=== PATIENT | female | born 1945 | race Caucasian/White ===

== ENCOUNTER → 2017-03-03 | Outpatient (CLI) | payer OTHER ==
[~2017-03-03] MED LIST: CARV12.52 PO; CLC100 PO; CYCL10TA6 PO; ENAL5TAB83 PO; FURO-85 PO; GABA-113 PO; HMLIS PO; INSU100I2 SQ; INSU1INJ33 SQ; LORA-741 PO; MIRA1TAB3 PO; OXYC-57 PO; PRAV20TA PO
[2017-03-03 18:20] LABS: RATIO 108.6 mcg/mg (0-30.0)
[2017-03-03 18:50] LABS: ALT/SGPT 24 U/L (12-78); BLOOD UREA NITROGEN 59 mg/dl (7-18); BUN/CREATININE RATIO 36.9 (10-20); CALCIUM 10.3 mg/dl (8.5-10.1); CARBON DIOXIDE 24 mmol/L (21-32); CHLORIDE 104 mmol/L (98-107); GLUCOSE 188 mg/dl (70-99); POTASSIUM 5.3 mmol/L (3.5-5.1); SODIUM 140 mmol/L (136-145)
[2017-03-03 19:01] LABS: ALB/GLOB RATIO 1.1 (0.9-2); ALKALINE PHOSPHATASE 60 U/L (45-117); AST/SGOT 12 U/L (15-37); CHOLESTEROL 227 mg/dl (0-200); CHOLESTEROL/HDL RATIO 2.2; HDL CHOLESTEROL 103 mg/dl; LDL CHOLESTEROL CALCULATED 98 mg/dl; THYROID STIMULATING HORMONE 0.638 uIu/ml (0.300-4.500); TRIGLYCERIDES 132 mg/dl (0-150); VERY LOW DENSITY LIPOPROT CALC 26 mg/dl
[2017-03-04 07:13] LABS: ESTIMATED AVERAGE GLUCOSE 169 mg/dl; HA1C FLAG Normal (Normal)
== END | disposition home or self-care (01) ==
LOC: C.LAB1850 16:25
PROVIDERS: ATTEND Nurse Practitioner Family
DX: E11.65 Type 2 diabetes mellitus with hyperglycemia (principal)

== ENCOUNTER → 2017-03-18 | Outpatient (CLI) | payer OTHER ==
[2017-03-18 14:54] LABS: BASO % 0.2 %; BASO ABS # 0.02 K/uL (0-0.2); COMPLETE YES; EOS % 0.2 %; HEMATOCRIT 38.9 % (37-47); IG% 0.2 %; LYMPH % 12.3 %; LYMPH ABS # 1.12 K/uL (1.2-3.4); MEAN CELL VOLUME 87.8 fL (80-100); MEAN CORPUSCULAR HEMOGLOBIN 29.6 pg (25-34); MEAN CORPUSCULAR HGB CONC 33.7 g/dl (32-36); MEAN PLATELET VOLUME 10.9 fL (7.4-10.4); MONO % 2.5 %; NEUT % 84.6 %; PLATELET COUNT 274 K/uL (130-400); RED BLOOD COUNT 4.43 M/uL (4.2-5.4); WHITE BLOOD COUNT 9.07 K/uL (4.8-10.8)
[2017-03-18 15:15] LABS: BLOOD UREA NITROGEN 56 mg/dl (7-18); BUN/CREATININE RATIO 37.2 (10-20); CALCIUM 10.2 mg/dl (8.5-10.1); CARBON DIOXIDE 27 mmol/L (21-32); CHLORIDE 107 mmol/L (98-107); GLUCOSE 209 mg/dl (70-99); MAGNESIUM 2.4 mg/dl (1.8-2.4); PHOSPHORUS 3.3 mg/dl (2.5-4.9); POTASSIUM 5.1 mmol/L (3.5-5.1); SODIUM 141 mmol/L (136-145)
[2017-03-18 15:27] LABS: MANUAL MICROSCOPIC REQUIRED? NO; REVIEW REQ? NO; URINE APPEARANCE CLEAR (CLEAR); URINE BILIRUBIN NEG (NEG); URINE COLOR ORANGE; URINE EPITHELIAL CELL AUTO 20-30 /lpf (0-5); URINE NITRITE NEG (NEG); URINE SPECIFIC GRAVITY 1.015 (1.000-1.030); UROBILINOGEN NEG (NEG); ZZUR CULT IF INDIC CLEAN CATCH NO
== END | disposition home or self-care (01) ==
LOC: C.LAB1850 13:27
PROVIDERS: ATTEND Internal Medicine Nephrology
DX: N17.9 Acute kidney failure, unspecified (principal)

== ENCOUNTER → 2017-05-13 | Outpatient (CLI) | payer OTHER ==
[2017-05-13 15:02] LABS: URINE PROTIEN/CREAT RATIO 0.2 (0-0.2); URINE TOTAL PROTEIN 7.6 mg/dl (0-11.9)
[2017-05-13 15:17] LABS: BLOOD UREA NITROGEN 39 mg/dl (7-18); CALCIUM 9.6 mg/dl (8.5-10.1); CARBON DIOXIDE 31 mmol/L (21-32); CHLORIDE 108 mmol/L (98-107); GLUCOSE 160 mg/dl (70-99); MAGNESIUM 1.8 mg/dl (1.8-2.4); PHOSPHORUS 3.1 mg/dl (2.5-4.9); POTASSIUM 3.8 mmol/L (3.5-5.1); SODIUM 145 mmol/L (136-145)
[2017-05-13 15:29] LABS: URINE APPEARANCE CLEAR (CLEAR); URINE BILIRUBIN NEG (NEG); URINE COLOR YELLOW; URINE NITRITE NEG (NEG); URINE PH 5.5 (4.5-7.5); URINE SPECIFIC GRAVITY 1.014 (1.000-1.030); UROBILINOGEN NEG (NEG); ZZUR CULT IF INDIC CLEAN CATCH NO
[2017-05-13 15:30] LABS: MANUAL MICROSCOPIC REQUIRED? NO; REVIEW REQ? NO
== END | disposition home or self-care (01) ==
LOC: C.LAB1850 12:48
PROVIDERS: ATTEND Internal Medicine Nephrology
DX: N17.9 Acute kidney failure, unspecified (principal)

== ENCOUNTER → 2017-05-28 | Outpatient (CLI) | payer OTHER ==
[~2017-05-28] MED LIST changes: +GADAVIST IV PRN
--- NOTE | 2017-05-28 15:04 | DIAGNOSTIC IMAGING REPORT ---
ABDOMINAL MRI WITH AND WITHOUT INTRAVENOUS CONTRAST HISTORY: N28.89 Renal mass TECHNIQUE: Multiplanar multisequence MRI of the abdomen was performed both before and after the intravenous administration of contrast to evaluate the kidneys. COMPARISON STUDY: Outside hospital renal ultrasound 04/30/2017. FINDINGS: There is confirmation of the 2.7 x 2.6 x 2.6 cm T2 hyperintense, T1 hypointense exophytic enhancing mass within the lateral interpolar region of the right kidney. This abuts but does not invade into the undersurface of the right hepatic lobe. No evidence for renal vein invasion. No hydronephrosis. There is a 1.2 cm T2 hyperintense, T1 hypointense lesion within the right hepatic lobe. This demonstrates a punctate focus of enhancement on the arterial phase with delayed filling. Therefore, this likely represents a hemangioma. The spleen, pancreas, gallbladder, and adrenal glands are unremarkable. Posterior fusion and decompression within the lumbar spine. There is an 8 mm T2 hyperintense nonenhancing lesion within the upper pole the left kidney. This is consistent with a cyst. IMPRESSION: 1. A 2.7 x 2.6 x 2.6 cm exophytic enhancing mass within the right kidney. This is consistent with a renal cell carcinoma until proven otherwise. 2. A 1.2 cm T2 hyperintense enhancing lesion within the right hepatic lobe. This has slightly assessed due to the small size but likely represents a hemangioma. Electronically signed by: Dioni Cowart M.D. 05/28/2017 3:03 PM Dictated Date/Time: 05/28/2017 2:51 PM
== END | disposition home or self-care (01) ==
LOC: C.MRI 12:23
PROVIDERS: ATTEND Urology
DX: N28.89 Other specified disorders of kidney and ureter (principal); K76.9 Liver disease, unspecified

== ENCOUNTER 2017-07-09 07:28 | Inpatient (IN) | payer OTHER ==
[2017-06-23 10:48] VITALS: BMI 47.0
--- NOTE | 2017-06-23 11:26 | PAT Medication Instructions ---
Service Date Jun 23, 2017. Current Home Medication List Carvedilol (Coreg), 12.5 MG PO BID Cyclobenzaprine Hcl (Flexeril), 10 MG PO DAILY PRN for BACK SPASM Enalapril (Vasotec), 5 MG PO QAM Furosemide (Lasix), 20 MG PO QAM Gabapentin (Neurontin), 300 MG PO BID Insulin Degludec (Tresiba Flextouch), 24 UNITS SQ HS Insulin Human Lispro (Humalog Kwikpen), 12 UNITS PO LUNCH Insulin Lispro (Human) (Humalog Kwikpen), 7 UNITS SQ QAM Insulin Lispro (Human) (Humalog Kwikpen), 15 UNITS SQ SUPPER Lorazepam (Ativan), 0.5 MG PO HS Mirabegron (Myrbetriq Er), 50 MG PO QAM Pravastatin (Pravachol ), 40 MG PO HS Medication Instructions For Your Scheduled Surgery - Hold the following medications the morning of surgery: Enalapril (Vasotec), 5 MG PO QAM Furosemide (Lasix), 20 MG PO QAM Cyclobenzaprine Hcl (Flexeril), 10 MG PO DAILY PRN for BACK SPASM Insulin Human Lispro (Humalog Kwikpen), 12 UNITS PO LUNCH Insulin Lispro (Human) (Humalog Kwikpen), 7 UNITS SQ QAM - Take the following medications the morning of surgery with a sip of water OTHERWISE NOTHING TO EAT OR DRINK AFTER MIDNIGHT: Gabapentin (Neurontin), 300 MG PO BID Carvedilol (Coreg), 12.5 MG PO BID Mirabegron (Myrbetriq Er), 50 MG PO QAM - Take the following medications as scheduled the night before surgery: Gabapentin (Neurontin), 300 MG PO BID Carvedilol (Coreg), 12.5 MG PO BID Lorazepam (Ativan), 0.5 MG PO HS Pravastatin (Pravachol ), 40 MG PO HS Cyclobenzaprine Hcl (Flexeril), 10 MG PO DAILY PRN for BACK SPASM Insulin Degludec (Tresiba Flextouch), 24 UNITS SQ HS Insulin Lispro (Human) (Humalog Kwikpen), 15 UNITS SQ SUPPER If you have any questions please call us at [phone] or [phone] or [phone]
[2017-06-23 12:27] LABS: BASO % 0.4 %; BASO ABS # 0.03 K/uL (0-0.2); COMPLETE YES; HEMATOCRIT 34.7 % (37-47); IG% 0.3 %; LYMPH % 26.5 %; LYMPH ABS # 1.97 K/uL (1.2-3.4); MEAN CELL VOLUME 90.6 fL (80-100); MEAN CORPUSCULAR HEMOGLOBIN 28.7 pg (25-34); MEAN CORPUSCULAR HGB CONC 31.7 g/dl (32-36); MEAN PLATELET VOLUME 9.8 fL (7.4-10.4); MONO % 7.7 %; NEUT % 62.1 %; PLATELET COUNT 327 K/uL (130-400); RED BLOOD COUNT 3.83 M/uL (4.2-5.4); WHITE BLOOD COUNT 7.42 K/uL (4.8-10.8)
[2017-06-23 12:36] LABS: URINE APPEARANCE CLEAR (CLEAR); URINE BILIRUBIN NEG (NEG); URINE COLOR YELLOW; URINE EPITHELIAL CELL AUTO >30 /lpf (0-5); URINE NITRITE NEG (NEG); URINE PH 6.5 (4.5-7.5); URINE SPECIFIC GRAVITY 1.018 (1.000-1.030); UROBILINOGEN NEG (NEG)
[2017-06-23 12:37] LABS: ALT/SGPT 18 U/L (12-78); AST/SGOT 12 U/L (15-37); BLOOD UREA NITROGEN 38 mg/dl (7-18); BUN/CREATININE RATIO 29.2 (10-20); CALCIUM 9.6 mg/dl (8.5-10.1); CARBON DIOXIDE 29 mmol/L (21-32); CHLORIDE 109 mmol/L (98-107); GLUCOSE 102 mg/dl (70-99); POTASSIUM 4.3 mmol/L (3.5-5.1); SODIUM 142 mmol/L (136-145)
[2017-06-23 12:39] LABS: MANUAL MICROSCOPIC REQUIRED? NO; REVIEW REQ? NO
[2017-06-23 12:40] LABS: ALB/GLOB RATIO 0.7 (0.9-2); ALKALINE PHOSPHATASE 120 U/L (45-117)
[~2017-07-09] VITALS: Ht 165.1 cm; Wt 128.5 kg
[2017-07-09] VITALS (8 sets, daily range): BP systolic 120–168; BP diastolic 67–83; PULSE 73–95; TEMP 36.2–36.5; O2SAT 95–100; BMI 47.0
[~2017-07-09 07:28] MED LIST changes: +CEFAZOLIN 3000 MG/65 ML D5W IV SCH; -CLC100 PO; -GADAVIST IV PRN; +LACTATED RINGER'S 1000ML 1,000 ML IV SCH; -OXYC-57 PO
[2017-07-09] MEDS ORDERED: EpHEDrine SULFATE INJ 50 MG/ML AMP IV PRN (07:30)
[2017-07-09] MEDS ORDERED: ATROPINE SULFATE 0.1 MG/ML 5ML SYR IV PRN (07:30)
[2017-07-09] MEDS ORDERED: ONDANSETRON INJ 2 MG/ML 2 ML VIAL IV PRN ×2 (07:30→14:30)
[2017-07-09] MEDS ORDERED: HYDROmorphone INJ 1 MG/ML SYR IV PRN ×2 (07:30→14:30)
[2017-07-09] MEDS ORDERED: FENTANYL CITRATE INJ 50 MCG/1 ML 2 ML VIAL IV PRN (07:30)
[2017-07-09] MEDS ORDERED: PROPOFOL IV EMULSION 10 MG/ML 20 ML VIAL IV ONE (08:22)
[2017-07-09] MEDS ORDERED: DEXAMETHASONE SOD INJ 4 MG/ML VIAL ONE (08:22)
[2017-07-09] MEDS ORDERED: FENTANYL CITRATE INJ 50 MCG/1 ML 2 ML VIAL ONE ×4 (08:22→15:11)
[2017-07-09] MEDS ORDERED: ROCURONIUM BROMIDE 10 MG/ML 5 ML VIAL IV ONE (08:22)
[2017-07-09] MEDS ORDERED: ONDANSETRON INJ 2 MG/ML 2 ML VIAL ONE (08:22)
[2017-07-09] MEDS ORDERED: LIDOCAINE HCL 2% 2 ML VIAL (20MG/ML) ONE (08:22)
--- NOTE | 2017-07-09 10:25 | History & Physical Bridge Note ---
H&P Re-Evaluation Bridge Note: I have examined the patient, reviewed the History & Physical and in the interval since the performance of the History & Physical I have noted the following changes of clinical significance: No changes noted
[2017-07-09] MEDS ORDERED: ACETAMINOPHEN 1000 MG/100 ML IV IV ONE (10:31)
[2017-07-09] MEDS ORDERED: GELATIN SPONGE SZ 100 ONE (11:10)
[2017-07-09] MEDS ORDERED: MANNITOL 25% 50 ML VIAL ONE ×2 (11:11→14:09)
[2017-07-09] MEDS ORDERED: BUPIVACAINE 0.5 % 5 MG/1 ML MPF 30ML VIAL ONE (11:11)
[2017-07-09] MEDS ORDERED: ALBUMIN HUMAN 5% 12.5 GM/250 ML VIAL IV ONE (11:37)
[2017-07-09] MEDS ORDERED: SUCCINYLCHOLINE 100MG/5ML SYR IV ONE (12:32)
[2017-07-09] MEDS ORDERED: CISATRACURIUM BESYLATE IV SOLN 2 MG/ML 10 ML VIAL ONE (12:32)
[2017-07-09] MEDS ORDERED: EpHEDrine SULFATE INJ 50 MG/ML AMP ONE (12:50)
[2017-07-09] MEDS ORDERED: PHENYLEPHRINE 100MCG/ML 5ML SYR ONE (12:50)
[2017-07-09] MEDS ORDERED: FLOSEAL HEMOSTATIC MATRIX 10ML TOP ONE (13:57)
[2017-07-09] MEDS ORDERED: TISSEEL FIBRIN SEALANT 10ML TOP ONE (13:58)
[2017-07-09] MEDS ORDERED: INSULIN PROTOCOL GOAL RANGE ONE (14:30)
[2017-07-09] MEDS ORDERED: CYCLOBENZAPRINE HCL 10 MG TAB PO PRN (14:30)
[2017-07-09] MEDS ORDERED: ACETAMINOPHEN 325 MG TAB PO PRN (14:30)
[2017-07-09] MEDS ORDERED: GLUCOSE 10 TABS/TUBE PO PRN (14:45)
[2017-07-09] MEDS ORDERED: DEXTROSE 50% 50 ML SYR IV PRN (14:45)
[2017-07-09] MEDS ORDERED: GLUCOSE 40% GEL 15 GM TUBE PO PRN (14:45)
[2017-07-09] MEDS ORDERED: GLUCAGON FOR INJ 1 MG VIAL SQ PRN (14:45)
[2017-07-09] MEDS ORDERED: PHARMACY GLYCEMIC MGMT CONSULT SCH (14:52)
--- NOTE | 2017-07-09 15:08 | Pharmacy Progress Note ---
Glycemic Control Intl Consult Date of Service Jul 09, 2017. Scope Glycemic Pharmacist consulted by Dr Artur Ham on 07/09/17 for glycemic control and to write orders per [facility] inpatient glycemic control protocol Objective Weight (Kilograms): 128.50 Accuchecks BSG (last 24hrs): Test 07/09/17 08:19 07/09/17 14:27 Bedside Glucose 87 mg/dl (70-90) Laboratory Data (last 24hrs) Test 07/09/17 14:27 Recent Pertinent Medications Outpatient Anti-diabetic Regimen: * Tresiba (insulin degludec) 25 units HS * Humalog 7 units with breakfast, 12 units with lunch, 15 units with dinner * A1c = 7.5 % 03/03/17 Risk Factors for Insulin Resistance: * Steroids: Dexamethasone 8mg IV x1 today in OR * Recent Surgery: s/p right partial nephrectomy * Diet:clears Assessment & Plan ASSESSMENT: * 72 year old female type 2 diabetic s/p right partial nephrectomy. BSG prior to surgery 87mg/dl * Patient is currently receiving an average of 59 units of insulin per day at home * 25 units of basal insulin * 34 units of prandial/correctional insulin * I will start patient on same dose of basal insulin and CR and CF slightly tighter d/t IV steroids, but not too tight as patient is only on a clear liquid diet, and check BSG overnight for additional doses of Novolog of steroid induced hyperglycemia. * ADA & AACE recommend a goal blood sugar range 140-180 mg/dl for the majority of critically ill & non-critically ill patients. However, more stringent targets may be selected in individual cases. Will utilize more stringent goal of 110-140mg/dl based on patient age & comorbidities. Additionally, tighter glycemic control is warranted to facilitate wound/infection healing. PLAN FOR INPATIENT GLYCEMIC CONTROL: * Basal insulin with LANTUS 25 units SQ HS * Correctional Insulin with NOVOLOG per scale ACHS or Q6hrs while NPO and at 0000 and 0400 overnight * Goal Range: Low 110 mg/dL - High 140 mg/dL * Correction Factor: 20 mg/dL/unit * Nutritional / Prandial insulin per carb ratio of 1 unit per 7 grams CHO consumed * Please note that the plan above was derived based on current level of insulin resistance and hospital stress. These recommendations are appropriate for inpatient admission only. Plan of care upon discharge will need to be reassessed to avoid potential outpatient hypo/hyperglycemia. Thank you.
--- NOTE | 2017-07-09 15:39 | Anesthesiology Progress Note ---
Anesthesia Post Op Note Date & Time Jul 09, 2017 at 15:39 Vital Signs Pain Intensity: 4 Vital Signs Past 12 Hours Date Time Temp Pulse Resp B/P (MAP) Pulse Ox O2 Delivery O2 Flow Rate FiO2 07/09/17 15:35 36.4 72 16 133/44 97 Nasal Cannula 4 07/09/17 15:25 71 16 139/49 98 Nasal Cannula 4 07/09/17 15:15 67 16 143/51 100 Oxymask 10 07/09/17 15:05 68 16 150/56 100 Oxymask 10 07/09/17 14:55 36.8 70 16 135/48 100 Oxymask 10 07/09/17 08:05 36.4 78 20 168/67 95 Room Air Notes Mental Status: alert / awake / arousable, participated in evaluation Pt Amnestic to Procedure: Yes Nausea / Vomiting: adequately controlled Pain: adequately controlled Airway Patency, RR, SpO2: stable & adequate BP & HR: stable & adequate Hydration State: stable & adequate Anesthetic Complications: no major complications apparent
--- NOTE | 2017-07-09 16:13 | [facility] Post Operative Brief Note ---
Immediate Operative Summary Operative Date Jul 09, 2017. Pre-Operative Diagnosis Right renal mass Post-Operative Diagnosis Same as preop Procedure(s) Performed Robotic-assisted Laparoscopic Right Partial Nephrectomy Surgeon Dr. Caleb Ham Electric Clock Mechanic Surgeon(s) Dr. Bertha Amaral Estimated Blood Loss 70 cc Findings No violation of tumor, collecting system entered and closed using 3-0 vicryl, watertight, excellent hemostasis after completion, 21 minutes warm ischemia time. Specimens A: right renal mass Drains Shukla to gravity, #10 IGNACIA drain to bulb suction Anesthesia GAET + local Complication(s) None Disposition Recovery Room / PACU
--- NOTE | 2017-07-09 16:23 | [facility] Operative Report ---
Operative Report Operative Date Jul 09, 2017. Pre-Operative Diagnosis Right renal mass Post-Operative Diagnosis Same as preop Procedure(s) Performed Robotic-assisted Laparoscopic Right Partial Nephrectomy Surgeon Dr. Caleb Ham Cigar Head Perforator Surgeon(s) Dr. Bertha Amaral Estimated Blood Loss 70 cc Findings No violation of tumor, collecting system entered and closed using 3-0 vicryl, watertight, excellent hemostasis after completion, 21 minutes warm ischemia time. Specimens A: right renal mass Drains Shukla to gravity, #10 IGNACIA drain to bulb suction Anesthesia GAET + local Complication(s) None Disposition Recovery Room / PACU Indications 72-year-old female found to have a 3 cm right central renal mass, exophytic which is suspicious for renal cell carcinoma. Please see H&P for further details. After discussion of risks and benefits of various forms of intervention she has decided upon a robot-assisted laparoscopic right partial nephrectomy to manage her disease. Intravenous antibiotics in the form of Ancef for provided. SCDs used for DVT prophylaxis. Description of Procedure Patient was properly identified and brought into the operative suite after identification of appropriate consent of the chart. General anesthesia with endotracheal intubation was initiated and patient was prepped and draped in standard fashion for this procedure. Full timeout procedure was followed. Patient was placed in a gentle right flank up position with flexion on the table. All pressure points were carefully padded. A 12 mm incision was made in the midclavicular line on the right-hand side and the abdomen was entered under direct visualization using a 12 mm visual obturator and inserted the laparoscope. All port sites were anesthetized with local prior to incision. Abdomen was insufflated to 15 mmHg and no evidence of injury on placement of visual obturator any of the laparoscopic ports were appreciated. 2 12 mm physician assistant psychiatry ports were placed as well as 2 7 mm robotic ports. Minimal intra- abdominal adhesions were present but these were outside of the field of dissection. Patient's renal mass was noted to be clearly visible with a very medial position of her colon not requiring significant mobilization. Liver was also noted to be adequately out of the way to avoid a liver retractor. The white line of Toldt was incised and the retroperitoneum accessed. Copious rectoperineal fat was appreciated. Duodenum was visualized and kocherized. IVC was noted as was a bifurcated gonadal vein. Ureter was identified and the psoas muscle was accessed. This was used to place lateral traction on the kidney and dissection was carried up on the lateral aspect of the IVC until the renal vein was encountered. A short adrenal vein was appreciated. Renal vein was circumscribed and the renal artery was identified caudad to the renal vein and able to be cleaned without access difficulty. Once the hilum was well- defined and the vessels cleaned attention was turned to the area of the tumor. Drop-in ultrasound probe was used to find the deep margins which were noted to be acceptably superficial. However it is likely that this was somewhat the case due to the small size of the kidney as on dissection the tumor was abutting the collecting system which had to be entered to avoid violating the tumor plane. In any case the renal parenchyma was scored circumferentially and the kidney was mobilized outside of Geroda's fascia to allow for easy dissection and apposition of the edges after completion of dissection. Intravenous mannitol was performed and a single short curved clamp was placed on the artery as well as a single short straight clamp on the vein. Cold scissors were used to excise the tumor with minimal bleeding. At the deepest aspect the tumor capsule could be seen but this was kept intact and not violated. As noted the collecting system was entered at the deepest aspect of the dissection. Once the tumor was freed from the kidney the defect was closed in 2 layers with a 3-0 Vicryl suture being used to oversew the collecting system and deep vessels. 2 of these sutures were used to ensure excellent, watertight closure of the collecting system. The first was anchored at the level of the renal capsule using Weck clips, and the second was tied to itself. After this was complete the lock suture with Weck pledgets were used to close the renal defect. FloSeal tissue sealant was worked into the small venous vessels in the parenchyma. After the defect was closed the renal vein then renal artery clamp removed with a total of 21 minutes of warm ischemia time. Good revascularization of the kidney was appreciated with no bleeding from the renal defect. Sutures were removed from the abdomen with a correct suture and instrument count. Tisseel tissue sealant was placed over the defect and renal hilum for additional hemostasis. Gerota's fascia was then closed using another V lock suture. IGNACIA drain was brought in and placed over the retroperitoneal closure via the lower most robotic port. Tumor was placed within an Endo Catch bag which was placed via the lower most 12 mm physician assistant psychiatry port. Robotic instruments removed as were the robotic ports. Tumor extraction site was opened sufficiently to allow for removal of the specimen without disruption. Fascia was closed using a 0 Vicryl suture on a UR 5 needle. A 12 mm ports were closed at the level of the fascia using an 0 Vicryl suture on a UR 6 needle. Nylon was used to secure the IGNACIA drain in place and excess carbon dioxide gas was removed from the abdomen. Skin was closed using Monocryl and Dermabond. Anesthesia was reversed and patient was transferred to the recovery room in stable condition. Follow-up care: Patient will be admitted to the floor for standard postoperative management. I attest to the content of the Intraoperative Record and any orders documented therein. Any exceptions are noted below.
--- NOTE | 2017-07-09 16:44 | Progress Note ---
Progress Note Date of Service Jul 09, 2017. Progress Note PM rounds: Patient somnolent in bed, no OOB yet, notes appropriate postop R flank pain. Postop labs pending NAD Good respiratory excursion Soft, ND, NT inc c/d/i, IGNACIA with sanguinous output A/P 72 yo female POD#0 s/p R robotic partial nephrectomy Clears tonight, OOBTC when more alert Advance diet and activity tomorrow when more alert Care d/w patient and family
[2017-07-09] MEDS: INSULIN ASPART 100 UNITS/ML 3 ML PEN SC SCH ×4 (17:15→23:48)
[2017-07-09] MEDS: LACTATED RINGER'S 1000ML 1,000 ML IV SCH ×2 (17:27→23:38)
[2017-07-09 17:30] LABS: BASO % 0.2 %; BASO ABS # 0.02 K/uL (0-0.2); COMPLETE YES; EOS % 0.2 %; IG% 0.3 %; LYMPH % 7.7 %; LYMPH ABS # 0.81 K/uL (1.2-3.4); MEAN CELL VOLUME 89.9 fL (80-100); MEAN CORPUSCULAR HEMOGLOBIN 29.6 pg (25-34); MEAN CORPUSCULAR HGB CONC 32.9 g/dl (32-36); MEAN PLATELET VOLUME 9.8 fL (7.4-10.4); MONO % 2.8 %; NEUT % 88.8 %; PLATELET COUNT 256 K/uL (130-400); RED BLOOD COUNT 3.45 M/uL (4.2-5.4); WHITE BLOOD COUNT 10.53 K/uL (4.8-10.8)
[2017-07-09 18:05] LABS: CALCIUM 9.8 mg/dl (8.5-10.1); CREATININE 1.2 mg/dl (0.60-1.20)
[2017-07-09] MEDS: FAMOTIDINE IV INJ 20 MG in DEXTROSE 5% 100ML 100 ML IV SCH (18:38)
[2017-07-09] MEDS: CEFAZOLIN IV 1,000 MG in DEXTROSE 5% 50ML 50 ML IV SCH (19:15)
[2017-07-09] MEDS: LORAZEPAM 0.5 MG TAB PO SCH (21:01)
[2017-07-09] MEDS: DOCUSATE SODIUM 100 MG CAP PO SCH (21:02)
[2017-07-09] MEDS: PRAVASTATIN SOD 20 MG TAB PO SCH (21:02)
[2017-07-09] MEDS: CARVEDILOL 12.5 MG TAB PO SCH (21:02)
[2017-07-09] MEDS: GABAPENTIN 300 MG CAP PO SCH (21:02)
[2017-07-09] MEDS: INSULIN GLARGINE SOLOSTAR 100 UNITS/ML 3 ML PEN SC SCH (21:03)
[2017-07-09] MEDS: OXYCODONE/ACETAMINOPHEN 5-325 TAB PO PRN (23:39)
[2017-07-10] VITALS (7 sets, daily range): BP systolic 100–126; BP diastolic 48–71; PULSE 85–102; TEMP 36.2–36.7; O2SAT 92–97; Ht 165.1 cm; Wt 128.5 kg
[2017-07-10] MEDS: CEFAZOLIN IV 1,000 MG in DEXTROSE 5% 50ML 50 ML IV SCH ×2 (01:57→10:32)
[2017-07-10] MEDS: INSULIN ASPART 100 UNITS/ML 3 ML PEN SC SCH ×5 (04:50→21:04)
[2017-07-10] MEDS: FAMOTIDINE IV INJ 20 MG in DEXTROSE 5% 100ML 100 ML IV SCH (05:45)
[2017-07-10 08:26] LABS: BUN/CREATININE RATIO 17.8 (10-20); CALCIUM 9.4 mg/dl (8.5-10.1); CREATININE 1.3 mg/dl (0.60-1.20); POTASSIUM 4.2 mmol/L (3.5-5.1)
[2017-07-10] MEDS ORDERED: CLC100 PO (08:26)
[2017-07-10] MEDS ORDERED: OXYC-57 PO (08:26)
--- NOTE | 2017-07-10 08:28 | Discharge Instructions ---
Discharge Instructions Date of Service Jul 10, 2017. Admission Reason for Admission: Right Renal Mass Discharge Discharge Diagnosis / Problem: Right renal mass Discharge Goals Goal(s): Improve disease control, Prevent Disease Progression Activity Recommendations Activity Limitations: per Instructions/Follow-up section . Instructions / Follow-Up Instructions / Follow-Up 1. Do not lift >15lbs x 6 weeks. 2. No heavy exercise x 6 weeks. You may engage in light activity such as walking and stairs as tolerated. 3. Do not drive x [address] while taking narcotics. 4. Follow-up as scheduled. Please call our office at [phone] if you need to reschedule for any reason. . Current Hospital Diet Hospital Diet(s): Regular Diet, Diabetes Type 2 Diet Discharge Diet Recommended Diet: Regular Diet Procedures Procedures Performed: Robotic-assisted Laparoscopic Right Partial Nephrectomy Pending Studies Studies pending at discharge: no Medical Emergencies . Who to Call and When: Medical Emergencies: If at any time you feel your situation is an emergency, please call 911 immediately. . Non-Emergent Contact Non-Emergency issues call your: Urologist Call Non-Emergent contact if: temperature is above 101.5 . . "Provider Documentation" section prepared by Heather Jaquez. . VTE Core Measure Inpt VTE Proph given/why not?: Unfractionated heparin SQ, SCD's [place] Drug Monitoring Program Search Results: no issues identified
--- NOTE | 2017-07-10 08:29 | Progress Note ---
Subjective Date of Service: Jul 10, 2017. Subjective Pt evaluation today including: conversation w/ patient, physical exam, chart review, lab review (no AM labs yet), review of inpatient medication list Pain: R flank and abdomen pain, appropriate postop PO Intake: Emesis yesterday with clears Voiding: gamez catheter in place (urine clear) 72 yo female POD#1 s/p R robotic partial nephrectomy, feeling better this AM. She notes emesis with clears yesterday, dizziness with attempted ambulation. She notes her appetite is improved today, in good spirits, no other complaints. AM labs pending. Review of Systems Constitutional: No fever, No chills Eyes: No worsening of vision ENT: No hearing loss, No unusual epistaxis Respiratory: No sputum, No wheezing Cardiac: No chest pain Abdomen: + vomiting (last PM) Musculoskeletal: No muscle pain Female : No hematuria Neurologic: No memory loss, No paralysis Psychiatric: No depression symptoms Endo: + excessive thirst, No fatigue Skin: No new/changing skin lesions, No color change Objective Vital Signs Date Time Temp Pulse Resp B/P (MAP) Pulse Ox O2 Delivery O2 Flow Rate FiO2 07/10/17 08:05 Room Air 07/10/17 07:32 36.7 101 18 123/48 (73) 92 Room Air 07/10/17 04:02 36.6 102 17 123/70 (87) 92 Room Air 07/09/17 23:32 Room Air 07/09/17 23:12 36.5 95 17 137/72 (93) 97 Room Air 07/09/17 21:01 94 165/83 (110) 07/09/17 19:10 36.3 88 18 141/80 (100) 100 Nasal Cannula 2.0 07/09/17 18:10 36.3 89 18 139/79 (99) 99 Nasal Cannula 2.0 07/09/17 17:13 36.2 80 18 120/74 (89) 100 Nasal Cannula 2.0 07/09/17 16:40 78 18 135/73 (93) 99 Nasal Cannula 2.0 07/09/17 16:10 99 Nasal Cannula 2.0 07/09/17 16:10 Nasal Cannula 2.0 07/09/17 16:10 36.3 73 18 129/70 (89) 98 Nasal Cannula 2.0 07/09/17 15:50 36.4 157/68 07/09/17 15:45 36.1 71 16 Arterial Line 99 Nasal Cannula 2 07/09/17 15:35 36.4 72 16 133/44 97 Nasal Cannula 4 07/09/17 15:25 71 16 139/49 98 Nasal Cannula 4 07/09/17 15:15 67 16 143/51 100 Oxymask 10 07/09/17 15:05 68 16 150/56 100 Oxymask 10 07/09/17 14:55 36.8 70 16 135/48 100 Oxymask 10 Physical Exam General Appearance: no apparent distress, + obese Eyes: normal inspection ENT: normal ENT inspection, hearing grossly normal Neck: supple, no adenopathy Respiratory/Chest: no respiratory distress, no accessory muscle use Cardiovascular: no JVD Abdomen: non tender, soft, + pertinent finding (inc c/d/i) Neurologic/Psychiatric: alert, oriented x 3 Skin: normal color Laboratory Results Last 24 Hours Test 07/09/17 08:19 07/09/17 14:56 07/09/17 17:22 07/09/17 18:31 Bedside Glucose 87 mg/dl 116 mg/dl 133 mg/dl White Blood Count 10.53 K/uL Red Blood Count 3.45 M/uL Hemoglobin 10.2 g/dL Hematocrit 31.0 % Mean Corpuscular Volume 89.9 fL Mean Corpuscular Hemoglobin 29.6 pg Mean Corpuscular Hemoglobin Concent 32.9 g/dl Platelet Count 256 K/uL Mean Platelet Volume 9.8 fL Neutrophils (%) (Auto) 88.8 % Lymphocytes (%) (Auto) 7.7 % Monocytes (%) (Auto) 2.8 % Eosinophils (%) (Auto) 0.2 % Basophils (%) (Auto) 0.2 % Neutrophils # (Auto) 9.36 K/uL Lymphocytes # (Auto) 0.81 K/uL Monocytes # (Auto) 0.29 K/uL Eosinophils # (Auto) 0.02 K/uL Basophils # (Auto) 0.02 K/uL RDW Standard Deviation 43.8 fL RDW Coefficient of Variation 13.3 % Immature Granulocyte % (Auto) 0.3 % Immature Granulocyte # (Auto) 0.03 K/uL Sodium Level 140 mmol/L Potassium Level 4.0 mmol/L Chloride Level 108 mmol/L Carbon Dioxide Level 26 mmol/L Anion Gap 6.0 mmol/L Blood Urea Nitrogen 24 mg/dl Creatinine 1.20 mg/dl Est Creatinine Clear Calc Drug Dose 58.1 ml/min Estimated GFR () 52.7 Estimated GFR (Non- 45.4 BUN/Creatinine Ratio 20.0 Random Glucose 131 mg/dl Calcium Level 9.8 mg/dl Test 07/09/17 20:42 07/09/17 23:43 07/10/17 04:00 07/10/17 07:58 Bedside Glucose 149 mg/dl 146 mg/dl 157 mg/dl Assessment and Plan A/P 72 yo female POD#1 s/p R robotic partial nephrectomy. Will readvance diet this AM - soft mechanical, ambulate in hallways, PT evaluate. Check AM labs, repeat tomorrow. Intraop findings reviewed. GLORIA Gamez today. Anticipate GLORIA IGNACIA and GLORIA home tomorrow. Discharge planning: home
[2017-07-10] MEDS: DOCUSATE SODIUM 100 MG CAP PO SCH ×2 (08:33→20:57)
[2017-07-10] MEDS: LACTATED RINGER'S 1000ML 1,000 ML IV SCH ×3 (08:33→23:46)
[2017-07-10] MEDS: CARVEDILOL 12.5 MG TAB PO SCH ×2 (08:34→20:58)
[2017-07-10] MEDS: FUROSEMIDE 20 MG TAB PO SCH (08:34)
[2017-07-10] MEDS: ENALAPRIL MALEATE 5 MG TAB PO SCH (08:35)
[2017-07-10] MEDS: MIRABEGRON ER 25 MG TAB PO SCH (08:35)
[2017-07-10] MEDS: GABAPENTIN 300 MG CAP PO SCH ×2 (08:35→20:58)
[2017-07-10 08:42] LABS: HEMATOCRIT 30.8 % (37-47); MEAN CELL VOLUME 87.3 fL (80-100); MEAN CORPUSCULAR HEMOGLOBIN 29.7 pg (25-34); MEAN CORPUSCULAR HGB CONC 34.1 g/dl (32-36); MEAN PLATELET VOLUME 10.8 fL (7.4-10.4); PLATELET COUNT 314 K/uL (130-400); RED BLOOD COUNT 3.53 M/uL (4.2-5.4); WHITE BLOOD COUNT 13.43 K/uL (4.8-10.8)
[2017-07-10 08:43] LABS: BASO ABS # 0.12 K/uL (0-0.2); BASOPHIL % 0.9 %; COMPLETE YES; LYMPH ABS # 0.47 K/uL (1.2-3.4); LYMPHOCYTE % 3.5 %; NEUTROPHILS % 86.8 %
[2017-07-10] MEDS: HYDROCODONE/ACETAMOPHEN 5/325MG TAB PO PRN ×2 (08:44→17:09)
--- NOTE | 2017-07-10 09:21 | Clinical Documentation Query ---
CLINICAL DOCUMENTATION QUERY Dr. COVINGTON, In your clinical opinion is this patient being managed for: ( X ) Chronic kidney disease, stage 3 ( ) Not Agree ( ) Other explanation of clinical findings (Please Explain) ( ) Unable to determine (Please Define) ( ) Need to Discuss The medical record reflects the following clinical findings, treatment, and risk factors. Clinical Indicators: 72 yo female presenting with a R renal mass suspicious for renal cell carcinoma. Review of historical GFR showed range of 32.3-45.4 over the past 6 months. Nursing admission assessment indicates pt reported hx of kidney disease. Treatment: monitor PRP's, treat comorbid conditions, I/O Risk Factors: age, DM II, HTN Please clarify and document your clinical opinion in the progress notes and discharge summary. Terms such as "probable", "suspected", "likely", "questionable", "possible", or "still to be ruled out" are acceptable. IF IN AGREEMENT, YOU MUST DOCUMENT ABOVE DIAGNOSTIC STATEMENT IN DAILY PROGRESS NOTES AND DISCHARGE SUMMARY. This document is not part of the patient's record. Thank You, Estefany Santamaria, RN [phone]
--- NOTE | 2017-07-10 13:44 | Anesthesiology Progress Note ---
Anesthesia Post Op Note Date & Time Jul 10, 2017 at 13:44 Vital Signs Pain Intensity: 5.0 Vital Signs Past 12 Hours Date Time Temp Pulse Resp B/P (MAP) Pulse Ox O2 Delivery O2 Flow Rate FiO2 07/10/17 11:05 36.2 85 18 122/69 (86) 93 Room Air 07/10/17 08:05 Room Air 07/10/17 07:32 36.7 101 18 123/48 (73) 92 Room Air 07/10/17 04:02 36.6 102 17 123/70 (87) 92 Room Air Notes Mental Status: alert / awake / arousable, participated in evaluation Pt Amnestic to Procedure: Yes Nausea / Vomiting: adequately controlled Pain: adequately controlled Airway Patency, RR, SpO2: stable & adequate BP & HR: stable & adequate Hydration State: stable & adequate Anesthetic Complications: no major complications apparent
[2017-07-10] MEDS: LORAZEPAM 0.5 MG TAB PO SCH (20:55)
[2017-07-10] MEDS: PRAVASTATIN SOD 20 MG TAB PO SCH (20:59)
[2017-07-10] MEDS: FAMOTIDINE 20 MG TAB PO SCH (21:00)
[2017-07-10] MEDS: INSULIN GLARGINE SOLOSTAR 100 UNITS/ML 3 ML PEN SC SCH (21:05)
[2017-07-11] MEDS: HYDROCODONE/ACETAMOPHEN 5/325MG TAB PO PRN ×3 (00:10→21:24)
[2017-07-11 07:15] VITALS: BP 121/69; PULSE 85; TEMP 36.5; O2SAT 94
[2017-07-11 07:40] LABS: BASO % 0.2 %; BASO ABS # 0.02 K/uL (0-0.2); COMPLETE YES; IG% 0.2 %; LYMPH % 18.9 %; MEAN CELL VOLUME 90.1 fL (80-100); MEAN CORPUSCULAR HEMOGLOBIN 28.5 pg (25-34); MEAN CORPUSCULAR HGB CONC 31.6 g/dl (32-36); MEAN PLATELET VOLUME 9.9 fL (7.4-10.4); MONO % 10.8 %; NEUT % 68.9 %; PLATELET COUNT 300 K/uL (130-400); RED BLOOD COUNT 3.44 M/uL (4.2-5.4); WHITE BLOOD COUNT 11.12 K/uL (4.8-10.8)
[2017-07-11 08:14] LABS: BUN/CREATININE RATIO 12.6 (10-20); CALCIUM 9.4 mg/dl (8.5-10.1); CREATININE 1.9 mg/dl (0.60-1.20); POTASSIUM 4.1 mmol/L (3.5-5.1)
[2017-07-11] MEDS: OXYCODONE/ACETAMINOPHEN 5-325 TAB PO PRN (08:19)
[2017-07-11] MEDS: FAMOTIDINE 20 MG TAB PO SCH ×2 (08:21→21:18)
[2017-07-11] MEDS: MIRABEGRON ER 25 MG TAB PO SCH (08:21)
[2017-07-11] MEDS: DOCUSATE SODIUM 100 MG CAP PO SCH ×2 (08:21→21:17)
[2017-07-11] MEDS: GABAPENTIN 300 MG CAP PO SCH ×2 (08:21→21:17)
[2017-07-11] MEDS: CARVEDILOL 12.5 MG TAB PO SCH ×2 (08:22→21:16)
[2017-07-11] MEDS: ENALAPRIL MALEATE 5 MG TAB PO SCH (08:22)
[2017-07-11] MEDS: LACTATED RINGER'S 1000ML 1,000 ML IV SCH (08:27)
[2017-07-11] MEDS: FUROSEMIDE 20 MG TAB PO SCH (09:15)
[2017-07-11] MEDS: INSULIN ASPART 100 UNITS/ML 3 ML PEN SC SCH ×4 (09:16→20:50)
--- NOTE | 2017-07-11 11:55 | Progress Note ---
Subjective Date of Service: Jul 11, 2017. Subjective Pt evaluation today including: conversation w/ patient, conversation w/ family , physical exam, chart review, lab review Voiding: no voiding problems, no incontinence Pt complaining of numbness and pain in l hip . She has had back surgery and per pt and daughter she has had this before . She denies nausea but also flatus. Ate breakfast. Pt lives over an hour away. She ambulated in [place] with pt yesterday but not at all today . Creatinine up to 1.9 today Hct stable and wbc down Objective Vital Signs Date Time Temp Pulse Resp B/P (MAP) Pulse Ox O2 Delivery O2 Flow Rate FiO2 07/11/17 08:00 Room Air 07/11/17 07:15 36.5 85 16 121/69 (86) 94 Room Air 07/10/17 23:42 Room Air 07/10/17 23:30 36.6 95 16 100/59 (73) 94 Room Air 07/10/17 20:52 88 114/58 (76) 07/10/17 16:00 97 Room Air 07/10/17 15:09 36.5 86 20 126/71 (89) 97 Room Air Physical Exam General Appearance: + mild distress Respiratory/Chest: lungs clear Abdomen: soft, + pertinent finding (bowel sounds present but sparse) Extremities: no pedal edema, + pertinent finding (no calf tenderness) Neurologic/Psychiatric: alert Laboratory Results Last 24 Hours Test 07/10/17 11:59 07/10/17 14:36 07/10/17 16:58 07/10/17 20:12 Bedside Glucose 222 mg/dl 169 mg/dl 181 mg/dl Hepatitis C Antibody Screen NEG Test 07/11/17 07:17 07/11/17 08:04 White Blood Count 11.12 K/uL Red Blood Count 3.44 M/uL Hemoglobin 9.8 g/dL Hematocrit 31.0 % Mean Corpuscular Volume 90.1 fL Mean Corpuscular Hemoglobin 28.5 pg Mean Corpuscular Hemoglobin Concent 31.6 g/dl Platelet Count 300 K/uL Mean Platelet Volume 9.9 fL Neutrophils (%) (Auto) 68.9 % Lymphocytes (%) (Auto) 18.9 % Monocytes (%) (Auto) 10.8 % Eosinophils (%) (Auto) 1.0 % Basophils (%) (Auto) 0.2 % Neutrophils # (Auto) 7.67 K/uL Lymphocytes # (Auto) 2.10 K/uL Monocytes # (Auto) 1.20 K/uL Eosinophils # (Auto) 0.11 K/uL Basophils # (Auto) 0.02 K/uL RDW Standard Deviation 45.0 fL RDW Coefficient of Variation 13.7 % Immature Granulocyte % (Auto) 0.2 % Immature Granulocyte # (Auto) 0.02 K/uL Sodium Level 140 mmol/L Potassium Level 4.1 mmol/L Chloride Level 106 mmol/L Carbon Dioxide Level 27 mmol/L Anion Gap 7.0 mmol/L Blood Urea Nitrogen 24 mg/dl Creatinine 1.90 mg/dl Est Creatinine Clear Calc Drug Dose 36.7 ml/min Estimated GFR () 30.2 Estimated GFR (Non- 26.1 BUN/Creatinine Ratio 12.6 Random Glucose 141 mg/dl Calcium Level 9.4 mg/dl Bedside Glucose 148 mg/dl Assessment and Plan Will decrease lr at 125 to 1/2 ns at 60 Get pt oob to ambulate in [place] consult hospitalist to assess diabetes management and fluid balance recheck creatinine in am Discharge planning: home
[2017-07-11] MEDS ORDERED: NURSING VERBAL MED ORDER ONE (12:00)
[2017-07-11] MEDS ORDERED: SODIUM CHLORIDE 0.45% 1000ML 1,000 ML IV SCH (12:15)
--- NOTE | 2017-07-11 12:19 | Pharmacy Progress Note ---
Glycemic Control Progress Note Date of Service Jul 11, 2017. Scope Glycemic Pharmacist consulted for glycemic control to write orders per [facility] ED inpatient glycemic control protocol. Objective Accuchecks BSG (last 24hrs): Test 07/10/17 16:58 07/10/17 20:12 07/11/17 07:17 07/11/17 08:04 Bedside Glucose 169 mg/dl (70-90) 181 mg/dl (70-90) 148 mg/dl (70-90) Random Glucose 141 mg/dl (70-99) Recent Pertinent Medications Outpatient Anti-diabetic Regimen: * Tresiba (insulin degludec) 25 units HS * Humalog 7 units with breakfast, 12 units with lunch, 15 units with dinner * A1c = 7.5 % 03/03/17 Risk Factors for Insulin Resistance: * Steroids: Dexamethasone 8mg IV x1 07/09 in OR * Recent Surgery: s/p right partial nephrectomy * Diet: Type 2 DM Assessment & Plan ASSESSMENT: 07/11/17 * Blood sugars at goal, no changes in current insulin regimen. * Pt seen by urology today for left flank pain. 07/09/17 * 72 year old female type 2 diabetic s/p right partial nephrectomy. BSG prior to surgery 87mg/dl * Patient is currently receiving an average of 59 units of insulin per day at home * 25 units of basal insulin * 34 units of prandial/correctional insulin * I will start patient on same dose of basal insulin and CR and CF slightly tighter d/t IV steroids, but not too tight as patient is only on a clear liquid diet, and check BSG overnight for additional doses of Novolog of steroid induced hyperglycemia. * ADA & AACE recommend a goal blood sugar range 140-180 mg/dl for the majority of critically ill & non-critically ill patients. However, more stringent targets may be selected in individual cases. Will utilize more stringent goal of 110-140mg/dl based on patient age & comorbidities. Additionally, tighter glycemic control is warranted to facilitate wound/infection healing. PLAN FOR INPATIENT GLYCEMIC CONTROL: * Basal insulin with LANTUS 25 units SQ HS * Correctional Insulin with NOVOLOG per scale ACHS or Q6hrs while NPO * Goal Range: Low 110 mg/dL - High 140 mg/dL * Correction Factor: 18 mg/dL/unit * Nutritional / Prandial insulin per carb ratio of 1 unit per 6 grams CHO consumed Discharge recommendations: * Continue home regimen and Follow-up with DM provider * Please note that the plan above was derived based on current level of insulin resistance and hospital stress. These recommendations are appropriate for inpatient admission only. Plan of care upon discharge will need to be reassessed to avoid potential outpatient hypo/hyperglycemia. Thank you.
[2017-07-11] MEDS ORDERED: PHARMACY GLYCEMIC MGMT CONSULT PRN (13:30)
[2017-07-11 15:15] VITALS: O2SAT 94
--- NOTE | 2017-07-11 15:16 | Medical Consult ---
Consultation Date of Consultation: Jul 11, 2017. 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 Pt reports mild edema at this time and notes infiltration of peripheral IV. Accuchecks have been stable in the postoperative course and pharmacy has been consulted for glycemic management. Pt reports no fever, chills, sob, chest pain, N/V/D. Social History Smoking Status: Never Smoker Drug Use: none Allergies Coded Allergies: Adhesives (Verified Allergy, Unknown, RASH, BLISTERS. PAPER TAKE IS OK, ) Mupirocin (Verified Allergy, Unknown, OINTMENT CAUSED RASH, HIVES AND ITCHING, 07/09/17) Uncoded Allergies: YORDY CREAM (Allergy, Unknown, n/v, 06/23/17) Current Inpatient Medications Current Inpatient Medications Medications (Trade) Dose Ordered Sig/Maia Route Start Time Stop Time Status Last Admin Dose Admin Acetaminophen (Tylenol Tab) 650 mg Q6H PRN PO 07/09/17 14:30 08/08/17 14:29 Acetaminophen/ Hydrocodone Bitart ([place] 5/325 Tab) 1 tab Q4H PRN PO 07/09/17 14:30 07/23/17 14:29 07/11/17 00:10 1 TAB Hydromorphone HCl (Dilaudid Inj) 0.5 mg Q3H PRN IV 07/09/17 14:30 07/23/17 14:29 Oxycodone/ Acetaminophen (Percocet 5-325mg Tab) 2 tab Q4H PRN PO 07/09/17 14:30 07/23/17 14:29 07/11/17 08:19 2 TAB Hydromorphone HCl (Dilaudid Inj) 1 mg Q3H PRN IV 07/09/17 14:30 07/23/17 14:29 07/09/17 17:28 1 MG Ondansetron HCl (Zofran Inj) 4 mg Q6H PRN IV 07/09/17 14:30 08/08/17 14:29 07/10/17 04:48 4 MG Docusate Sodium (coLACE CAP) 100 mg BID PO 07/09/17 21:00 08/08/17 20:59 07/11/17 08:21 100 MG Carvedilol (Coreg Tab) 12.5 mg BID PO 07/09/17 21:00 08/08/17 20:59 07/11/17 08:22 12.5 MG Cyclobenzaprine HCl (Flexeril Tab) 10 mg DAILY PRN PO 07/09/17 14:30 08/08/17 14:29 07/11/17 10:15 10 MG Enalapril Maleate (Vasotec Tab) 5 mg QAM PO 07/10/17 09:00 08/09/17 08:59 07/11/17 08:22 5 MG Furosemide (Lasix Tab) 20 mg QAM PO 07/10/17 09:00 08/09/17 08:59 07/11/17 09:15 20 MG Gabapentin (Neurontin Cap) 300 mg BID PO 07/09/17 21:00 08/08/17 20:59 07/11/17 08:21 300 MG Lorazepam (Ativan Tab) 0.5 mg HS PO 07/09/17 21:00 08/08/17 20:59 07/10/17 20:55 0.5 MG Mirabegron (Myrbetriq Er) 50 mg QAM PO 07/10/17 09:00 08/09/17 08:59 07/11/17 08:21 50 MG Pravastatin Sodium (Pravachol Tab) 40 mg HS PO 07/09/17 21:00 08/08/17 20:59 07/10/17 20:59 40 MG Glucose (Glucose 40% Gel) 15-30 GRAMS 15 GRAMS... UD PRN PO 07/09/17 14:45 08/08/17 14:44 Glucose (Glucose Chew Tab) 4-8 Tablets 4 Tabl... UD PRN PO 07/09/17 14:45 08/08/17 14:44 Dextrose (Dextrose 50% 50ML Syringe) 25-50ML OF 50% DW IV FOR... UD PRN IV 07/09/17 14:45 08/08/17 14:44 Glucagon (Glucagon Inj) 1 mg UD PRN SQ 07/09/17 14:45 08/08/17 14:44 Miscellaneous Information (Consult Glycemic Management Pharmacy) 1 ea UD N/A 07/09/17 14:52 08/08/17 14:51 Insulin Glargine (Lantus Solostar Pen) 25 units HS PA 07/09/17 21:00 08/08/17 20:59 07/10/17 21:05 25 UNITS Insulin Aspart (novoLOG ASPART) SLIDING SCALE ACHS SC 07/09/17 16:00 08/08/17 15:59 07/11/17 13:06 11 UNITS Famotidine (Pepcid Tab) 20 mg BID PO 07/10/17 21:00 08/09/17 20:59 07/11/17 08:21 20 MG Review of Systems Constitutional: No fever, No chills, No sweats, No weakness Respiratory: No cough, No sputum, No wheezing, No shortness of breath, No dyspnea on exertion Cardiovascular: No chest pain, No orthopnea, No PND, No edema Abdomen: No pain, No nausea, No vomiting, No diarrhea Musculoskeletal: No joint pain, No muscle pain, No swelling, No calf pain Genitourinary - Female: No dysuria, No urinary frequency, No urinary urgency, No urinary incontinence Neurologic: No memory loss, No paralysis, No weakness, No numbness/tingling Psychiatric: No depression symptoms, No anhedonism, No anxiety, No insomnia Endocrine: No fatigue, No excessive thirst Integumentary: No rash, No itch Physical Exam Date Time Temp Pulse Resp B/P (MAP) Pulse Ox O2 Delivery O2 Flow Rate FiO2 07/11/17 08:00 Room Air 07/11/17 07:15 36.5 85 16 121/69 (86) 94 Room Air 07/10/17 23:42 Room Air 07/10/17 23:30 36.6 95 16 100/59 (73) 94 Room Air 07/10/17 20:52 88 114/58 (76) 07/10/17 16:00 97 Room Air 07/10/17 15:09 36.5 86 20 126/71 (89) 97 Room Air General Appearance: WD/WN, no apparent distress Head: normocephalic, atraumatic Eyes: normal inspection, PERRL, EOMI, sclerae normal Neck: supple, no adenopathy, thyroid normal, no JVD Respiratory/Chest: chest non-tender, lungs clear, normal breath sounds, no respiratory distress Cardiovascular: regular rate, rhythm, no edema, no gallop, no JVD Abdomen/GI: normal bowel sounds, non tender, soft, no organomegaly Back: normal inspection, no CVA tenderness, no muscle spasm Neurologic/Psych: no motor/sensory deficits, alert, normal mood/affect, oriented x 3 Skin: normal color, warm/dry, no rash Laboratory Results Last 24 Hours Test 07/10/17 16:58 07/10/17 20:12 07/11/17 07:17 07/11/17 08:04 Bedside Glucose 169 mg/dl 181 mg/dl 148 mg/dl White Blood Count 11.12 K/uL Red Blood Count 3.44 M/uL Hemoglobin 9.8 g/dL Hematocrit 31.0 % Mean Corpuscular Volume 90.1 fL Mean Corpuscular Hemoglobin 28.5 pg Mean Corpuscular Hemoglobin Concent 31.6 g/dl Platelet Count 300 K/uL Mean Platelet Volume 9.9 fL Neutrophils (%) (Auto) 68.9 % Lymphocytes (%) (Auto) 18.9 % Monocytes (%) (Auto) 10.8 % Eosinophils (%) (Auto) 1.0 % Basophils (%) (Auto) 0.2 % Neutrophils # (Auto) 7.67 K/uL Lymphocytes # (Auto) 2.10 K/uL Monocytes # (Auto) 1.20 K/uL Eosinophils # (Auto) 0.11 K/uL Basophils # (Auto) 0.02 K/uL RDW Standard Deviation 45.0 fL RDW Coefficient of Variation 13.7 % Immature Granulocyte % (Auto) 0.2 % Immature Granulocyte # (Auto) 0.02 K/uL Sodium Level 140 mmol/L Potassium Level 4.1 mmol/L Chloride Level 106 mmol/L Carbon Dioxide Level 27 mmol/L Anion Gap 7.0 mmol/L Blood Urea Nitrogen 24 mg/dl Creatinine 1.90 mg/dl Est Creatinine Clear Calc Drug Dose 36.7 ml/min Estimated GFR () 30.2 Estimated GFR (Non- 26.1 BUN/Creatinine Ratio 12.6 Random Glucose 141 mg/dl Calcium Level 9.4 mg/dl Assessment & Plan Pt is a 72 yo female who was admitted for partial nephrectomy for suspicious 3 cm mass and consulted to our services for diabetes control and hypervolemia management Renal mass s/p partial nephrectomy POD #2, urology primary team, pathology pending Please discontinue all IVF at this time. Cont lasix as ordered No acute blood loss anemia noted, PT/OT, dispo per primary team IDDM glycemic control consult in place, can continue on home regimen on DC, controlled at this time, no further changes indicated
[2017-07-11 15:21] VITALS: BP 119/70; PULSE 86; TEMP 36.4; O2SAT 95
[2017-07-11] MEDS: INSULIN GLARGINE SOLOSTAR 100 UNITS/ML 3 ML PEN SC SCH (20:51)
[2017-07-11] MEDS: LORAZEPAM 0.5 MG TAB PO SCH (21:17)
[2017-07-11] MEDS: PRAVASTATIN SOD 20 MG TAB PO SCH (21:19)
[2017-07-11 22:57] VITALS: BP 97/61; PULSE 96; TEMP 36.7; O2SAT 93
[2017-07-11 23:01] VITALS: BP 146/84; PULSE 61; TEMP 36.6; O2SAT 99
[2017-07-12 01:21] VITALS: BP 158/79; PULSE 101
[2017-07-12] MEDS: HYDROmorphone INJ 1 MG/ML SYR IV PRN ×2 (01:45→04:00)
--- NOTE | 2017-07-12 06:47 | DIAGNOSTIC IMAGING REPORT ---
CHEST ONE VIEW PORTABLE CLINICAL HISTORY: 72 years-old Female presenting with chest pain. TECHNIQUE: Portable upright AP view of the chest was obtained. COMPARISON: None. FINDINGS: Image quality is degraded by body habitus and portable technique. Cardiac silhouette mildly enlarged. Mildly prominent pulmonary vasculature. Lungs and pleural spaces clear. Osseous structures normal. Upper abdomen normal. IMPRESSION: 1. Mild cardiomegaly with mildly prominent pulmonary vasculature, which could suggest volume overload. No lex pulmonary edema. Electronically signed by: New Henley M.D. 07/12/2017 6:45 AM Dictated Date/Time: 07/12/2017 6:44 AM
[2017-07-12 07:00] VITALS: BP 116/74; PULSE 86; TEMP 36.4; O2SAT 94
[2017-07-12 07:26] LABS: BUN/CREATININE RATIO 15.9 (10-20); CALCIUM 9.1 mg/dl (8.5-10.1); CREATININE 1.6 mg/dl (0.60-1.20); POTASSIUM 4.7 mmol/L (3.5-5.1)
[2017-07-12] MEDS: MIRABEGRON ER 25 MG TAB PO SCH (09:00)
[2017-07-12] MEDS: GABAPENTIN 300 MG CAP PO SCH (09:01)
[2017-07-12] MEDS: FUROSEMIDE 20 MG TAB PO SCH (09:01)
[2017-07-12] MEDS: ENALAPRIL MALEATE 5 MG TAB PO SCH (09:01)
[2017-07-12] MEDS: CARVEDILOL 12.5 MG TAB PO SCH (09:01)
[2017-07-12] MEDS: DOCUSATE SODIUM 100 MG CAP PO SCH (09:01)
[2017-07-12] MEDS: FAMOTIDINE 20 MG TAB PO SCH (09:01)
[2017-07-12] MEDS: INSULIN ASPART 100 UNITS/ML 3 ML PEN SC SCH ×2 (09:06→13:02)
[2017-07-12] MEDS: HYDROCODONE/ACETAMOPHEN 5/325MG TAB PO PRN (09:07)
[2017-07-12 11:22] VITALS: BP 116/74; PULSE 86; TEMP 36.4; O2SAT 94
--- NOTE | 2017-07-12 11:28 | Progress Note ---
Subjective Date of Service: Jul 12, 2017. Subjective Pt evaluation today including: conversation w/ patient, physical exam, chart review, lab review pt with gas pain overnite but resolved w passing of voluminous flatus pt feels better and has ambulated in the [place] Objective Vital Signs Date Time Temp Pulse Resp B/P (MAP) Pulse Ox O2 Delivery O2 Flow Rate FiO2 07/12/17 07:20 Room Air 07/12/17 07:00 36.4 86 16 116/74 (88) 94 Room Air 07/12/17 01:21 101 158/79 (105) 07/11/17 23:30 Room Air 07/11/17 22:57 36.7 96 16 97/61 (73) 93 Room Air 07/11/17 15:21 36.4 86 18 119/70 (86) 95 Room Air 07/11/17 15:15 94 Room Air Physical Exam Abdomen: non tender, soft Extremities: + calf tenderness (no calf tenderness) Comments: drain removed wounds intact w/o erythema Laboratory Results Last 24 Hours Test 07/11/17 11:46 07/11/17 16:57 07/11/17 20:36 07/12/17 01:43 Bedside Glucose 124 mg/dl 195 mg/dl 190 mg/dl Troponin I < 0.015 ng/ml Test 07/12/17 06:20 07/12/17 08:10 Sodium Level 141 mmol/L Potassium Level 4.7 mmol/L Chloride Level 107 mmol/L Carbon Dioxide Level 30 mmol/L Anion Gap 4.0 mmol/L Blood Urea Nitrogen 25 mg/dl Creatinine 1.60 mg/dl Est Creatinine Clear Calc Drug Dose 43.6 ml/min Estimated GFR () 37.2 Estimated GFR (Non- 32.1 BUN/Creatinine Ratio 15.9 Random Glucose 118 mg/dl Calcium Level 9.1 mg/dl Bedside Glucose 111 mg/dl Assessment and Plan Creatinine 1.6 pt ready to go home Discharge planning: home
--- NOTE | 2017-07-23 16:12 | Discharge Summary ---
Discharge Summary Date of Service Jul 23, 2017. Discharge Summary Date of admission: 07/09/2017 Date of discharge: 07/12/2017. Admitting attending: Dr. Artur Ham Admitting diagnosis: Right renal mass Discharge diagnosis: Right renal cell carcinoma, clear cell type Complications: None Brief history: Mrs. Alonso is a 72-year-old female found to have a right renal mass on abdominal imaging. This is felt to be suspicious for renal cell carcinoma. After discussion of management possibilities as an outpatient she is decided upon a robotic partial nephrectomy to manage her disease. Please see H&P for further details. She is being admitted for this purpose. Hospital course: Patient was admitted after an uncomplicated robotic partial nephrectomy as planned. Please see operative report for further details. Patient's diet and activity was advanced but she was noted to have some slow GI function and back pain likely due to positioning and not unusual for her from a historical perspective. Creatinine stabilized at approximately 1.6 and activity was slowly advanced. By postoperative day #3 patient was cannulated in the hallways, passing flatus, tolerating a regular diet with stable lab work. She was comfortable on oral pain medication. She was felt to be able for discharge home at this time. Please see progress notes for further details. Discharge instructions: Please see discharge instruction sheet for further details. Prescription for pain medication and stool softener was provided. Postoperative appointments are confirmed. Patient is instructed to contact our service should she note any fevers, chills, nausea, vomiting or other significant difficulties in the postoperative period
== END 2017-07-12 13:15 | disposition home or self-care (01) | DRG 687 ==
LOC: C.ACU 07:28 → C.MSN 10:30 → ENRESERV 15:32
PROVIDERS: ADMIT Urology; ATTEND Urology
PROC: 0TB04ZX Excision of Right Kidney, Percutaneous Endoscopic Approach, Diagnostic (ICD-10-PCS; principal; 2017-07-09 09:30)
PROC: 8E0W4CZ Robotic Assisted Procedure of Trunk Region, Percutaneous Endoscopic Approach (ICD-10-PCS; principal; 2017-07-09 09:30)
DX: C64.1 Malignant neoplasm of right kidney, except renal pelvis (principal); L12.0 Bullous pemphigoid; Z68.42 Body mass index [BMI] 45.0-49.9, adult; N39.46 Mixed incontinence; E11.42 Type 2 diabetes mellitus with diabetic polyneuropathy; I10 Essential (primary) hypertension; E78.5 Hyperlipidemia, unspecified; F41.9 Anxiety disorder, unspecified; E66.01 Morbid (severe) obesity due to excess calories; Z85.828 Personal history of other malignant neoplasm of skin; Z78.0 Asymptomatic menopausal state; Z90.710 Acquired absence of both cervix and uterus; Z79.2 Long term (current) use of antibiotics; Z79.4 Long term (current) use of insulin; Z79.52 Long term (current) use of systemic steroids; Z79.899 Other long term (current) drug therapy; Z80.1 Family history of malignant neoplasm of trachea, bronchus and lung; Z80.8 Family history of malignant neoplasm of other organs or systems; Z83.3 Family history of diabetes mellitus; Z82.49 Family history of ischemic heart disease and other diseases of the circulatory system

== ENCOUNTER 2017-07-17 13:04 | Emergency (ER) | payer OTHER ==
[~2017-07-17] VITALS: Ht 160 cm; Wt 135.0 kg
[~2017-07-17 13:04] MED LIST changes: -CEFAZOLIN 3000 MG/65 ML D5W IV SCH; +CLC100 PO; -LACTATED RINGER'S 1000ML 1,000 ML IV SCH; +OXYC-57 PO
[2017-07-17 13:06] VITALS: TEMP 36.8; Ht 160 cm; Wt 135.0 kg
[2017-07-17] MEDS ORDERED: ONDANSETRON INJ 2 MG/ML 2 ML VIAL IV STA (13:30)
[2017-07-17] MEDS ORDERED: SODIUM CHLORIDE 0.9% 500ML 500 ML IV SCH (13:30)
--- NOTE | 2017-07-17 13:54 | EMERGENCY ROOM VISIT NOTE ---
History First contact with patient: 13:11 Chief Complaint: FLANK PAIN Stated Complaint: SEVERE PAIN RT SIDE/BACK History of Present Illness This patient is a pleasant 72-year-old female that presents to the emergency department with bilateral flank pain for the last few days. The patient underwent a right partial nephrectomy 6 days ago today. The patient was discharged 5 days ago. She initially did fairly well except for constipation. She did finally have multiple bowel movements last night. She denies any fever or chills. She describes the pain in her flank as a grabbing sensation. She has been taking oxycodone with no relief. She is still making urine. She denies any hematuria. No fever or chills. She denies any chest pain or difficulty breathing. She denies any nausea. She also notes some swelling in both of her legs since the procedure. Review of Systems 10 system review performed and negative unless noted in HPI or below Past Medical/Surgical History Medical Problems: (1) Renal mass, right Diabetes, hypertension Family History Diabetes, cancer Social History Smoking Status: Never Smoker Drug Use: none Housing Status: lives alone Current/Historical Medications Scheduled Carvedilol (Coreg), 12.5 MG PO BID Docusate Sodium (Docusate Sodium), 100 MG PO BID Enalapril (Vasotec), 5 MG PO QAM Furosemide (Lasix), 20 MG PO QAM Gabapentin (Neurontin), 300 MG PO BID Insulin Degludec (Tresiba Flextouch), 24 UNITS SQ HS Insulin Human Lispro (Humalog Kwikpen), 12 UNITS PO LUNCH Insulin Lispro (Human) (Humalog Kwikpen), 7 UNITS SQ QAM Insulin Lispro (Human) (Humalog Kwikpen), 15 UNITS SQ SUPPER Lorazepam (Ativan), 0.5 MG PO HS Mirabegron (Myrbetriq Er), 50 MG PO QAM Pravastatin (Pravachol ), 40 MG PO HS Scheduled PRN Cyclobenzaprine Hcl (Flexeril), 10 MG PO DAILY PRN for BACK SPASM Oxycodone/Acetaminophen 5MG/325MG (Percocet 5MG/325MG), 1-2 TAB PO Q4H PRN for severe pain (pain scale 7-10) Oxycodone/Acetaminophen 5MG/325MG (Percocet 5MG/325MG), 1-2 TABS PO Q4H PRN for Pain Physical Exam Vital Signs Date Time Temp Pulse Resp B/P (MAP) Pulse Ox O2 Delivery O2 Flow Rate FiO2 07/17/17 14:41 76 18 155/62 96 Room Air 07/17/17 13:06 36.8 87 18 167/65 97 Room Air Physical Exam VITALS: Vitals are noted on the nurse's note and reviewed by myself. Vital signs stable. GENERAL: 72-year-old female, in moderate discomfort,, SKIN: Approximately 3 cm incision the right lower quadrant that is healing well. There is also a smaller incision that is draining clear fluid. No surrounding erythema noted.. HEAD: Normocephalic atraumatic. MOUTH: Mucous membranes somewhat dry. NECK: . No JVD. HEART: Regular rate and rhythm systolic murmur at the right upper sternal border. No gallops or rubs. LUNGS: Clear to auscultation bilaterally without wheezes, rales or rhonchi. No accessory muscle use. ABDOMEN: Positive bowel sounds x 4.Soft, nontender, without organomegaly. No guarding or rebound tenderness. CVA tenderness noted bilaterally. MUSCULOSKELETAL: +1 nonpitting edema in the lower extremity bilaterally. No erythema, tenderness or warmth appreciated. Strength 5/5 throughout. NEURO: Patient was alert and oriented to person place and time. Normal sensation to touch. No focal neurological deficits. Medical Decision & Procedures ER Provider Diagnostic Interpretation: Patient Name: MARISSA MCELROY Unit Number: [id number] Dictated: 07/17/[id number] Transcribed: 07/17/17 1500 ARG Printed Date/Time: [~ rep prt dt]/[~ rep prt tm] [~ rep ct labl] - [~ rep ct ivnm] [facility] [place] [address] Dictated: 07/17/17 1500 Transcribed: 07/17/17 1500 ARG Printed Date/Time: [~ rep prt dt]/[~ rep prt tm] [~ rep ct labl] - [~ rep ct ivnm] CT SCAN OF THE ABDOMEN AND PELVIS WITHOUT CONTRAST CLINICAL HISTORY: Flank pain, most pronounced in the left lower quadrant COMPARISON STUDY: MRI the abdomen dated 05/28/2017 TECHNIQUE: CT scan of the abdomen and pelvis was performed from the lung bases to the proximal femurs. Images are reviewed in the axial, sagittal, and coronal planes. IV contrast was not administered for this examination. A dose lowering technique was utilized adhering to the principles of ALARA. CT DOSE: 1938.52 mGy.cm FINDINGS: Lower chest: There are small pleural effusions with bilateral lower lobe atelectasis/consolidation. Liver: The unenhanced liver is normal in size, contour, and attenuation. There is no intrahepatic biliary ductal dilatation. The 12 mm T2 bright lesion described on the recent MRI study is not visible on this noncontrast CT scan. Gallbladder: Unremarkable. Spleen: Normal in size and attenuation. Pancreas: Unremarkable. Adrenal glands: Unremarkable. Kidneys: There were presumed postsurgical changes involving the right kidney. There is infiltration of the right perinephric fat. There is no hydronephrosis. No renal, ureteral, or bladder calculi are visualized. Bowel: There are no transition zones to indicate bowel obstruction. There is colonic diverticulosis. There are no acute peridiverticular inflammatory changes. Within the anterior midline there is evidence for a colonic anastomosis. There are no findings to indicate acute appendicitis. Peritoneum: There is no intraperitoneal free air or abdominal ascites. Vasculature: The abdominal aorta is normal in course and caliber. Adenopathy: None. Pelvic viscera: There is air within the bladder, likely iatrogenic. The patient is status post a prior hysterectomy. Skeletal structures: There is air within the soft tissues of the right lateral abdominal wall, likely secondary to recent surgery. There is moderate anterior soft tissue edema. There are postsurgical changes involve the spine IMPRESSION: 1. Presumed postsurgical changes involving the right kidney 2. No renal, ureteral, or lateral calculi identified 3. Air within the bladder, likely iatrogenic 4. Bilateral pleural effusions and bilateral lower lobe atelectasis/consolidation 5. No evidence of bowel obstruction. No evidence of free air 6. Diverticulosis. No evidence of acute diverticulitis 7. No evidence of acute appendicitis Electronically signed by: Maged Marin M.D. 07/17/2017 3:09 PM Dictated Date/Time: 07/17/2017 3:00 PM The status of this report is Signed. Draft = Not yet reviewed or approved by Radiologist. Signed = Reviewed and approved by Radiologist. <AttendingPhy></AttendingPhy> <FamilyPhy>Andrews,Glen M. D.O.</FamilyPhy> < PrimaryPhy>Glen Sparrow Joel D.O.</PrimaryPhy> <UnitNumber>[id number]</UnitNumber> <VisitNumber>[id number]</VisitNumber> <PatientName>MARISSA MCELROY</PatientName > <DateOfBirth>1945</DateOfBirth> <Location>C.EDB</Location> <ServiceDate> 07/17/17</ServiceDate> <MNE>ESINDI</MNE> <OrderingPhy>Montse Farris PA-C</ OrderingPhy> <OrderingPhyMNE>f rep ord dr wolff</OrderingPhyMNE> <DictatingPhyMNE> f rep dict dr wolff</DictatingPhyMNE> <CCListMNE>f rep ct mariella</CCListMNE> < AdmittingPhyMNE>f pt admit dr wolff</AdmittingPhyMNE> <AttendingPhyMNE>f pt attend dr wolff</AttendingPhyMNE> <ConsultingPhyMNE>f pt consult dr wolff</ConsultingPhyMNE> <FamilyPhyMNE>f pt fam dr wolff</FamilyPhyMNE> <OtherPhyMNE>f pt other dr wolff</OtherPhyMNE> < PrimaryPhyMNE>f pt prim care dr wolff</PrimaryPhyMNE> <ReferringPhyMNE>f pt referring dr wolff</ReferringPhyMNE> CHEST ONE VIEW PORTABLE CLINICAL HISTORY: Lower extremity swelling. COMPARISON STUDY: Chest radiograph June 26, 2017. FINDINGS: Lung volumes are normal. There is no pneumothorax. A small left pleural effusion is noted. There is a trace right pleural effusion. Mild cardiomegaly is noted. There is no evidence of pulmonary edema. There is no consolidation to suggest pneumonia. Mild left basilar opacity favors atelectasis. IMPRESSION: 1. Small left and trace right pleural effusions. 2. Mild left basilar opacity suggestive of atelectasis. 3. Mild cardiomegaly without evidence of pulmonary edema. Electronically signed by: Dao Ramirez M.D. 07/17/2017 2:12 PM Dictated Date/Time: 07/17/2017 2:11 PM The status of this report is Signed. Draft = Not yet reviewed or approved by Radiologist. Signed = Reviewed and approved by Radiologist. <AttendingPhy></AttendingPhy> <FamilyPhy>Glen Sparrow D.O.</FamilyPhy> < PrimaryPhy>Glen Sparrow D.O.</PrimaryPhy> <UnitNumber>[id number]</UnitNumber> <VisitNumber>[id number]</VisitNumber> <PatientName>MARISSA MCELROY Davonte</PatientName > <DateOfBirth>1945</DateOfBirth> <Location>C.EDB</Location> <ServiceDate> 07/17/17</ServiceDate> <MNE>ESINDI</MNE> <OrderingPhy>Montse Farris PA-C</ OrderingPhy> <OrderingPhyMNE>f rep ord dr wolff</OrderingPhyMNE> <DictatingPhyMNE> f rep dict dr wolff</DictatingPhyMNE> <CCListMNE>f rep ct mne</CCListMNE> < AdmittingPhyMNE>f pt admit dr wolff</AdmittingPhyMNE> <AttendingPhyMNE>f pt attend dr wolff</AttendingPhyMNE> <ConsultingPhyMNE>f pt consult dr wolff</ConsultingPhyMNE> <FamilyPhyMNE>f pt fam dr wolff</FamilyPhyMNE> <OtherPhyMNE>f pt other dr wolff</OtherPhyMNE> < PrimaryPhyMNE>f pt prim care dr wolff</PrimaryPhyMNE> <ReferringPhyMNE>f pt referring dr wolff</ReferringPhyMNE> Laboratory Results 07/17/17 14:20 Red Blood Count 3.21, Mean Corpuscular Volume 87.9, Mean Corpuscular Hemoglobin 29.6, Mean Corpuscular Hemoglobin Concent 33.7, Mean Platelet Volume 9.6, Neutrophils (%) (Auto) 52.4, Lymphocytes (%) (Auto) 32.9, Monocytes (%) (Auto) 9.4, Eosinophils (%) (Auto) 4.6, Basophils (%) (Auto) 0.5, Neutrophils # (Auto) 4.55, Lymphocytes # (Auto) 2.86, Monocytes # (Auto) 0.82, Eosinophils # (Auto) 0.40, Basophils # (Auto) 0.04 07/17/17 14:20 Test 07/17/17 14:20 07/17/17 14:50 White Blood Count 8.69 K/uL (4.8-10.8) Red Blood Count 3.21 M/uL (4.2-5.4) Hemoglobin 9.5 g/dL (12.0-16.0) Hematocrit 28.2 % (37-47) Mean Corpuscular Volume 87.9 fL (80-100) Mean Corpuscular Hemoglobin 29.6 pg (25-34) Mean Corpuscular Hemoglobin Concent 33.7 g/dl (32-36) Platelet Count 335 K/uL (130-400) Mean Platelet Volume 9.6 fL (7.4-10.4) Neutrophils (%) (Auto) 52.4 % Lymphocytes (%) (Auto) 32.9 % Monocytes (%) (Auto) 9.4 % Eosinophils (%) (Auto) 4.6 % Basophils (%) (Auto) 0.5 % Neutrophils # (Auto) 4.55 K/uL (1.4-6.5) Lymphocytes # (Auto) 2.86 K/uL (1.2-3.4) Monocytes # (Auto) 0.82 K/uL (0.11-0.59) Eosinophils # (Auto) 0.40 K/uL (0-0.5) Basophils # (Auto) 0.04 K/uL (0-0.2) RDW Standard Deviation 43.8 fL (36.4-46.3) RDW Coefficient of Variation 13.5 % (11.5-14.5) Immature Granulocyte % (Auto) 0.2 % Immature Granulocyte # (Auto) 0.02 K/uL (0.00-0.02) Anion Gap 6.0 mmol/L (3-11) Est Creatinine Clear Calc Drug Dose 63.3 ml/min Estimated GFR () 58.5 Estimated GFR (Non- 50.5 BUN/Creatinine Ratio 15.6 (10-20) Calcium Level 9.4 mg/dl (8.5-10.1) Total Bilirubin 0.3 mg/dl (0.2-1) Aspartate Amino Transf (AST/SGOT) 13 U/L (15-37) Alanine Aminotransferase (ALT/SGPT) 15 U/L (12-78) Alkaline Phosphatase 107 U/L (45-117) Total Protein 6.4 gm/dl (6.4-8.2) Albumin 2.8 gm/dl (3.4-5.0) Globulin 3.6 gm/dl (2.5-4.0) Albumin/Globulin Ratio 0.8 (0.9-2) Urine Color YELLOW Urine Appearance CLEAR (CLEAR) Urine pH 7.0 (4.5-7.5) Urine Specific [place] 1.011 (1.000-1.030) Urine Protein NEG (NEG) Urine Glucose (UA) NEG (NEG) Urine Ketones NEG (NEG) Urine Occult Blood 1+ (NEG) Urine Nitrite NEG (NEG) Urine Bilirubin NEG (NEG) Urine Urobilinogen NEG (NEG) Urine Leukocyte Esterase SMALL (NEG) Urine WBC (Auto) 1-5 /hpf (0-5) Urine RBC (Auto) 0-4 /hpf (0-4) Urine Hyaline Casts (Auto) 0 /lpf (0-5) Urine Epithelial Cells (Auto) 10-20 /lpf (0-5) Urine Bacteria (Auto) NEG (NEG) Medications Administered Medications (Trade) Dose Ordered Sig/Maia Route Start Time Stop Time Status Last Admin Dose Admin Sodium Chloride 500 ml @ 0 mls/hr Q0M IV 07/17/17 13:30 08/16/17 13:29 07/17/17 14:39 0 MLS/HR Morphine Sulfate (MoRPHine SULFATE INJ) 4 mg Q1H PRN IV 07/17/17 13:30 07/31/17 13:29 07/17/17 15:49 4 MG Ondansetron HCl (Zofran Inj) 4 mg NOW STAT IV 07/17/17 13:30 07/17/17 13:35 DC 07/17/17 14:38 4 MG ED Course Patient was seen and examined Vital signs including blood pressure were reviewed medications list was verified with patient Labs were obtained, and a saline lock was established The patient was given morphine 4 mg IV and Zofran 4 mg IV. She was hydrated with 500 mL normal saline Imaging was performed and reviewed The patient was reassessed. She was given 1 additional dose of morphine. We discussed the results of her workup. I reviewed discharge instructions the patient. They voiced understanding and had no further questions. Medical Decision Differential diagnosis: Postoperative pain, constipation, hematoma, abscess This patient is a 72-year-old female that presents emergency department with complaints of bilateral flank pain after having a partial right nephrectomy 8 days ago. There is no leukocytosis. The patient's renal function is intact. She is afebrile. A CT of the abdomen and pelvis was performed. No signs of hematoma or abscess. No acute findings were noted besides postoperative changes. The patient had good pain relief in the emergency department. It appears that she could be using an old prescription of hydrocodone for pain. It is on known how old this prescription is. The patient was given a prescription for Percocet. She has a follow-up appointment already scheduled with her urologist. She was instructed on how to take the Percocet appropriately. She was also cautioned on taking this with her benzodiazepine. I believe the patient is stable to be discharged home. She and her sister agree to return to the emergency department in the next several days if she has any new or worsening symptoms. This chart was completed in part utilizing [employer] Speech Voice Recognition software. Attempts were made to minimize the grammatical errors, random word insertions, pronoun errors and incomplete sentences. Any formal questions or concerns about the content, text or information contained within the body of this dictation should be directly addressed to the provider for clarification. Medication Reconcilliation Current Medication List: was personally reviewed by me Blood Pressure Screening Patient's blood pressure: Elevated blood pressure Blood pressure disposition: Elevated BP felt to be situational Impression Primary Impression: Flank pain Departure Information Dispostion Home / Self-Care Condition GOOD Prescriptions Oxycodone/Acetaminophen 5MG/325MG (PERCOCET 5MG/325MG) Tab 1-2 TABS PO Q4H Y for Pain, #20 TAB For Initial Treatment Prov: Montse Farris PA-C 07/17/17 Referrals No Doctor, Assigned (PCP) Patient Instructions My [facility] Additional Instructions You were evaluated in the emergency department with flank pain. This is likely stemming from your recent surgery. Please discard any old pain medications at home. Percocet : Take 1-2 pills every four hours for pain. Avoid alcohol, operating machinery or dangerous equipment, working on ladders or roofs, DRIVING, or situations where being under the influence may be dangerous. It is recommended to use an [id number] stool softener such as Colace, 100mg twice daily while taking this medication to avoid constipation. Please do not take this medication with your Ativan (lorazepam) as both of these medications are sedating. Please follow-up with your urologist as scheduled next week Please return to the emergency department with any new or worsening symptoms
--- NOTE | 2017-07-17 14:14 | DIAGNOSTIC IMAGING REPORT ---
CHEST ONE VIEW PORTABLE CLINICAL HISTORY: Lower extremity swelling. COMPARISON STUDY: Chest radiograph June 26, 2017. FINDINGS: Lung volumes are normal. There is no pneumothorax. A small left pleural effusion is noted. There is a trace right pleural effusion. Mild cardiomegaly is noted. There is no evidence of pulmonary edema. There is no consolidation to suggest pneumonia. Mild left basilar opacity favors atelectasis. IMPRESSION: 1. Small left and trace right pleural effusions. 2. Mild left basilar opacity suggestive of atelectasis. 3. Mild cardiomegaly without evidence of pulmonary edema. Electronically signed by: Dao Ramirez M.D. 07/17/2017 2:12 PM Dictated Date/Time: 07/17/2017 2:11 PM
[2017-07-17 14:32] LABS: BASO % 0.5 %; BASO ABS # 0.04 K/uL (0-0.2); COMPLETE YES; EOS % 4.6 %; HEMATOCRIT 28.2 % (37-47); IG% 0.2 %; LYMPH % 32.9 %; LYMPH ABS # 2.86 K/uL (1.2-3.4); MEAN CELL VOLUME 87.9 fL (80-100); MEAN CORPUSCULAR HEMOGLOBIN 29.6 pg (25-34); MEAN CORPUSCULAR HGB CONC 33.7 g/dl (32-36); MEAN PLATELET VOLUME 9.6 fL (7.4-10.4); MONO % 9.4 %; NEUT % 52.4 %; PLATELET COUNT 335 K/uL (130-400); RED BLOOD COUNT 3.21 M/uL (4.2-5.4); WHITE BLOOD COUNT 8.69 K/uL (4.8-10.8)
[2017-07-17] MEDS: MoRPHine SULFATE 4 MG/ML 1 ML CARP\\VIAL IV PRN ×2 (14:39→15:49)
[2017-07-17 14:50] LABS: BUN/CREATININE RATIO 15.6 (10-20); CALCIUM 9.4 mg/dl (8.5-10.1); CREATININE 1.1 mg/dl (0.60-1.20); POTASSIUM 3.9 mmol/L (3.5-5.1)
[2017-07-17 14:52] LABS: ALB/GLOB RATIO 0.8 (0.9-2)
[2017-07-17 15:01] LABS: URINE APPEARANCE CLEAR (CLEAR); URINE BILIRUBIN NEG (NEG); URINE COLOR YELLOW; URINE NITRITE NEG (NEG); URINE SPECIFIC GRAVITY 1.011 (1.000-1.030); UROBILINOGEN NEG (NEG)
[2017-07-17 15:04] LABS: MANUAL MICROSCOPIC REQUIRED? NO; REVIEW REQ? NO
--- NOTE | 2017-07-17 15:10 | DIAGNOSTIC IMAGING REPORT ---
CT SCAN OF THE ABDOMEN AND PELVIS WITHOUT CONTRAST CLINICAL HISTORY: Flank pain, most pronounced in the left lower quadrant COMPARISON STUDY: MRI the abdomen dated 05/28/2017 TECHNIQUE: CT scan of the abdomen and pelvis was performed from the lung bases to the proximal femurs. Images are reviewed in the axial, sagittal, and coronal planes. IV contrast was not administered for this examination. A dose lowering technique was utilized adhering to the principles of ALARA. CT DOSE: 1938.52 mGy.cm FINDINGS: Lower chest: There are small pleural effusions with bilateral lower lobe atelectasis/consolidation. Liver: The unenhanced liver is normal in size, contour, and attenuation. There is no intrahepatic biliary ductal dilatation. The 12 mm T2 bright lesion described on the recent MRI study is not visible on this noncontrast CT scan. Gallbladder: Unremarkable. Spleen: Normal in size and attenuation. Pancreas: Unremarkable. Adrenal glands: Unremarkable. Kidneys: There were presumed postsurgical changes involving the right kidney. There is infiltration of the right perinephric fat. There is no hydronephrosis. No renal, ureteral, or bladder calculi are visualized. Bowel: There are no transition zones to indicate bowel obstruction. There is colonic diverticulosis. There are no acute peridiverticular inflammatory changes. Within the anterior midline there is evidence for a colonic anastomosis. There are no findings to indicate acute appendicitis. Peritoneum: There is no intraperitoneal free air or abdominal ascites. Vasculature: The abdominal aorta is normal in course and caliber. Adenopathy: None. Pelvic viscera: There is air within the bladder, likely iatrogenic. The patient is status post a prior hysterectomy. Skeletal structures: There is air within the soft tissues of the right lateral abdominal wall, likely secondary to recent surgery. There is moderate anterior soft tissue edema. There are postsurgical changes involve the spine IMPRESSION: 1. Presumed postsurgical changes involving the right kidney 2. No renal, ureteral, or lateral calculi identified 3. Air within the bladder, likely iatrogenic 4. Bilateral pleural effusions and bilateral lower lobe atelectasis/consolidation 5. No evidence of bowel obstruction. No evidence of free air 6. Diverticulosis. No evidence of acute diverticulitis 7. No evidence of acute appendicitis Electronically signed by: Maged Marin M.D. 07/17/2017 3:09 PM Dictated Date/Time: 07/17/2017 3:00 PM
--- NOTE | 2017-07-17 15:27 | EMERGENCY ROOM VISIT NOTE ---
ED Visit Note First contact with patient: 13:17 This Patient was discussed with the physician Medicare Nurse, Motnse Farris PA-C. The pertinent historical and physical exam findings were confirmed. I agree with the studies ordered and with the interpretations of these studies. I agree with the disposition and care plan.
[2017-07-17] MEDS ORDERED: OXYC-57 PO (15:48)
[2017-07-17 16:40] VITALS: BP 155/69; PULSE 76; O2SAT 95
== END 2017-07-17 16:42 | disposition home or self-care (01) ==
LOC: C.EDB 13:05
DX: R10.9 Unspecified abdominal pain (principal); E11.9 Type 2 diabetes mellitus without complications; I10 Essential (primary) hypertension; Z90.5 Acquired absence of kidney; Z83.3 Family history of diabetes mellitus; Z79.4 Long term (current) use of insulin

== ENCOUNTER → 2017-08-11 | Outpatient (CLI) | payer OTHER ==
[2017-08-11 12:38] LABS: ALT/SGPT 14 U/L (12-78); AST/SGOT 11 U/L (15-37); BLOOD UREA NITROGEN 20 mg/dl (7-18); BUN/CREATININE RATIO 16.4 (10-20); CALCIUM 9.6 mg/dl (8.5-10.1); CARBON DIOXIDE 25 mmol/L (21-32); CHLORIDE 110 mmol/L (98-107); CREATININE 1.24 mg/dl (0.60-1.20); GLUCOSE,FASTING 139 mg/dl (70-99); MAGNESIUM 1.7 mg/dl (1.8-2.4); POTASSIUM 4.3 mmol/L (3.5-5.1); SODIUM 142 mmol/L (136-145)
[2017-08-11 12:41] LABS: ALB/GLOB RATIO 0.8 (0.9-2); ALKALINE PHOSPHATASE 130 U/L (45-117); PHOSPHORUS 3.2 mg/dl (2.5-4.9)
[2017-08-11 12:55] LABS: ESTIMATED AVERAGE GLUCOSE 143 mg/dl; HA1C FLAG Normal (Normal)
== END | disposition home or self-care (01) ==
LOC: C.LAB1850 10:27
PROVIDERS: ATTEND Internal Medicine Nephrology
DX: E11.65 Type 2 diabetes mellitus with hyperglycemia (principal); I10 Essential (primary) hypertension

== ENCOUNTER → 2017-11-11 | Outpatient (CLI) | payer OTHER ==
[2017-11-11 10:27] LABS: HEMOGLOBIN A1C 7.8 % (4.5-5.6)
[2017-11-11 10:52] LABS: ALBUMIN 3.1 gm/dl (3.4-5.0); BLOOD UREA NITROGEN 31 mg/dl (7-18); CALCIUM 9.6 mg/dl (8.5-10.1); CARBON DIOXIDE 25 mmol/L (21-32); CREATININE 1.33 mg/dl (0.60-1.20); GLUCOSE 158 mg/dl (70-99); POTASSIUM 4.1 mmol/L (3.5-5.1); SODIUM 140 mmol/L (136-145)
[2017-11-11 10:53] LABS: PHOSPHORUS 2.6 mg/dl (2.5-4.9)
== END | disposition home or self-care (01) ==
LOC: C.LAB1850 09:04
PROVIDERS: ATTEND Internal Medicine Nephrology
DX: E11.65 Type 2 diabetes mellitus with hyperglycemia (principal); I10 Essential (primary) hypertension

== ENCOUNTER → 2018-05-20 | Outpatient (CLI) | payer OTHER ==
[2018-05-20 10:38] LABS: HEMOGLOBIN A1C 6.9 % (4.5-5.6)
== END | disposition home or self-care (01) ==
LOC: C.LAB1850 08:50
PROVIDERS: ATTEND Nurse Practitioner Family
DX: E11.65 Type 2 diabetes mellitus with hyperglycemia (principal)

== ENCOUNTER 2022-11-05 21:35 | Observation (INO) ==
[2022-11-05 22:25] LABS: Appearance Urine Turbid (Clear); Bacteria Urine Automated 4+ (Negative); Bilirubin Urine Negative (Negative); Blood Urine 2+ (Negative); Cast Urine Automated 0 /lpf (0-5); Color Urine Yellow; Epithelial Cell Urine Auto >30 /lpf (0-5); Glucose Urine UA 2+ (Negative); Ketones Urine Negative (Negative); Leukocyte Esterase Urine 2+ (Negative); Nitrite Urine Positive (Negative); Protein Urine 2+ (Negative); RBC Urine Automated 0-4 /hpf (0-4); Specific Gravity Urine 1.014 (1.000-1.030); Urobilinogen Urine Negative (Negative); WBC Urine Automated >30 /hpf (0-5)
[2022-11-05 22:32] LABS: Basophils # (auto) 0.06 K/uL (0-0.2); Basophils % (auto) 0.7 %; Eosinophils # (auto) 0.35 K/uL (0-0.50); Eosinophils % (auto) 4.2 %; Hematocrit (blood only) 28.2 % (34.1-44.9); Hemoglobin 9.7 g/dl (12.0-16.0); Immature Granulocytes # (auto) 0.12 K/uL (0.00-0.02); Immature Granulocytes % (auto) 1.4 %; Lymphocytes # (auto) 1.53 K/uL (1.2-3.4); Lymphocytes % (auto) 18.2 %; Mean Corpuscular Hemoglobin 33.1 pg (25.0-34.0); Mean Corpuscular Hgb Conc 34.4 g/dL (32.0-36.0); Mean Corpuscular Volume 96.2 fL (80.0-100.0); Mean Platelet Volume 11.5 fL (9.4-12.3); Monocytes # (auto) 0.64 K/uL (0.24-0.82); Monocytes % (auto) 7.6 %; Neutrophils # (auto) 5.71 K/uL (1.4-6.5); Neutrophils % (auto) 67.9 %; Platelet Count 284 K/uL (130-400); RDW Coefficient of Variation 14.6 % (11.5-14.5); RDW Standard Deviation 50.6 fL (36.4-46.3); Red Blood Count 2.93 M/uL (3.93-5.22); White Blood Count 8.41 K/ul (4.8-10.8)
[2022-11-05] MEDS ORDERED: SODIUM CHLORIDE 0.9% 1000ML 500 ML IV ONE (22:50)
[2022-11-05] MEDS ORDERED: cefTRIAXone SODIUM 2,000 MG/70 ML BAG IV STA (22:50)
[2022-11-05] MEDS ORDERED: SODIUM CHLORIDE 0.9% 1000ML 1,000 ML IV SCH (23:00)
[2022-11-05 23:01] LABS: Albumin Globulin Ratio 0.9 (0.9-2); Albumin Level 3.5 gm/dl (3.4-5.0); BUN Creatinine Ratio 27.1 (10-20); Bilirubin,Total 0.3 mg/dl (0.2-1.0); Calcium 9.5 mg/dl (8.5-10.1); Creatinine Clr Calc Pharmacy 21.2 ml/min; Est GFR (African American) 15.1 ml/min; Globulin 3.9 gm/dl (2.5-4.0); Potassium 5.1 mmol/L (3.5-5.1); Total Protein 7.4 gm/dl (6.0-8.3)
[2022-11-05] MEDS ORDERED: NovoLIN-R INSULIN PER UNIT CHARGE IV STA (23:06)
--- NOTE | 2022-11-06 00:20 | Emergency Department Note ---
Impression & Plan JAENIE (acute kidney injury), Hyperglycemia, Acute UTI (urinary tract infection) ED Provider Note INFORMANT: Patient ED PROVIDER(S): Hi Santiago MD CHIEF COMPLAINT: Abnormal labs PLAN: Disposition: Admitted Condition: Good Outpatient prescription management: none Referral: None MEDICAL DECISION MAKING: Patient presented because of abnormal labs. She had an IV established. Her abnormalities were verified and she was found to have acute kidney injury on her chemistry panel. She was mildly hyperglycemic as well. The patient unfortunate also has a UTI. Patient was hydrated. She was given IV insulin secondary to the hyperglycemia. The patient was given IV Rocephin secondary to the UTI. Patient's potassium is acceptable at this point in time. Further management will be necessary in the hospital due to the acute kidney injury and urinary tract infection. Patient and family were in agreement. [facility] Patient was evaluated in the ER and admitted for further management. After review of the information above and other included data, I feel the patient requires further management in the hospital. Triage Nursing notes reviewed and agree them. Vital Signs: reviewed and remarkable for no significant abnormalities Prior /Outside records reviewed: Prior nephrology notes reviewed. Information there was documented regarding the outpatient labs that were not immediately available from the outside facility. Differential diagnosis: Infection, dehydration, metabolic abnormality, hypo/hyperglycemia, electrolyte disturbance, anemia, hypoxia, cardiac sources, intracerebral event, toxicologic,as well as other pathologies. Diagnostics, as interpreted by me: ECG: none Cardiac Monitoring: Cardiac monitoring ordered by me: The patient was placed on continuous cardiac monitoring and observed. It revealed a normal sinus rhythm at 67 beats per minute without ectopy or evidence of dysrhythmia. Medical decision rules: none Imaging studies: Deferred HPI: The patient is a 77year old female who presents to the Emergency Room with complaints of abnormal outpatient labs. This was found and evaluated by the patient's binding printer Dr. Acevedo. Patient was found to have JEANIE and was directed to the emergency department. The patient also notes the following associated symptoms, urinary frequency. The patient has taken no medication for relieving factors. Current pain is rated as 0/10. Pt denies LOC, headache, fevers, chills, diaphoresis, visual changes, neck pain, chest pain, breathing difficulties, nausea, vomiting, abdominal pain, back pain, melena, hematochezia, numbness, weakness, lymphadenopathy, rash, or other complaints. PAST MEDICAL HISTORY: See Below, renal insufficiency, diabetes PAST SURGICAL HISTORY: See Below, SOCIAL HISTORY:Non-smoker, see below HOME MEDICATIONS: See Below ALLERGIES: See Below VITALS: See Below PHYSICAL EXAMINATION: GENERAL: Awake, alert, [id number], in no distress HENT: Normocephalic, atraumatic. Oropharynx unremarkable. EYES: Normal conjunctiva. Sclera non-icteric. NECK: Inspection normal. Non-tender. Supple. No nuchal rigidity. FROM. No masses. RESPIRATORY: Clear to auscultation. No wheezes. No rales. Normal respiratory effort. CARDIAC: Normal rate. Normal rhythm. No murmurs. No rubs. Extremities warm and well perfused. Pulses equal. No JVD. GI: Soft, non-distended. No tenderness to palpation. No rebound or guarding. No masses. RECTAL: Deferred. MUSCULOSKELETAL: Atraumatic. Chest examination reveals no tenderness. The back is symmetrical on inspection without obvious abnormality. There is no CVA tenderness to palpation. No joint edema. LOWER EXTREMITIES: Calves are equal size bilaterally and non-tender. Trace edema. No discoloration. NEURO: Normal sensorium. No sensory or motor deficits noted. SKIN: No rash or jaundice noted. Past Med/Surg History Medical History Bullous pemphigoid Clear cell carcinoma of kidney Diabetes mellitus type 2, uncontrolled Diabetic nephropathy Hyperlipidemia Hypertension Obesity Peripheral neuropathy Renal cell carcinoma of right kidney Surgical History H/O partial nephrectomy H/O Spinal surgery H/O: hysterectomy Family History Father Cancer Other Diabetes Social History Smoking Status: Never smoker Hx Alcohol Use: No Preferred Language: Maltese marital status details: Current Living Situation: Alone current occupational status: retired Feels Safe at Home: Yes Allergies Allergies Allergy/AdvReac Type Severity Reaction Status Date / Time adhesive Allergy Unknown RASH, Verified 11/06/22 00:15 BLISTERS. PAPER TAKE IS OK mupirocin Allergy Unknown OINTMENT Verified 11/06/22 00:15 CAUSED RASH, HIVES AND ITCHING YORDY CREAM Allergy Unknown n/v Uncoded 11/06/22 00:15 Home Meds Home Medications Medication Instructions Recorded Confirmed docusate sodium 100 mg tablet 100 mg PO BID PRN Anxiety 06/24/19 11/06/22 gabapentin 300 mg capsule 300 mg PO TID 06/24/19 11/05/22 lorazepam 0.5 mg tablet 0.5 mg PO BID 06/24/19 11/06/22 pravastatin 40 mg tablet 40 mg PO HS 06/24/19 11/05/22 blood-glucose meter #1 ea 07/26/20 11/06/22 lancets 33 gauge (BD Ultra Fine #100 ea 07/26/20 11/06/22 Lancets) pen needle, diabetic 31 gauge x #1,200 ea 10/05/20 11/06/22 5/16" (Easy Comfort Pen Line [place]) folic acid 1 mg tablet 2 mg PO DAILY 03/05/21 11/06/22 enalapril maleate 20 mg tablet 20 mg PO BID 07/17/21 11/05/22 allopurinol 100 mg tablet 100 mg PO QAM 02/18/22 11/06/22 carvedilol 25 mg tablet 50 mg PO BID 11/05/22 11/05/22 acetaminophen 500 mg tablet 500 mg PO QID PRN Pain 11/06/22 11/06/22 (Tylenol Extra Strength) acetaminophen 650 mg 650 mg PO Q8H PRN Pain 11/06/22 11/06/22 tablet,extended release furosemide 40 mg tablet 80 mg PO QAM 11/06/22 11/06/22 pantoprazole 40 mg tablet,delayed 40 mg PO QAM 11/06/22 11/06/22 release Previous Rx's Medication Instructions Recorded insulin lispro 200 unit/mL (3 mL) 50 unit (0.25 mL) subcut DAILY #24 02/08/21 subcutaneous pen (Humalog KwikPen mL U-200 Insulin) liraglutide 0.6 mg/0.1 mL (18 mg/3 See Rx Instructions subcut 06/24/22 mL) subcutaneous pen injector .COMPLEX #6 mL (Victoza 2-Lazaro) Results & Data (ED) Vital Signs Vital Signs - 24 hr 11/05/22 21:39 11/05/22 22:12 11/05/22 22:30 Temperature 36.3 C L Temperature Source Temporal Artery Scan Pulse Rate 68 71 66 Pulse Rate from SpO2 Sensor 71 66 Respiratory Rate 17 17 17 Respiratory Effort / Characteristics Non-Labored Spontaneous Respiratory Depth Normal Blood Pressure 185/69 H Blood Pressure Mean 107 Blood Pressure Position Sitting Pulse Oximetry 97 99 100 Oxygen Delivery Method Room Air Sepsis Recent Fever Within 48 Hours No Sepsis New/Unexplained Change in Mental Status No Sepsis Action Taken by Nursing No Action Required 11/05/22 23:00 11/05/22 23:01 11/05/22 23:01 Temperature Temperature Source Pulse Rate 65 67 Pulse Rate from SpO2 Sensor 65 67 Respiratory Rate 16 16 Respiratory Effort / Characteristics Respiratory Depth Blood Pressure 160/55 H Blood Pressure Mean 90 Blood Pressure Position Pulse Oximetry 99 98 Oxygen Delivery Method Sepsis Recent Fever Within 48 Hours Sepsis New/Unexplained Change in Mental Status Sepsis Action Taken by Nursing Laboratory Data 11/05/22 22:14 11/05/22 22:14 Lab Results 11/05/22 11/05/22 11/05/22 Range/Units 22:14 22:14 23:50 WBC 8.41 (4.8-10.8) K/ul RBC 2.93 L (3.93-5.22) M/uL Hgb 9.7 L (12.0-16.0) g/dl Hct 28.2 L (34.1-44.9) % MCV 96.2 (80.0-100.0) fL MCH 33.1 (25.0-34.0) pg MCHC 34.4 (32.0-36.0) g/dL RDW Std Deviation 50.6 H (36.4-46.3) fL RDW Coeff of Marian 14.6 H (11.5-14.5) % Plt Count 284 (130-400) K/uL MPV 11.5 (9.4-12.3) fL Immature Gran % (Auto) 1.4 % Neut % (Auto) 67.9 % Lymph % (Auto) 18.2 % [place] % (Auto) 7.6 % Eos % (Auto) 4.2 % Baso % (Auto) 0.7 % Neut # (Auto) 5.71 (1.4-6.5) K/uL Lymph # (Auto) 1.53 (1.2-3.4) K/uL [place] # (Auto) 0.64 (0.24-0.82) K/uL Eos # (Auto) 0.35 (0-0.50) K/uL Baso # (Auto) 0.06 (0-0.2) K/uL Immature Gran # (Auto) 0.12 H (0.00-0.02) K/uL Sodium 138 (136-145) mmol/L Potassium 5.1 (3.5-5.1) mmol/L Chloride 107 (98-107) mmol/L Carbon Dioxide 21 (21-32) mmol/L Anion Gap 10 (3-11) BUN 89 H (6-23) mg/dl Creatinine 3.28 H (0.6-1.2) mg/dl Est Cr Clr Drug Dosing 21.2 ml/min Est GFR ( Amer) 15.1 ml/min Est GFR (Non-Af Amer) 13.0 ml/min BUN/Creatinine Ratio 27.1 H (10-20) Glucose 369 H* (70-99(Fasting)) mg/dl POC Glucose (70-99) mg/dl Calcium 9.5 (8.5-10.1) mg/dl Total Bilirubin 0.3 (0.2-1.0) mg/dl AST 10 L (13-39) U/L ALT 9 (7-52) U/L Alkaline Phosphatase 118 H (34-104) U/L Total Protein 7.4 (6.0-8.3) gm/dl Albumin 3.5 (3.4-5.0) gm/dl Globulin 3.9 (2.5-4.0) gm/dl Albumin/Globulin Ratio 0.9 (0.9-2) Urine Color Urine Appearance (Clear) Urine pH (4.5-7.5) Ur Specific [place] (1.000-1.030) Urine Protein (Negative) Urine Glucose (UA) (Negative) Urine Ketones (Negative) Urine Blood (Negative) Urine Nitrite (Negative) Urine Bilirubin (Negative) Urine Urobilinogen (Negative) Ur Leukocyte Esterase (Negative) Urine WBC (Auto) (0-5) /hpf Urine RBC (Auto) (0-4) /hpf U Hyaline Cast (Auto) (0-5) /lpf U Epithel Cells (Auto) (0-5) /lpf Urine Bacteria (Auto) (Negative) SARS-CoV-2, RNA, NAAT NEGATIVE (NEGATIVE) 11/05/22 11/05/22 11/06/22 Range/Units 23:56 Unknown 01:19 WBC (4.8-10.8) K/ul RBC (3.93-5.22) M/uL Hgb (12.0-16.0) g/dl Hct (34.1-44.9) % MCV (80.0-100.0) fL MCH (25.0-34.0) pg MCHC (32.0-36.0) g/dL RDW Std Deviation (36.4-46.3) fL RDW Coeff of Marian (11.5-14.5) % Plt Count (130-400) K/uL MPV (9.4-12.3) fL Immature Gran % (Auto) % Neut % (Auto) % Lymph % (Auto) % [place] % (Auto) % Eos % (Auto) % Baso % (Auto) % Neut # (Auto) (1.4-6.5) K/uL Lymph # (Auto) (1.2-3.4) K/uL [place] # (Auto) (0.24-0.82) K/uL Eos # (Auto) (0-0.50) K/uL Baso # (Auto) (0-0.2) K/uL Immature Gran # (Auto) (0.00-0.02) K/uL Sodium (136-145) mmol/L Potassium (3.5-5.1) mmol/L Chloride (98-107) mmol/L Carbon Dioxide (21-32) mmol/L Anion Gap (3-11) BUN (6-23) mg/dl Creatinine (0.6-1.2) mg/dl Est Cr Clr Drug Dosing ml/min Est GFR ( Amer) ml/min Est GFR (Non-Af Amer) ml/min BUN/Creatinine Ratio (10-20) Glucose (70-99(Fasting)) mg/dl POC Glucose 331 H* 245 H (70-99) mg/dl Calcium (8.5-10.1) mg/dl Total Bilirubin (0.2-1.0) mg/dl AST (13-39) U/L ALT (7-52) U/L Alkaline Phosphatase (34-104) U/L Total Protein (6.0-8.3) gm/dl Albumin (3.4-5.0) gm/dl Globulin (2.5-4.0) gm/dl Albumin/Globulin Ratio (0.9-2) Urine Color Yellow Urine Appearance Turbid A (Clear) Urine pH 5.0 (4.5-7.5) Ur Specific [place] 1.014 (1.000-1.030) Urine Protein 2+ H (Negative) Urine Glucose (UA) 2+ H (Negative) Urine Ketones Negative (Negative) Urine Blood 2+ H (Negative) Urine Nitrite Positive A (Negative) Urine Bilirubin Negative (Negative) Urine Urobilinogen Negative (Negative) Ur Leukocyte Esterase 2+ H (Negative) Urine WBC (Auto) >30 H (0-5) /hpf Urine RBC (Auto) 0-4 (0-4) /hpf U Hyaline Cast (Auto) 0 (0-5) /lpf U Epithel Cells (Auto) >30 H (0-5) /lpf Urine Bacteria (Auto) 4+ H (Negative) SARS-CoV-2, RNA, NAAT (NEGATIVE) Administered Medications Sodium Chloride (Nss 1000ml) 1,000 mls @ 125 mls/hr IV .Q8H KEYANA Stop: 12/05/22 22:59 Last Admin: 11/05/22 23:17 Dose: 125 mls/hr Documented By: ALAN Discontinued Medications Sodium Chloride (Nss 1000ml) 500 mls @ 999 mls/hr IV .Q31M ONE Stop: 11/05/22 23:20 Last Infusion: 11/06/22 00:15 Dose: 0 mls/hr Documented By: Admin: 11/05/22 23:17 Dose: 999 mls/hr Documented By: ALAN Ceftriaxone Sodium (Rocephin) 2,000 mg in 70 mls @ 140 mls/hr IV NOW STA Stop: 11/05/22 23:19 Last Infusion: 11/06/22 00:15 Dose: 0 mls/hr Documented By: Admin: 11/05/22 23:16 Dose: 140 mls/hr Documented By: ALAN Insulin Human Regular (Novolin-R Insulin Per Unit Charge) 5 units IV NOW STA Stop: 11/05/22 23:07 Last Admin: 11/06/22 00:15 Dose: 5 units Documented By: ALAN Co-signed By: LINDSAY Discharge Plan Visit Data Chief Complaint: Testing Request Stated Complaint: LAB TEST REQUEST ED Provider: Hi Santiago Discharge Problem: JEANIE (acute kidney injury), Hyperglycemia, Acute UTI (urinary tract infection) Forms Stand Alone Forms: My [facility] [place] [employer] Prescriptions Prescriptions: No Action Humalog KwikPen Insulin 200 unit/mL (3 mL) insulin pen 50 unit subcut DAILY Qty: 24 3RF Rx Instructions: 6 units in the morning, 12u afternoon, 12u supper, plus sliding scale, tdd 50 units docusate sodium 100 mg tablet 100 mg PO BID PRN (Reason: Anxiety) gabapentin 300 mg capsule 300 mg PO TID lorazepam 0.5 mg tablet 0.5 mg PO BID Rx Instructions: ordered prn but pt takes every day bid pravastatin 40 mg tablet 40 mg PO HS (DME) lancets [BD Ultra Fine Lancets] 33 gauge misc See Rx Instructions .ROUTE .MEDSUPPLY Qty: 100 Rx Instructions: 3 X daily (DME) blood-glucose meter Kit See Rx Instructions .ROUTE .MEDSUPPLY Qty: 1 Rx Instructions: As directed (DME) pen needle, diabetic [Easy Comfort Pen Line [place]] 31 gauge x 5/16" needle See Rx Instructions .ROUTE .MEDSUPPLY Qty: 1200 Rx Instructions: Inject insulin four times daily folic acid 1 mg tablet 2 mg PO DAILY enalapril maleate 20 mg tablet 20 mg PO BID Rx Instructions: dr. acevedo suggests possibly holding med Victoza 2-Lazaro 0.6 mg/0.1 mL (18 mg/3 mL) pen injector See Rx Instructions subcut .COMPLEX Qty: 6 2RF Rx Instructions: inject 0.6mg subcutaneously once daily x 7 days; then 1.2mg daily, not to exceed 1.8mg/day subcut allopurinol 100 mg tablet 100 mg PO QAM carvedilol 25 mg tablet 50 mg PO BID pantoprazole 40 mg tablet,delayed release (DR/EC) 40 mg PO QAM acetaminophen [Tylenol Extra Strength] 500 mg Tablet 500 mg PO QID PRN (Reason: Pain) acetaminophen [Tylenol Arthritis] 650 mg Tablet Extended Release 650 mg PO Q8H PRN (Reason: Pain) furosemide 40 mg tablet 80 mg PO QAM Referrals Referrals: Glen Sparrow D.O. [Primary Care Provider] -
[2022-11-06] MEDS ORDERED: NovoLIN-R INSULIN PER UNIT CHARGE IV STA (00:51)
--- NOTE | 2022-11-06 00:54 | History & Physical Report ---
Date of Service November 06, 2022 Assessment & Plan (1) JEANIE (acute kidney injury): Plan: 77yo female presents with JEANIE on CKD. Cr presently 3.28 with baseline Cr of appx 2. K =5.1, HCO3=21. External catheter in place -Admit to medical with telemetry -Monitor strict I/Os -Check renal ultrasound -Check Urine Na and Urea -Check CK total -Avoid nephrotoxic agents. Will hold Lasix and Enalapril for now -Nephrology consultation appreciated -Gentle IVF with LR at 125mL/hr x 1 liter (2) Hyperglycemia: Plan: With history of DM, fairly well controlled with last DcmR3G=5.1 on 06/12/22. BSG elevated upon arrival to 369. She was given 5u of IV insulin with improvement to 245. Will give 7u SQ Insulin -Lantus 25u BID and ISS -Goal 110 - 140 -May require Pharmacy consultation -Continue Gabapentin for neuropathy - will reduce dose to 100mg po TID for renal function (3) Acute UTI (urinary tract infection): Plan: UA suggestive of infection. Culture pending -Ceftriaxone 2gm IV daily -Follow cultures (4) Hyperlipidemia: Plan: Chronic. Stable -Continue Pravastatin (5) Hypertension: Plan: Elevated blood pressure presently -Holding Lasix and Enalapril -Continue Carvedilol -Consider Amlodipine or PO Hydralazine if additional BP medications needed during hospitalization F/E/N - LR at 125mL/hr x 1 liter, monitor renal function and electroltyes, CC diet as tolerated Ppx - Heparin, continue home Protonix Code -Full Dispo - Admit to medical with telemetry History of Present Illness Chief Complaint: JEANIE on CKD Primary Care Provider: Glen Sparrow Charlene Alonso is a 77yo female with history of bullous pemphigoid, DM, HTN, HLP and prior clear cell RCC s/p partial nephrectomy presenting with worsening renal function. Patient had routine outpatient labs performed in the [facility] system which revealed worsening renal function, hyperkalemia and acute on chronic hyperkalemia (Cr 3.74, K=5.9 and HCO3=18, To=490, Nnm=714). She was notified by Nephrology and instructed to come to the ER. Overall patient feels well. She denies fever, chills, chest pain, cough, SOB. She reports she is eating and drinking well at home and taking her medications. She does have a difficult time fully emptying her bladder and feels that she has had increased thirst and frequency of urination over the last several days. In the ER she is hypertensive, otherwise HD stable. ER Course: Ceftriaxone, Insulin 5u IV, 5u SQ, NSS Allergies Allergy/AdvReac Type Severity Reaction Status Date / Time adhesive Allergy Unknown RASH, Verified 11/06/22 00:15 BLISTERS. PAPER TAKE IS OK mupirocin Allergy Unknown OINTMENT Verified 11/06/22 00:15 CAUSED RASH, HIVES AND ITCHING YORDY CREAM Allergy Unknown n/v Uncoded 11/06/22 00:15 Home Medications Medication Instructions Recorded Confirmed Type docusate sodium 100 mg tablet 100 mg PO BID PRN Anxiety 06/24/19 11/06/22 History gabapentin 300 mg capsule 300 mg PO TID 06/24/19 11/05/22 History lorazepam 0.5 mg tablet 0.5 mg PO BID 06/24/19 11/06/22 History pravastatin 40 mg tablet 40 mg PO HS 06/24/19 11/05/22 History blood-glucose meter #1 ea 07/26/20 11/06/22 History lancets 33 gauge (BD Ultra Fine #100 ea 07/26/20 11/06/22 History Lancets) pen needle, diabetic 31 gauge x #1,200 ea 10/05/20 11/06/22 History 5/16" (Easy Comfort Pen [place]) insulin lispro 200 unit/mL (3 mL) 50 unit (0.25 mL) subcut DAILY #24 02/08/21 11/06/22 Rx subcutaneous pen (Humalog KwikPen mL U-200 Insulin) folic acid 1 mg tablet 2 mg PO DAILY 03/05/21 11/06/22 History enalapril maleate 20 mg tablet 20 mg PO BID 07/17/21 11/05/22 History allopurinol 100 mg tablet 100 mg PO QAM 02/18/22 11/06/22 History liraglutide 0.6 mg/0.1 mL (18 mg/3 See Rx Instructions subcut 06/24/22 11/05/22 Rx mL) subcutaneous pen injector .COMPLEX #6 mL (Victoza 2-Lazaro) carvedilol 25 mg tablet 50 mg PO BID 11/05/22 11/05/22 History acetaminophen 500 mg tablet 500 mg PO QID PRN Pain 11/06/22 11/06/22 History (Tylenol Extra Strength) acetaminophen 650 mg 650 mg PO Q8H PRN Pain 11/06/22 11/06/22 History tablet,extended release furosemide 40 mg tablet 80 mg PO QAM 11/06/22 11/06/22 History pantoprazole 40 mg tablet,delayed 40 mg PO QAM 11/06/22 11/06/22 History release Past Med/Surg History Medical History Bullous pemphigoid Clear cell carcinoma of kidney Diabetes mellitus type 2, uncontrolled Diabetic nephropathy Hyperlipidemia Hypertension Obesity Peripheral neuropathy Renal cell carcinoma of right kidney Surgical History H/O partial nephrectomy H/O Spinal surgery H/O: hysterectomy Family History Father Cancer Other Diabetes Social History Smoking Status: Never smoker Hx Alcohol Use: No Preferred Language: Botswan[place] marital status details: Current Living Situation: Alone current occupational status: retired Feels Safe at Home: Yes Review of Systems Review of Systems: All systems reviewed & are unremarkable except as noted in HPI & below Physical Exam Physical Exam: General: patient resting comfortably, NAD, non-toxic in appearance, AA&O x 4 Skin: warm, dry, intact, no rashes or lesions HEENT: NC/AT, PERRL, EOMI, anicteric sclera, conjunctiva without injection, external ear normal to inspection and nontender, nares patent, moist mucus membranes, dentition intact, no oropharyngeal lesions, neck supple, trachea midline, no LAD, no thyromegaly, no JVD Heart: +S1/S2, regular, no m/r/g Lungs: equal air entry bilaterally, no rales/rhonchi/wheezes Abd: +BS, soft, NT/ND, no masses/organomegaly/ascites Ext: warm, 2+ pulses in UE/LE bilaterally, no clubbing/cyanosis or edema Neuro: nonfocal, patient AA&O x 4, speech intact, no facial droop, moving all extremities on command with equal strength 5/5 Results & Data Results & Data ([facility]) Vital Signs (Past 12 Hours) Vital Signs Temp Pulse Resp BP Pulse Ox O2 Del Method 11/05/22 23:01 160/55 H 11/05/22 23:01 67 16 98 11/05/22 23:00 65 16 99 11/05/22 22:30 66 17 100 11/05/22 22:12 71 17 99 11/05/22 21:39 36.3 C L 68 17 185/69 H 97 Room Air Laboratory Results Laboratory Results WBC 8.41 K/ul (4.8-10.8) 11/05/22 22:14 RBC 2.93 M/uL (3.93-5.22) L 11/05/22 22:14 Hgb 9.7 g/dl (12.0-16.0) L 11/05/22 22:14 Hct 28.2 % (34.1-44.9) L 11/05/22 22:14 MCV 96.2 fL (80.0-100.0) 11/05/22 22:14 MCH 33.1 pg (25.0-34.0) 11/05/22 22:14 MCHC 34.4 g/dL (32.0-36.0) 11/05/22 22:14 RDW Std Deviation 50.6 fL (36.4-46.3) H 11/05/22 22:14 RDW Coeff of Marian 14.6 % (11.5-14.5) H 11/05/22 22:14 Plt Count 284 K/uL (130-400) 11/05/22 22:14 MPV 11.5 fL (9.4-12.3) 11/05/22 22:14 Immature Gran % (Auto) 1.4 % 11/05/22 22:14 Neut % (Auto) 67.9 % 11/05/22 22:14 Lymph % (Auto) 18.2 % 11/05/22 22:14 [place] % (Auto) 7.6 % 11/05/22 22:14 Eos % (Auto) 4.2 % 11/05/22 22:14 Baso % (Auto) 0.7 % 11/05/22 22:14 Neut # (Auto) 5.71 K/uL (1.4-6.5) 11/05/22 22:14 Lymph # (Auto) 1.53 K/uL (1.2-3.4) 11/05/22 22:14 [place] # (Auto) 0.64 K/uL (0.24-0.82) 11/05/22 22:14 Eos # (Auto) 0.35 K/uL (0-0.50) 11/05/22 22:14 Baso # (Auto) 0.06 K/uL (0-0.2) 11/05/22 22:14 Immature Gran # (Auto) 0.12 K/uL (0.00-0.02) H 11/05/22 22:14 Sodium 138 mmol/L (136-145) 11/05/22 22:14 Potassium 5.1 mmol/L (3.5-5.1) 11/05/22 22:14 Chloride 107 mmol/L (98-107) 11/05/22 22:14 Carbon Dioxide 21 mmol/L (21-32) 11/05/22 22:14 Anion Gap 10 (3-11) 11/05/22 22:14 BUN 89 mg/dl (6-23) H 11/05/22 22:14 Creatinine 3.28 mg/dl (0.6-1.2) H 11/05/22 22:14 Est Cr Clr Drug Dosing 21.2 ml/min 11/05/22 22:14 Est GFR ( Amer) 15.1 ml/min 11/05/22 22:14 Est GFR (Non-Af Amer) 13.0 ml/min 11/05/22 22:14 BUN/Creatinine Ratio 27.1 (10-20) H 11/05/22 22:14 Glucose 369 mg/dl (70-99(Fasting)) H* 11/05/22 22:14 POC Glucose 245 mg/dl (70-99) H 11/06/22 01:19 Calcium 9.5 mg/dl (8.5-10.1) 11/05/22 22:14 Phosphorus 4.9 mg/dl (2.5-4.9) 11/05/22 22:14 Magnesium 1.6 mg/dl (1.7-2.4) L 11/05/22 22:14 Total Bilirubin 0.3 mg/dl (0.2-1.0) 11/05/22 22:14 AST 10 U/L (13-39) L 11/05/22 22:14 ALT 9 U/L (7-52) 11/05/22 22:14 Alkaline Phosphatase 118 U/L (34-104) H 11/05/22 22:14 Total Creatine Kinase 50 U/L (26-192) 11/05/22 22:14 Total Protein 7.4 gm/dl (6.0-8.3) 11/05/22 22:14 Albumin 3.5 gm/dl (3.4-5.0) 11/05/22 22:14 Globulin 3.9 gm/dl (2.5-4.0) 11/05/22 22:14 Albumin/Globulin Ratio 0.9 (0.9-2) 11/05/22 22:14 Urine Color Yellow 11/05/22 Unknown Urine Appearance Turbid (Clear) A 11/05/22 Unknown Urine pH 5.0 (4.5-7.5) 11/05/22 Unknown Ur Specific [place] 1.014 (1.000-1.030) 11/05/22 Unknown Urine Protein 2+ (Negative) H 11/05/22 Unknown Urine Glucose (UA) 2+ (Negative) H 11/05/22 Unknown Urine Ketones Negative (Negative) 11/05/22 Unknown Urine Blood 2+ (Negative) H 11/05/22 Unknown Urine Nitrite Positive (Negative) A 11/05/22 Unknown Urine Bilirubin Negative (Negative) 11/05/22 Unknown Urine Urobilinogen Negative (Negative) 11/05/22 Unknown Ur Leukocyte Esterase 2+ (Negative) H 11/05/22 Unknown Urine WBC (Auto) >30 /hpf (0-5) H 11/05/22 Unknown Urine RBC (Auto) 0-4 /hpf (0-4) 11/05/22 Unknown U Hyaline Cast (Auto) 0 /lpf (0-5) 11/05/22 Unknown U Epithel Cells (Auto) >30 /lpf (0-5) H 11/05/22 Unknown Urine Bacteria (Auto) 4+ (Negative) H 11/05/22 Unknown SARS-CoV-2, RNA, NAAT NEGATIVE (NEGATIVE) 11/05/22 23:50 Code Status & VTE Plan VTE Prophylaxis Plan VTE Prophylaxis will be ordered: Yes PG Care Time/CCT Total # of Minutes Spent Total Time Spent with Patient: Total time spent is greater than 50% in coordination of care (as documented) at patient's floor/unit and/or counseling patient: Coding Level of Care Code 30663 INT INP/OBS CARE 2/55MIN Diagnoses JEANIE (acute kidney injury) N17.9 Hyperglycemia R73.9 Acute UTI (urinary tract infection) N39.0 Hyperlipidemia E78.5 Hypertension I10
[2022-11-06] MEDS ORDERED: NovoLIN-R INSULIN PER UNIT CHARGE SC STA (01:27)
[2022-11-06] MEDS ORDERED: DEXTROSE 50% 50 ML SYRINGE IV PRN (02:13)
[2022-11-06] MEDS ORDERED: CARBOHYDRATES FOR HYPOGLYCEMIA PO PRN (02:13)
[2022-11-06] MEDS ORDERED: LACTATED RINGER'S 1,000 ML IV SCH (02:13)
[2022-11-06] MEDS ORDERED: GLUCAGON FOR INJ 1 MG VIAL SQ PRN (02:13)
[2022-11-06] MEDS ORDERED: DOCUSATE SODIUM 100 MG CAP PO PRN (02:13)
[2022-11-06] MEDS ORDERED: GLUCOSE 10 TAB/TUBE PO PRN (02:13)
[2022-11-06] MEDS ORDERED: GLUCOSE 40% GEL 15 GM TUBE PO PRN (02:13)
[2022-11-06 02:50] LABS: Magnesium 1.6 mg/dl (1.7-2.4); Phosphorus 4.9 mg/dl (2.5-4.9)
[2022-11-06] MEDS: INSULIN ASPART PER UNIT SC SCH ×5 (03:49→21:02)
[2022-11-06] MEDS ORDERED: NYSTATIN POWDER 15GM BTL EXT PRN (04:04)
[2022-11-06] MEDS: HEPARIN SOD 5,000 UNIT/0.5 ML VIAL SQ SCH ×3 (06:34→21:06)
--- NOTE | 2022-11-06 07:23 | Ultrasound Report ---
RENAL ULTRASOUND HISTORY: Acute on chronic kidney disease. COMPARISON: Abdomen and pelvis CT 07/17/2017. FINDINGS: Right kidney: 9.2 cm. No hydronephrosis. Moderate cortical thinning with increased cortical echogenic ity. Left kidney: 11.7 cm. No hydronephrosis. Moderate cortical thinning with increased cortical echogenic ity. Left kidney is partially obscured by overlying bowel gas. Bladder: Not identified. IMPRESSION: 1. No hydronephrosis. 2. Moderate bilateral cortical renal thinning with increased cortical echogenicity suggestive of medi james renal disease. ACT 112: Negative or not required by law. Electronically signed by: Dioni Cowart M.D. 11/06/2022 7:22 AM
[2022-11-06] MEDS: ACETAMINOPHEN 500 MG TAB PO PRN ×2 (07:58→16:09)
[2022-11-06] MEDS: allopurinoL 100 MG TAB PO SCH (08:04)
[2022-11-06] MEDS: GABAPENTIN 100 MG CAP PO SCH ×3 (08:05→21:05)
[2022-11-06] MEDS: FOLIC ACID 1 MG TAB PO SCH (08:05)
[2022-11-06] MEDS: carvediloL 25 MG TAB PO SCH ×2 (08:05→21:05)
[2022-11-06] MEDS: PANTOprazole 40 MG TAB PO SCH (08:06)
[2022-11-06] MEDS: LORazepam 0.5 MG TAB PO SCH ×2 (08:14→21:02)
--- NOTE | 2022-11-06 08:20 | Hospitalist Progress Note ---
Date of Service November 06, 2022 Assessment & Plan (1) JEANIE (acute kidney injury): Plan: 77yo female presents with JEANIE on CKD, possible UTI. Cr presently 3.28 with baseline Cr of appx 2. K =5.1, HCO3=21. Of note, patient with history of clear cell carcinoma s/p partial nephrectomy in June [address] Acevedo, maintained on enalapril typically (held given JEANIE) and had been having her lasix increased to 80mg daily for R sided heart failure with LE edema Per oncall note, had labs reviewed from [facility] for routine labs w/ worsening kidney function/JEANIE, hyperkalemia, acute on chronic anemia and told to come to ER Per Dr Acevedo, Ms Alonso had increased fluid retention in September and diuretics increased/reported signifciant improvement/almost resolution of LE edema but then was only voiding small amounts (although frequently) External catheter in place -Admit to medical with telemetry -Monitor strict I/Os -Check renal ultrasound -- no obstruction -Check Urine Na and Urea -Check CK total -- 50 -Nephrology consultation appreciated -Gentle IVF with LR at 125mL/hr x 1 liter 11/06 JEANIE -- likely combination from increased diuretics use for LE edema as well as UTI Cr trending down on repeat -- continue IVF, holding lasix/enalapril for now. Avoid nephrotoxic agents Continue Ceftriaxone for possible UTI -- reported increased frequency, small amounts though. Monitor urine cx Also, check iron panel/B12 to ensure no issues with anemia contributing Of note, prior Vit D 16, PTH elevated to 300s, will repeat Vit D. Appears she should be on D2 supplementation -- will need to inquire -- she states she has not been on this Nephrology on consult -- appreciate assistance Continue to monitor labs/electrolyte replacement as needed (2) Acute UTI (urinary tract infection): Plan: UA suggestive of infection. Culture pending -Ceftriaxone 2gm IV daily -Follow cultures (3) Hyperglycemia: Plan: With history of DM, fairly well controlled with last [id number]=3.1 on 06/12/22. BSG elevated upon arrival to 369. She was given 5u of IV insulin with improvement to 245. Will give 7u SQ Insulin -Lantus 25u BID and ISS -Goal 110 - 140 -Continue Gabapentin for neuropathy - will reduce dose to 100mg po TID for renal function -Consulted pharm for assistance (4) Hyperlipidemia: Plan: Chronic. 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 But given iPTH in 300s, may be primary hyperparathyroidism as well? Messaged nephrology of concerns for prior lows/not on supp as well Of note, suspect elevated ALP from bone/Vit D def, however did report some R flank pain Renal US w/o evidence for hydronpehrosis Check RUQ for further eval Plan continued inpatient stay Ppx - Heparin, continue home Protonix Code -Full Dispo - Admit to medical with telemetry Admission and Anticipated Discharge Date Admission Date: November 06, 2022 Supervising Physician Co-Signing Physician Notes PA Supervision Note: I did not personally see or examine the patient today, but I verified all arechiga points of ROBIN Drew's assessment and plan with the following exceptions/additions: None Subjective BRIDGE NOTE: ADMIT AFTER MIDNIGHT Patient seen this morning, resting in bed. Feeling alright, had some cramping earlier, improving with mag IV. States hadn't been drinking/eating much but still urinating, possible UTI discussed. She states she had routine labs as outpatient at [place] as it's right near her house and then was contacting Dr Acevedo's office and advised to come to hospital for evaluation. No fever/chills, chest pain. Does have some shortness of breath with exertion. Had her lasix increased for LE edema which she says has improved, however she does still have some LE edema with chronic venous stasis changes as well. Does have some abdominal discomforts at times to her right side. Of note, Vit D level prior low, not on supplementation. Would like daughter Yessenia updated later. Physical Exam Physical Exam: General: patient resting comfortably, NAD, non-toxic in appearance, AA&O x 4 Skin: warm, dry, intact, no rashes or lesions HEENT: NC/AT, PERRL, EOMI, anicteric sclera, conjunctiva without injection, external ear normal to inspection and nontender, nares patent, mucus membranes slightly dry, dentition intact, no oropharyngeal lesions, neck supple, trachea midline, no LAD, no thyromegaly, no JVD Heart: +S1/S2, regular, no m/r/g, 1+ LE edema, chronic venous stasis Lungs: equal air entry bilaterally, no rales/rhonchi/wheezes Abd: +BS, soft, NT/ND, no masses/organomegaly/ascites Ext: warm, 2+ pulses in UE/LE bilaterally, no clubbing/cyanosis or edema Neuro: nonfocal, patient AA&O x 4, speech intact, no facial droop, moving all extremities on command with equal strength 5/5 Results & Data Results & Data ([facility]) Vital Signs (Past 12 Hours) Vital Signs Temp Pulse Pulse Resp BP BP BP 11/06/22 07:56 36.5 C 67 19 133/74 11/06/22 04:03 36.5 C 73 18 124/60 11/06/22 02:44 36.5 C 73 16 161/79 H 11/06/22 01:49 68 18 178/74 H 11/06/22 01:30 65 18 11/06/22 01:01 67 20 11/06/22 01:01 173/62 H 11/06/22 01:00 66 21 11/06/22 00:30 70 17 11/06/22 00:00 71 23 11/06/22 00:00 156/106 H 11/05/22 23:30 69 28 H 11/05/22 23:01 160/55 H 11/05/22 23:01 67 16 11/05/22 23:00 65 16 11/05/22 22:30 66 17 11/05/22 22:12 71 17 11/05/22 21:39 36.3 C L 68 17 185/69 H Pulse Ox O2 Del Method 11/06/22 07:56 98 Room Air 11/06/22 04:03 95 Room Air 11/06/22 02:44 97 Room Air 01/12/23 01:49 98 Room Air 11/06/22 01:30 98 11/06/22 01:01 97 11/06/22 01:01 11/06/22 01:00 98 11/06/22 00:30 98 11/06/22 00:00 98 11/06/22 00:00 11/05/22 23:30 98 11/05/22 23:01 11/05/22 23:01 98 11/05/22 23:00 99 11/05/22 22:30 100 11/05/22 22:12 99 11/05/22 21:39 97 Room Air Laboratory Results 11/06/22 11/06/22 11/06/22 Range/Units Unknown Unknown 11:55 WBC (4.8-10.8) K/ul RBC (3.93-5.22) M/uL Hgb (12.0-16.0) g/dl Hct (34.1-44.9) % MCV (80.0-100.0) fL MCH (25.0-34.0) pg MCHC (32.0-36.0) g/dL RDW Std Deviation (36.4-46.3) fL RDW Coeff of Marian (11.5-14.5) % Plt Count (130-400) K/uL MPV (9.4-12.3) fL Immature Gran % (Auto) % Neut % (Auto) % Lymph % (Auto) % [place] % (Auto) % Eos % (Auto) % Baso % (Auto) % Neut # (Auto) (1.4-6.5) K/uL Lymph # (Auto) (1.2-3.4) K/uL [place] # (Auto) (0.24-0.82) K/uL Eos # (Auto) (0-0.50) K/uL Baso # (Auto) (0-0.2) K/uL Immature Gran # (Auto) (0.00-0.02) K/uL Sodium (136-145) mmol/L Potassium (3.5-5.1) mmol/L Chloride (98-107) mmol/L Carbon Dioxide (21-32) mmol/L Anion Gap (3-11) BUN (6-23) mg/dl Creatinine (0.6-1.2) mg/dl Est Cr Clr Drug Dosing ml/min Est GFR ( Amer) ml/min Est GFR (Non-Af Amer) ml/min BUN/Creatinine Ratio (10-20) Glucose (70-99(Fasting)) mg/dl POC Glucose 180 H (70-99) mg/dl Calcium (8.5-10.1) mg/dl Phosphorus (2.5-4.9) mg/dl Magnesium (1.7-2.4) mg/dl Iron (35-150) mcg/dl TIBC (250-450) mcg/dl Unsaturated IBC (155-355) mcg/dl Transferrin % Sat (15-50) % Ferritin (8-388) ng/ml Total Bilirubin (0.2-1.0) mg/dl AST (13-39) U/L ALT (7-52) U/L Alkaline Phosphatase (34-104) U/L Total Creatine Kinase (26-192) U/L Total Protein (6.0-8.3) gm/dl Albumin (3.4-5.0) gm/dl Globulin (2.5-4.0) gm/dl Albumin/Globulin Ratio (0.9-2) Vitamin B12 (180-914) pg/ml 25-OH Vitamin D Total (30-100) ng/ml Folate (>5.38) ng/ml Urine Color Urine Appearance (Clear) Urine pH (4.5-7.5) Ur Specific [place] (1.000-1.030) Urine Protein (Negative) Urine Glucose (UA) (Negative) Urine Ketones (Negative) Urine Blood (Negative) Urine Nitrite (Negative) Urine Bilirubin (Negative) Urine Urobilinogen (Negative) Ur Leukocyte Esterase (Negative) Urine WBC (Auto) (0-5) /hpf Urine RBC (Auto) (0-4) /hpf U Hyaline Cast (Auto) (0-5) /lpf U Epithel Cells (Auto) (0-5) /lpf Urine Bacteria (Auto) (Negative) Ur Random Sodium 73 mmol/L Ur Random Urea Nitrogn Pending Hepatitis C Ab (EIA) Hep C Ab Signal/Cutoff SARS-CoV-2, RNA, NAAT (NEGATIVE) 11/06/22 11/06/22 11/06/22 Range/Units 08:42 08:42 08:42 WBC 8.09 (4.8-10.8) K/ul RBC 2.59 L (3.93-5.22) M/uL Hgb 8.5 L (12.0-16.0) g/dl Hct 25.3 L (34.1-44.9) % MCV 97.7 (80.0-100.0) fL MCH 32.8 (25.0-34.0) pg MCHC 33.6 (32.0-36.0) g/dL RDW Std Deviation 53.2 H (36.4-46.3) fL RDW Coeff of Marian 14.7 H (11.5-14.5) % Plt Count 263 (130-400) K/uL MPV 11.5 (9.4-12.3) fL Immature Gran % (Auto) % Neut % (Auto) % Lymph % (Auto) % [place] % (Auto) % Eos % (Auto) % Baso % (Auto) % Neut # (Auto) (1.4-6.5) K/uL Lymph # (Auto) (1.2-3.4) K/uL [place] # (Auto) (0.24-0.82) K/uL Eos # (Auto) (0-0.50) K/uL Baso # (Auto) (0-0.2) K/uL Immature Gran # (Auto) (0.00-0.02) K/uL Sodium 141 (136-145) mmol/L Potassium 4.8 (3.5-5.1) mmol/L Chloride 112 H (98-107) mmol/L Carbon Dioxide 22 (21-32) mmol/L Anion Gap 7 (3-11) BUN 80 H (6-23) mg/dl Creatinine 2.89 H D (0.6-1.2) mg/dl Est Cr Clr Drug Dosing 23.7 ml/min Est GFR ( Amer) 17.6 ml/min Est GFR (Non-Af Amer) 15.2 ml/min BUN/Creatinine Ratio 27.7 H (10-20) Glucose 210 H (70-99(Fasting)) mg/dl POC Glucose (70-99) mg/dl Calcium 9.3 (8.5-10.1) mg/dl Phosphorus (2.5-4.9) mg/dl Magnesium 1.6 L (1.7-2.4) mg/dl Iron 66 (35-150) mcg/dl TIBC 205 L (250-450) mcg/dl Unsaturated IBC 139 L (155-355) mcg/dl Transferrin % Sat 32 (15-50) % Ferritin 146.7 (8-388) ng/ml Total Bilirubin 0.3 (0.2-1.0) mg/dl AST 9 L (13-39) U/L ALT 7 (7-52) U/L Alkaline Phosphatase 97 (34-104) U/L Total Creatine Kinase (26-192) U/L Total Protein 6.4 (6.0-8.3) gm/dl Albumin 3.1 L (3.4-5.0) gm/dl Globulin 3.3 (2.5-4.0) gm/dl Albumin/Globulin Ratio 0.9 (0.9-2) Vitamin B12 216 (180-914) pg/ml 25-OH Vitamin D Total < 7.0 L (30-100) ng/ml Folate > 22.30 (>5.38) ng/ml Urine Color Urine Appearance (Clear) Urine pH (4.5-7.5) Ur Specific [place] (1.000-1.030) Urine Protein (Negative) Urine Glucose (UA) (Negative) Urine Ketones (Negative) Urine Blood (Negative) Urine Nitrite (Negative) Urine Bilirubin (Negative) Urine Urobilinogen (Negative) Ur Leukocyte Esterase (Negative) Urine WBC (Auto) (0-5) /hpf Urine RBC (Auto) (0-4) /hpf U Hyaline Cast (Auto) (0-5) /lpf U Epithel Cells (Auto) (0-5) /lpf Urine Bacteria (Auto) (Negative) Ur Random Sodium mmol/L Ur Random Urea Nitrogn Hepatitis C Ab (EIA) Hep C Ab Signal/Cutoff SARS-CoV-2, RNA, NAAT (NEGATIVE) 11/06/22 11/06/22 11/06/22 Range/Units 07:53 03:40 01:19 WBC (4.8-10.8) K/ul RBC (3.93-5.22) M/uL Hgb (12.0-16.0) g/dl Hct (34.1-44.9) % MCV (80.0-100.0) fL MCH (25.0-34.0) pg MCHC (32.0-36.0) g/dL RDW Std Deviation (36.4-46.3) fL RDW Coeff of Marian (11.5-14.5) % Plt Count (130-400) K/uL MPV (9.4-12.3) fL Immature Gran % (Auto) % Neut % (Auto) % Lymph % (Auto) % [place] % (Auto) % Eos % (Auto) % Baso % (Auto) % Neut # (Auto) (1.4-6.5) K/uL Lymph # (Auto) (1.2-3.4) K/uL [place] # (Auto) (0.24-0.82) K/uL Eos # (Auto) (0-0.50) K/uL Baso # (Auto) (0-0.2) K/uL Immature Gran # (Auto) (0.00-0.02) K/uL Sodium (136-145) mmol/L Potassium (3.5-5.1) mmol/L Chloride (98-107) mmol/L Carbon Dioxide (21-32) mmol/L Anion Gap (3-11) BUN (6-23) mg/dl Creatinine (0.6-1.2) mg/dl Est Cr Clr Drug Dosing ml/min Est GFR ( Amer) ml/min Est GFR (Non-Af Amer) ml/min BUN/Creatinine Ratio (10-20) Glucose (70-99(Fasting)) mg/dl POC Glucose 189 H 247 H 245 H (70-99) mg/dl Calcium (8.5-10.1) mg/dl Phosphorus (2.5-4.9) mg/dl Magnesium (1.7-2.4) mg/dl Iron (35-150) mcg/dl TIBC (250-450) mcg/dl Unsaturated IBC (155-355) mcg/dl Transferrin % Sat (15-50) % Ferritin (8-388) ng/ml Total Bilirubin (0.2-1.0) mg/dl AST (13-39) U/L ALT (7-52) U/L Alkaline Phosphatase (34-104) U/L Total Creatine Kinase (26-192) U/L Total Protein (6.0-8.3) gm/dl Albumin (3.4-5.0) gm/dl Globulin (2.5-4.0) gm/dl Albumin/Globulin Ratio (0.9-2) Vitamin B12 (180-914) pg/ml 25-OH Vitamin D Total (30-100) ng/ml Folate (>5.38) ng/ml Urine Color Urine Appearance (Clear) Urine pH (4.5-7.5) Ur Specific [place] (1.000-1.030) Urine Protein (Negative) Urine Glucose (UA) (Negative) Urine Ketones (Negative) Urine Blood (Negative) Urine Nitrite (Negative) Urine Bilirubin (Negative) Urine Urobilinogen (Negative) Ur Leukocyte Esterase (Negative) Urine WBC (Auto) (0-5) /hpf Urine RBC (Auto) (0-4) /hpf U Hyaline Cast (Auto) (0-5) /lpf U Epithel Cells (Auto) (0-5) /lpf Urine Bacteria (Auto) (Negative) Ur Random Sodium mmol/L Ur Random Urea Nitrogn Hepatitis C Ab (EIA) Hep C Ab Signal/Cutoff SARS-CoV-2, RNA, NAAT (NEGATIVE) 11/05/22 11/05/22 11/05/22 Range/Units Unknown 23:56 23:50 WBC (4.8-10.8) K/ul RBC (3.93-5.22) M/uL Hgb (12.0-16.0) g/dl Hct (34.1-44.9) % MCV (80.0-100.0) fL MCH (25.0-34.0) pg MCHC (32.0-36.0) g/dL RDW Std Deviation (36.4-46.3) fL RDW Coeff of Marian (11.5-14.5) % Plt Count (130-400) K/uL MPV (9.4-12.3) fL Immature Gran % (Auto) % Neut % (Auto) % Lymph % (Auto) % [place] % (Auto) % Eos % (Auto) % Baso % (Auto) % Neut # (Auto) (1.4-6.5) K/uL Lymph # (Auto) (1.2-3.4) K/uL [place] # (Auto) (0.24-0.82) K/uL Eos # (Auto) (0-0.50) K/uL Baso # (Auto) (0-0.2) K/uL Immature Gran # (Auto) (0.00-0.02) K/uL Sodium (136-145) mmol/L Potassium (3.5-5.1) mmol/L Chloride (98-107) mmol/L Carbon Dioxide (21-32) mmol/L Anion Gap (3-11) BUN (6-23) mg/dl Creatinine (0.6-1.2) mg/dl Est Cr Clr Drug Dosing ml/min Est GFR ( Amer) ml/min Est GFR (Non-Af Amer) ml/min BUN/Creatinine Ratio (10-20) Glucose (70-99(Fasting)) mg/dl POC Glucose 331 H* (70-99) mg/dl Calcium (8.5-10.1) mg/dl Phosphorus (2.5-4.9) mg/dl Magnesium (1.7-2.4) mg/dl Iron (35-150) mcg/dl TIBC (250-450) mcg/dl Unsaturated IBC (155-355) mcg/dl Transferrin % Sat (15-50) % Ferritin (8-388) ng/ml Total Bilirubin (0.2-1.0) mg/dl AST (13-39) U/L ALT (7-52) U/L Alkaline Phosphatase (34-104) U/L Total Creatine Kinase (26-192) U/L Total Protein (6.0-8.3) gm/dl Albumin (3.4-5.0) gm/dl Globulin (2.5-4.0) gm/dl Albumin/Globulin Ratio (0.9-2) Vitamin B12 (180-914) pg/ml 25-OH Vitamin D Total (30-100) ng/ml Folate (>5.38) ng/ml Urine Color Yellow Urine Appearance Turbid A (Clear) Urine pH 5.0 (4.5-7.5) Ur Specific [place] 1.014 (1.000-1.030) Urine Protein 2+ H (Negative) Urine Glucose (UA) 2+ H (Negative) Urine Ketones Negative (Negative) Urine Blood 2+ H (Negative) Urine Nitrite Positive A (Negative) Urine Bilirubin Negative (Negative) Urine Urobilinogen Negative (Negative) Ur Leukocyte Esterase 2+ H (Negative) Urine WBC (Auto) >30 H (0-5) /hpf Urine RBC (Auto) 0-4 (0-4) /hpf U Hyaline Cast (Auto) 0 (0-5) /lpf U Epithel Cells (Auto) >30 H (0-5) /lpf Urine Bacteria (Auto) 4+ H (Negative) Ur Random Sodium mmol/L Ur Random Urea Nitrogn Hepatitis C Ab (EIA) Hep C Ab Signal/Cutoff SARS-CoV-2, RNA, NAAT NEGATIVE (NEGATIVE) 11/05/22 11/05/22 11/05/22 Range/Units 22:14 22:14 22:14 WBC (4.8-10.8) K/ul RBC (3.93-5.22) M/uL Hgb (12.0-16.0) g/dl Hct (34.1-44.9) % MCV (80.0-100.0) fL MCH (25.0-34.0) pg MCHC (32.0-36.0) g/dL RDW Std Deviation (36.4-46.3) fL RDW Coeff of Marian (11.5-14.5) % Plt Count (130-400) K/uL MPV (9.4-12.3) fL Immature Gran % (Auto) % Neut % (Auto) % Lymph % (Auto) % [place] % (Auto) % Eos % (Auto) % Baso % (Auto) % Neut # (Auto) (1.4-6.5) K/uL Lymph # (Auto) (1.2-3.4) K/uL [place] # (Auto) (0.24-0.82) K/uL Eos # (Auto) (0-0.50) K/uL Baso # (Auto) (0-0.2) K/uL Immature Gran # (Auto) (0.00-0.02) K/uL Sodium 138 (136-145) mmol/L Potassium 5.1 (3.5-5.1) mmol/L Chloride 107 (98-107) mmol/L Carbon Dioxide 21 (21-32) mmol/L Anion Gap 10 (3-11) BUN 89 H (6-23) mg/dl Creatinine 3.28 H (0.6-1.2) mg/dl Est Cr Clr Drug Dosing 21.2 ml/min Est GFR ( Amer) 15.1 ml/min Est GFR (Non-Af Amer) 13.0 ml/min BUN/Creatinine Ratio 27.1 H (10-20) Glucose 369 H* (70-99(Fasting)) mg/dl POC Glucose (70-99) mg/dl Calcium 9.5 (8.5-10.1) mg/dl Phosphorus 4.9 (2.5-4.9) mg/dl Magnesium 1.6 L (1.7-2.4) mg/dl Iron (35-150) mcg/dl TIBC (250-450) mcg/dl Unsaturated IBC (155-355) mcg/dl Transferrin % Sat (15-50) % Ferritin (8-388) ng/ml Total Bilirubin 0.3 (0.2-1.0) mg/dl AST 10 L (13-39) U/L ALT 9 (7-52) U/L Alkaline Phosphatase 118 H (34-104) U/L Total Creatine Kinase 50 (26-192) U/L Total Protein 7.4 (6.0-8.3) gm/dl Albumin 3.5 (3.4-5.0) gm/dl Globulin 3.9 (2.5-4.0) gm/dl Albumin/Globulin Ratio 0.9 (0.9-2) Vitamin B12 (180-914) pg/ml 25-OH Vitamin D Total (30-100) ng/ml Folate (>5.38) ng/ml Urine Color Urine Appearance (Clear) Urine pH (4.5-7.5) Ur Specific [place] (1.000-1.030) Urine Protein (Negative) Urine Glucose (UA) (Negative) Urine Ketones (Negative) Urine Blood (Negative) Urine Nitrite (Negative) Urine Bilirubin (Negative) Urine Urobilinogen (Negative) Ur Leukocyte Esterase (Negative) Urine WBC (Auto) (0-5) /hpf Urine RBC (Auto) (0-4) /hpf U Hyaline Cast (Auto) (0-5) /lpf U Epithel Cells (Auto) (0-5) /lpf Urine Bacteria (Auto) (Negative) Ur Random Sodium mmol/L Ur Random Urea Nitrogn Hepatitis C Ab (EIA) Pending Hep C Ab Signal/Cutoff Pending SARS-CoV-2, RNA, NAAT (NEGATIVE) 11/05/22 Range/Units 22:14 WBC 8.41 (4.8-10.8) K/ul RBC 2.93 L (3.93-5.22) M/uL Hgb 9.7 L (12.0-16.0) g/dl Hct 28.2 L (34.1-44.9) % MCV 96.2 (80.0-100.0) fL MCH 33.1 (25.0-34.0) pg MCHC 34.4 (32.0-36.0) g/dL RDW Std Deviation 50.6 H (36.4-46.3) fL RDW Coeff of Marian 14.6 H (11.5-14.5) % Plt Count 284 (130-400) K/uL MPV 11.5 (9.4-12.3) fL Immature Gran % (Auto) 1.4 % Neut % (Auto) 67.9 % Lymph % (Auto) 18.2 % [place] % (Auto) 7.6 % Eos % (Auto) 4.2 % Baso % (Auto) 0.7 % Neut # (Auto) 5.71 (1.4-6.5) K/uL Lymph # (Auto) 1.53 (1.2-3.4) K/uL [place] # (Auto) 0.64 (0.24-0.82) K/uL Eos # (Auto) 0.35 (0-0.50) K/uL Baso # (Auto) 0.06 (0-0.2) K/uL Immature Gran # (Auto) 0.12 H (0.00-0.02) K/uL Sodium (136-145) mmol/L Potassium (3.5-5.1) mmol/L Chloride (98-107) mmol/L Carbon Dioxide (21-32) mmol/L Anion Gap (3-11) BUN (6-23) mg/dl Creatinine (0.6-1.2) mg/dl Est Cr Clr Drug Dosing ml/min Est GFR ( Amer) ml/min Est GFR (Non-Af Amer) ml/min BUN/Creatinine Ratio (10-20) Glucose (70-99(Fasting)) mg/dl POC Glucose (70-99) mg/dl Calcium (8.5-10.1) mg/dl Phosphorus (2.5-4.9) mg/dl Magnesium (1.7-2.4) mg/dl Iron (35-150) mcg/dl TIBC (250-450) mcg/dl Unsaturated IBC (155-355) mcg/dl Transferrin % Sat (15-50) % Ferritin (8-388) ng/ml Total Bilirubin (0.2-1.0) mg/dl AST (13-39) U/L ALT (7-52) U/L Alkaline Phosphatase (34-104) U/L Total Creatine Kinase (26-192) U/L Total Protein (6.0-8.3) gm/dl Albumin (3.4-5.0) gm/dl Globulin (2.5-4.0) gm/dl Albumin/Globulin Ratio (0.9-2) Vitamin B12 (180-914) pg/ml 25-OH Vitamin D Total (30-100) ng/ml Folate (>5.38) ng/ml Urine Color Urine Appearance (Clear) Urine pH (4.5-7.5) Ur Specific [place] (1.000-1.030) Urine Protein (Negative) Urine Glucose (UA) (Negative) Urine Ketones (Negative) Urine Blood (Negative) Urine Nitrite (Negative) Urine Bilirubin (Negative) Urine Urobilinogen (Negative) Ur Leukocyte Esterase (Negative) Urine WBC (Auto) (0-5) /hpf Urine RBC (Auto) (0-4) /hpf U Hyaline Cast (Auto) (0-5) /lpf U Epithel Cells (Auto) (0-5) /lpf Urine Bacteria (Auto) (Negative) Ur Random Sodium mmol/L Ur Random Urea Nitrogn Hepatitis C Ab (EIA) Hep C Ab Signal/Cutoff SARS-CoV-2, RNA, NAAT (NEGATIVE) Diagnostic Findings Renal Ultrasound 11/06/22 02:13 RENAL ULTRASOUND HISTORY: Acute on chronic kidney disease. COMPARISON: Abdomen and pelvis CT 07/17/2017. FINDINGS: Right kidney: 9.2 cm. No hydronephrosis. Moderate cortical thinning with increased cortical echogenicity. Left kidney: 11.7 cm. No hydronephrosis. Moderate cortical thinning with increased cortical echogenicity. Left kidney is partially obscured by overlying bowel gas. Bladder: Not identified. IMPRESSION: 1. No hydronephrosis. 2. Moderate bilateral cortical renal thinning with increased cortical ech ogenicity suggestive of medical renal disease. ACT 112: Negative or not required by law. Electronically signed by: Dioni Cowart M.D. 11/06/2022 7:22 AM PG Care Time/CCT Total # of Minutes Spent Total Time Spent with Patient: Total time spent is greater than 50% in coordination of care (as documented) at patient's floor/unit and/or counseling patient: Coding Level of Care Code None Diagnoses JEANIE (acute kidney injury) N17.9 Acute UTI (urinary tract infection) N39.0 Hyperglycemia R73.9 Hyperlipidemia E78.5 Hypertension I10 Hypomagnesemia E83.42 Hyperparathyroidism E21.3
[2022-11-06] MEDS: MAGNESIUM SULFATE / D5W 1 GM/100 ML BAG IV SCH ×2 (08:42→11:30)
[2022-11-06] MEDS ORDERED: LANTUS PER UNIT CHARGE SQ SCH (09:00)
--- NOTE | 2022-11-06 09:04 | Nephrology Consultation ---
Date of Consultation November 06, 2022 Assessment & Plan (1) JEANIE (acute kidney injury): * Cr improved from 3.28 to 2.89 following 1 L LR * Patient remains clinically volume contracted this am * Will provide gentle hydration w/ 0.9NS * Monitor PRP, UO (2) Chronic kidney disease, stage 4 (severe): * CKD stage G4/A3 (advanced impairment) w/ baseline Cr 2.0. She has a h/o clear cell CA of the kidney and has undergone a partial R nephrectomy 2016 (3) Acute UTI (urinary tract infection): * Patient w/ urinary symptoms and UA suggestive of cystitis - on empiric Rocephin therapy (4) Hypertension: * Holding Enalapril and Furosemide due to dehydration/JEANIE * BP remains acceptable - will monitor History of Present Illness Reason for Consultation: JEANIE/CKD Attending Physician: Amanda Turner MD History of Present Illness Ms. Alonso is a 77 year old white female who is seen at the request of the hospitalist service for evaluation of JEANIE/CKD. Medical records in the EMR were reviewed today and are summarized as follows: Ms. Alonso has CKD stage G4/A3 (advanced impairment) w/ baseline Cr 2.0. She has a h/o clear cell CA of the kidney and has undergone a partial R nephrectomy 2017. Her medical history is also significant for obesity, spinal stenosis, AODM, HTN and bullous pemphigoid. Ms. Alonso reports that she has chronic LE edema. Recently this worsened to the point that she had tense edema. Her PCP increased her Furosemide to 40 mg two tablets daily for 5 days. She experienced significant diuresis and then had laboratory studies performed. Labs from [facility] revealed Cr 3.74, K 5.9. Ms. Alonso was then referred to [facility] for admission. At the time of admission, she c/o dysuria. Urinalysis was suggestive of cystitis. Rocephin IV was administered and patient was admitted for IV hydration Allergies Allergy/AdvReac Type Severity Reaction Status Date / Time adhesive Allergy Unknown RASH, Verified 11/06/22 00:15 BLISTERS. PAPER TAKE IS OK mupirocin Allergy Unknown OINTMENT Verified 11/06/22 00:15 CAUSED RASH, HIVES AND ITCHING YORDY CREAM Allergy Unknown n/v Uncoded 11/06/22 00:15 Home Medications Medication Instructions Recorded Confirmed Type docusate sodium 100 mg tablet 100 mg PO BID PRN Anxiety 06/24/19 11/06/22 History gabapentin 300 mg capsule 300 mg PO TID 06/24/19 11/05/22 History lorazepam 0.5 mg tablet 0.5 mg PO BID 06/24/19 11/06/22 History pravastatin 40 mg tablet 40 mg PO HS 06/24/19 11/05/22 History blood-glucose meter #1 ea 07/26/20 11/06/22 History lancets 33 gauge (BD Ultra Fine #100 ea 07/26/20 11/06/22 History Lancets) pen needle, diabetic 31 gauge x #1,200 ea 10/05/20 11/06/22 History 5/16" (Easy Comfort Pen [place]) insulin lispro 200 unit/mL (3 mL) 50 unit (0.25 mL) subcut DAILY #24 02/08/21 11/06/22 Rx subcutaneous pen (Humalog KwikPen mL U-200 Insulin) folic acid 1 mg tablet 2 mg PO DAILY 03/05/21 11/06/22 History enalapril maleate 20 mg tablet 20 mg PO BID 07/17/21 11/05/22 History allopurinol 100 mg tablet 100 mg PO QAM 02/18/22 11/06/22 History liraglutide 0.6 mg/0.1 mL (18 mg/3 See Rx Instructions subcut 06/24/22 11/05/22 Rx mL) subcutaneous pen injector .COMPLEX #6 mL (Victoza 2-Lazaro) carvedilol 25 mg tablet 50 mg PO BID 11/05/22 11/05/22 History acetaminophen 500 mg tablet 500 mg PO QID PRN Pain 11/06/22 11/06/22 History (Tylenol Extra Strength) acetaminophen 650 mg 650 mg PO Q8H PRN Pain 11/06/22 11/06/22 History tablet,extended release furosemide 40 mg tablet 80 mg PO QAM 11/06/22 11/06/22 History pantoprazole 40 mg tablet,delayed 40 mg PO QAM 11/06/22 11/06/22 History release Patient History Medical History Bullous pemphigoid Clear cell carcinoma of kidney Diabetes mellitus type 2, uncontrolled Diabetic nephropathy Hyperlipidemia Hypertension Obesity Peripheral neuropathy Renal cell carcinoma of right kidney Surgical History H/O partial nephrectomy H/O Spinal surgery H/O: hysterectomy Family History Father Cancer Other Diabetes Social History Smoking Status: Never smoker Second Hand Exposure: No; Do You Dip or Chew Tobacco: No; Hx Alcohol Use: No Hx Substance Use: No Preferred Language: Hebrew Communication Ability: Effective Seismograph Computer Required: No Beliefs That Will Affect Care: None marital status details: Current Living Situation: Alone Current Living Situation Comment: house current occupational status: retired Other Information That Helps Us Care for You: No Feels Safe at Home: Yes Safety Concerns: Feels Safe At This Time Assistive Devices: Cane Assistive Devices Comment: 4 point cane Review of Systems Constitutional: no fever Eyes: no problem reported Ear, Nose, Mouth, Throat: no problem reported Respiratory: no cough and no dyspnea Cardiovascular: no chest pain Gastrointestinal: no abdominal pain, no vomiting and no diarrhea/loose stools Genitourinary: + dysuria Physical Exam Constitutional: not in distress Eyes: PERRL, conjunctivae normal, anicteric sclerae ENMT: Mouth: + dry oral mucous membranes Neck: trachea midline, no thyromegaly Respiratory: normal respiratory effort, lungs clear to auscultation Cardiovascular: RRR, no murmur, no edema Gastrointestinal (Abdomen): normal bowel sounds, soft, nontender, no hepatosplenomegaly Skin: + turgor decreased Neurologic: awake Speech / Cognition: normal speech and normal cognition Results & Data ([facility]) Vital Signs (Past 12 Hours) Vital Signs Temp Pulse Pulse Resp BP BP BP 11/06/22 07:56 36.5 C 67 19 133/74 11/06/22 04:03 36.5 C 73 18 124/60 11/06/22 02:44 36.5 C 73 16 161/79 H 11/06/22 01:49 68 18 178/74 H 11/06/22 01:30 65 18 11/06/22 01:01 67 20 11/06/22 01:01 173/62 H 11/06/22 01:00 66 21 11/06/22 00:30 70 17 11/06/22 00:00 71 23 11/06/22 00:00 156/106 H 11/05/22 23:30 69 28 H 11/05/22 23:01 160/55 H 11/05/22 23:01 67 16 11/05/22 23:00 65 16 11/05/22 22:30 66 17 11/05/22 22:12 71 17 11/05/22 21:39 36.3 C L 68 17 185/69 H Pulse Ox O2 Del Method 11/06/22 07:56 98 Room Air 11/06/22 04:03 95 Room Air 11/06/22 02:44 97 Room Air 11/06/22 01:49 98 Room Air 11/06/22 01:30 98 11/06/22 01:01 97 11/06/22 01:01 11/06/22 01:00 98 11/06/22 00:30 98 11/06/22 00:00 98 11/06/22 00:00 11/05/22 23:30 98 11/05/22 23:01 11/05/22 23:01 98 11/05/22 23:00 99 11/05/22 22:30 100 11/05/22 22:12 99 11/05/22 21:39 97 Room Air Laboratory Results Laboratory Tests 04/10/20 11/05/22 11/05/22 00:00 22:14 22:14 WBC 8.41 Hgb 9.7 L Hct 28.2 L Plt Count 284 Sodium 138 Potassium 5.1 Chloride 107 Carbon Dioxide 21 BUN 89 H Creatinine 3.28 H Glucose 369 H* Calcium 9.5 Phosphorus Magnesium Albumin 3.5 Urine Color Urine Appearance Urine pH Ur Specific [place] Urine Protein Urine Glucose (UA) Urine Blood Urine Nitrite Ur Leukocyte Esterase Urine WBC (Auto) Urine RBC (Auto) Ur Random Microalbumin 966.9 H 11/05/22 11/05/22 22:14 Unknown WBC Hgb Hct Plt Count Sodium Potassium Chloride Carbon Dioxide BUN Creatinine Glucose Calcium Phosphorus 4.9 Magnesium 1.6 L Albumin Urine Color Yellow Urine Appearance Turbid A Urine pH 5.0 Ur Specific [place] 1.014 Urine Protein 2+ H Urine Glucose (UA) 2+ H Urine Blood 2+ H Urine Nitrite Positive A Ur Leukocyte Esterase 2+ H Urine WBC (Auto) >30 H Urine RBC (Auto) 0-4 Ur Random Microalbumin Diagnostic Findings 11/05/22 Renal US: Right kidney: 9.2 cm. No hydronephrosis. Moderate cortical thinning with increased cortical echogenicity. Left kidney: 11.7 cm. No hydronephrosis. Moderate cortical thinning with increased cortical echogenicity. Left kidney is partially obscured by overlying bowel gas. Bladder: Not identified. PG Care Time/CCT Total # of Minutes Spent Total Time Spent with Patient: Total time spent is greater than 50% in coordination of care (as documented) at patient's floor/unit and/or counseling patient: Coding Level of Care Code INP/OBS CONSULT LVL 5, 80 MIN Diagnoses JEANIE (acute kidney injury) N17.9 Chronic kidney disease, stage 4 (severe) N18.4 Acute UTI (urinary tract infection) N39.0 Hypertension I10
[2022-11-06] MEDS ORDERED: PHARMACY GLYCEMIC MGMT CONSULT PRN (09:09)
[2022-11-06 09:41] LABS: Hematocrit (blood only) 25.3 % (34.1-44.9); Hemoglobin 8.5 g/dl (12.0-16.0); Mean Corpuscular Hemoglobin 32.8 pg (25.0-34.0); Mean Corpuscular Hgb Conc 33.6 g/dL (32.0-36.0); Mean Corpuscular Volume 97.7 fL (80.0-100.0); Mean Platelet Volume 11.5 fL (9.4-12.3); Platelet Count 263 K/uL (130-400); RDW Coefficient of Variation 14.7 % (11.5-14.5); RDW Standard Deviation 53.2 fL (36.4-46.3); Red Blood Count 2.59 M/uL (3.93-5.22); White Blood Count 8.09 K/ul (4.8-10.8)
[2022-11-06 10:04] LABS: Albumin Globulin Ratio 0.9 (0.9-2); Albumin Level 3.1 gm/dl (3.4-5.0); BUN Creatinine Ratio 27.7 (10-20); Bilirubin,Total 0.3 mg/dl (0.2-1.0); Calcium 9.3 mg/dl (8.5-10.1); Creatinine Clr Calc Pharmacy 23.7 ml/min; Est GFR (African American) 17.6 ml/min; Est GFR (Non-African American) 15.2 ml/min; Globulin 3.3 gm/dl (2.5-4.0); Magnesium 1.6 mg/dl (1.7-2.4); Potassium 4.8 mmol/L (3.5-5.1); Total Protein 6.4 gm/dl (6.0-8.3)
[2022-11-06 10:19] LABS: Ferritin 146.7 ng/ml (8-388)
[2022-11-06 10:28] LABS: Vitamin B12 216 pg/ml (180-914)
[2022-11-06 10:30] LABS: Vitamin D, 25 Hydrox < 7.0 ng/ml (30-100)
[2022-11-06] MEDS ORDERED: CYANOCOBALAMIN 1000 MCG/ML VIAL IM ONE (12:40)
[2022-11-06] MEDS ORDERED: ERGOCALCIFEROL 50,000 UNITS 1250 MCG CAP PO SCH (13:00)
[2022-11-06] MEDS ORDERED: SODIUM CHLORIDE 0.9% 1000ML 1,000 ML IV SCH (13:30)
--- NOTE | 2022-11-06 14:15 | Pharmacy Report ---
Pharmacy Glycemic Short Note 2 - Date of Service November 06, 2022 - Glycemic Short BSG Results (Last 24 hours): 11/05/22 11/05/22 11/06/22 22:14 23:56 01:19 Glucose 369 H* POC Glucose 331 H* 245 H 11/06/22 11/06/22 11/06/22 03:40 07:53 08:42 Glucose 210 H POC Glucose 247 H 189 H 11/06/22 11:55 Glucose POC Glucose 180 H OUTPATIENT ANTIDIABETIC REGIMEN: * Lantus 20 units daily * Humalog 6-7 units prior to meals * the above regimen was found in a diabetes note prior to the start of Victoza ASSESSMENT: * Ms Alonso is a 77 y/o F with a PMH of T2DM who presents with JEANIE. Kidney function is improving currently. * BSG on admission was 331 mg/dL for which patient received 5 units of IV insulin and 6 units of SQ insulin. * Fasting today was 189 mg/dL. Pharmacy consulted after morning insulin given. * For Lantus, Lantus 25 units was order BID. Per outpatient records and notes from 2017 admission, will d/c this and initiate Lantus 20-25 units SQ qAM. * Novolog adjusted to weight-based stress of 1-2 as per previous admission. PLAN FOR INPATIENT GLYCEMIC CONTROL: * Hold outpatient oral diabetes medications * Basal insulin * Lantus 25 units SQ x 1 then 20-25 units SQ qAM * Bolus insulin * NovoLog per scale ACHS or Q6hrs while NPO * Goal Range: Low 110 mg/dL - High 140 mg/dL * Correction Factor: 25 mg/dL/unit * Nutritional / Prandial insulin per carb ratio of 1 unit per 7 grams CHO consumed
--- NOTE | 2022-11-06 15:07 | Ultrasound Report ---
ABDOMINAL ULTRASOUND, RIGHT UPPER QUADRANT HISTORY: R sided abdominal pain,JEANIE, weakness. COMPARISON: Abdomen and pelvis CT 07/17/2017. Outside hospital abdominal ultrasound 06/04/2019. FINDINGS: Pancreas: The pancreatic tail is obscured by overlying bowel gas. The remaining portions of the pancr eas are within normal limits. Liver: Unremarkable. Gallbladder: There are few small echogenic foci within the gallbladder suggestive of small stones. No gallbladder wall thickening. CBD: 5 mm. Right kidney: No hydronephrosis. The right kidney is echogenic and not well visualized IMPRESSION: 1. A few small echogenic foci within the gallbladder likely representing small stones. No gallbladder wall thickening. 2. Normal caliber common bile duct. 3. Echogenic/atrophic right kidney again noted. No hydronephrosis. ACT 112: Negative or not required by law. Electronically signed by: Dioni Cowart M.D. 11/06/2022 3:06 PM
[2022-11-06] MEDS: PRAVASTATIN SOD 40 MG TAB PO SCH (21:04)
[2022-11-06] MEDS: cefTRIAXone SODIUM 2,000 MG in DEXTROSE 5% 50 ML IV SCH (21:12)
[2022-11-07] MEDS: HEPARIN SOD 5,000 UNIT/0.5 ML VIAL SQ SCH ×3 (06:24→20:53)
[2022-11-07 06:55] LABS: Hematocrit (blood only) 24.1 % (34.1-44.9); Mean Corpuscular Hemoglobin 32.9 pg (25.0-34.0); Mean Corpuscular Hgb Conc 33.2 g/dL (32.0-36.0); Mean Corpuscular Volume 99.2 fL (80.0-100.0); Mean Platelet Volume 11.3 fL (9.4-12.3); Platelet Count 240 K/uL (130-400); RDW Coefficient of Variation 14.8 % (11.5-14.5); RDW Standard Deviation 54.4 fL (36.4-46.3); Red Blood Count 2.43 M/uL (3.93-5.22); White Blood Count 6.81 K/ul (4.8-10.8)
[2022-11-07 07:26] LABS: Albumin Level 2.9 gm/dl (3.4-5.0); BUN Creatinine Ratio 25.1 (10-20); Bilirubin,Total 0.3 mg/dl (0.2-1.0); Creatinine Clr Calc Pharmacy 23.8 ml/min; Est GFR (African American) 17.7 ml/min; Est GFR (Non-African American) 15.3 ml/min; Magnesium 1.9 mg/dl (1.7-2.4); Potassium 5.2 mmol/L (3.5-5.1); Total Protein 5.8 gm/dl (6.0-8.3)
--- NOTE | 2022-11-07 08:03 | Hospitalist Progress Note ---
Date of Service November 07, 2022 Assessment & Plan (1) JEANIE (acute kidney injury): Plan: 77yo female presents with JEANIE on CKD, possible UTI. Cr presently 3.28 with baseline Cr of appx 2. K =5.1, HCO3=21. Of note, patient with history of clear cell carcinoma s/p partial nephrectomy in June [address] Acevedo, maintained on enalapril typically (held given JEANIE) and had been having her Lasix increased to 80mg daily for R sided heart failure with LE edema Per oncall note, had labs reviewed from [facility] for routine labs w/ worsening kidney function/JEANIE, hyperkalemia, acute on chronic anemia and told to come to ER Per Dr Acevedo, Ms Alonso had increased fluid retention in September and diuretics increased/reported significant improvement/almost resolution of LE edema but then was only voiding small amounts (although frequently) JEANIE likely combination of increased diuretic use and UTI IVF on admit x 1L, continued additional IVF yesterday No increased LE edema, continue compression stockings/elevation. On room air Cr 3.28--> 2.87 (essentially unchanged currently) and discussion with Dr Robledo this morning and additional IVF NS @80cc/hr for today and overnight recommended K was 5.2 on am labs, dose of Lokelma 10mg provided of note, getting bananas on tray, changed to Low K diet Renal US w/o obstruction Urine cx w/ klebsiella --> transition to oral to complete course Vitamin D checked --> <7, ergocalciferol 50,000 weekly ordered (PTH now elevated to 616). Will need rx at d/c and f/u Continue to hold diuretics, avoid nephrotoxic agents/renally dose meds as able Monitor labs on repeat in am -- patient hopeful to go home tomorrow and will need f/u nephrology after discharge. (2) Acute UTI (urinary tract infection): Plan: UA suggestive of infection. Ceftriaxone IV on admit Urine cx Klebsiella, will transition to oral to complete course (renal dose) (3) Hyperglycemia: Plan: With history of DM, fairly well controlled with last AlbZ5F=6.1 on 06/12/22. BSG elevated upon arrival to 369. She was given 5u of IV insulin with improvement to 245, additional 7U SQ insulin A1c 7.8 Pharmacy consulted BSGs acceptable, last 151-179 F/u outpt w/ PCP Gabapentin reduced for neuropathy to 100mg TID -- will need to see function prior to d/c and make adjustments as needed to prevent weakness/worsening renal function also checked B12 level -- 216 -- borderline low, 1000mcg daily ordered (4) Hyperlipidemia: Plan: Chronic. Stable Continue Pravastatin (5) Hypertension: Plan: Elevated on admit, IVF provided for dehydration, currently 121/68 Holding lasix/enalapril Continues on carvedilol Monitor BP -- consider addition of amlodipine/hydralazine if needed (6) Hypomagnesemia: Plan: 1.6 -- I ordered 2gm IV replacement--> 1.9 on repeat (7) Hyperparathyroidism: Plan: PTH 328, Vit D 16 in May, to be on D2 supp - NOT TAKING SUPP Vit D <7, PTH now 616 Vit D replacement ordered, will need rx at d/c ??primary hyperparathyroidism as well given signficant elevation PTH to 616 -- messaged nephrolgoy for further eval but will need outpt f/u Of note, suspect elevated ALP from bone/Vit D def, however did report some R flank pain Renal US w/o evidence for hydronephrosis Check RUQ for further eval -- stones, but no acute jarett Abd pain improved w/ IVF/holding diuretics and tx UTI DVT proph- Heparin SQ while inpatient (8) Chronic kidney disease, stage 4 (severe): Plan: as above, Cr improved from admit however about the same IVF as above, monitor BMP in AM (9) Type 2 diabetes mellitus with diabetic neuropathy, with long-term current use of insulin: (10) Hyperkalemia: Plan: K 5.1, meds ordered, monitor on repeat had been getting bananas w/ trays, changed diet to LOW POTASSIUM. Info to be provided prior to d/c regarding such given CKD IV Plan continued inpatient stay hold diuretics/IVF abx for UTI, change to cephalosporin to complete course monitor labs on repeat PT/OT consulted-- evals pending Patient hopeful for d/c tomorrow Admission and Anticipated Discharge Date Admission Date: November 06, 2022 Supervising Physician Co-Signing Physician Notes PA Supervision Note: I did not personally see or examine the patient today, but I verified all arechiga points of ROBIN Drew's assessment and plan with the following exceptions/additions: None Subjective Patient evaluated this morning, states she is feeling better. Cr about the same, additional IVF ordered. Breathing stable on room air, no increased shortness of breath or increased LE edema. Improvement in PO appetite.Discussed changing to PO abx for this evening given urine culture. No further abdominal pain reported. Discussed elevated K/meds given. Inquired about banana/potassium rich foods/avoiding these. She notes they have been giving her bananas with her tray. Will alter diet to r eflect low K diet and encouraged avoidance of such at discharge. Daughter chuck updated by phone last evening, coming to visit with patient currently Hopefully dc in next 24 hours or so pending repeat labs w/ treatment. Review of Systems Review of Systems: All systems reviewed & are unremarkable except as noted in HPI & below Physical Exam Physical Exam: General: WN/WD obese female sitting up in bed, NAD, looking improved HEENT: head normocephalic, atraumatic, mm slightly dry, trachea midline without deviation Resp: diminished in the bases, no w/c/r, on room air CV: RRR, no m/r/g, 1+ b/l LE pitting edema, calves nontender GI: +BS, obese, soft, slight suprapubic fullness : no gamez MSK/Neuro: moves all extremities, no focal deficit Psych: AOX3, cooperative and pleasant Results & Data Results & Data ([facility]) Vital Signs (Past 12 Hours) Vital Signs Temp Pulse Pulse Pulse Resp BP BP 11/07/22 07:45 37 C 75 18 111/64 11/06/22 22:05 65 11/07/22 03:37 36.9 C 76 18 128/66 11/06/22 23:03 37 C 66 18 130/70 Pulse Ox O2 Del Method 11/07/22 07:45 95 Room Air 11/06/22 22:05 11/07/22 03:37 96 Room Air 11/06/22 23:03 97 Room Air Laboratory Results 11/07/22 11/07/22 11/07/22 Range/Units 11:22 07:45 06:24 WBC (4.8-10.8) K/ul RBC (3.93-5.22) M/uL Hgb (12.0-16.0) g/dl Hct (34.1-44.9) % MCV (80.0-100.0) fL MCH (25.0-34.0) pg MCHC (32.0-36.0) g/dL RDW Std Deviation (36.4-46.3) fL RDW Coeff of Marian (11.5-14.5) % Plt Count (130-400) K/uL MPV (9.4-12.3) fL Sodium (136-145) mmol/L Potassium (3.5-5.1) mmol/L Chloride (98-107) mmol/L Carbon Dioxide (21-32) mmol/L Anion Gap (3-11) BUN (6-23) mg/dl Creatinine (0.6-1.2) mg/dl Est Cr Clr Drug Dosing ml/min Est GFR ( Amer) ml/min Est GFR (Non-Af Amer) ml/min BUN/Creatinine Ratio (10-20) Glucose (70-99(Fasting)) mg/dl POC Glucose 179 H 151 H (70-99) mg/dl Estimat Average Glucose 177 mg/dl Hemoglobin A1c 7.8 H (4.5-5.6) % Calcium (8.5-10.1) mg/dl Magnesium (1.7-2.4) mg/dl Total Bilirubin (0.2-1.0) mg/dl Direct Bilirubin (0-0.2) mg/dl AST (13-39) U/L ALT (7-52) U/L Alkaline Phosphatase (34-104) U/L Total Protein (6.0-8.3) gm/dl Albumin (3.4-5.0) gm/dl Ur Random Urea Nitrogn mg/dL Hepatitis C Ab (EIA) (NON-REACTIVE) Hep C Ab Signal/Cutoff (<1.00) 11/07/22 11/07/22 11/06/22 Range/Units 06:24 06:24 Unknown WBC 6.81 (4.8-10.8) K/ul RBC 2.43 L (3.93-5.22) M/uL Hgb 8.0 L (12.0-16.0) g/dl Hct 24.1 L (34.1-44.9) % MCV 99.2 (80.0-100.0) fL MCH 32.9 (25.0-34.0) pg MCHC 33.2 (32.0-36.0) g/dL RDW Std Deviation 54.4 H (36.4-46.3) fL RDW Coeff of Marian 14.8 H (11.5-14.5) % Plt Count 240 (130-400) K/uL MPV 11.3 (9.4-12.3) fL Sodium 142 (136-145) mmol/L Potassium 5.2 H (3.5-5.1) mmol/L Chloride 114 H (98-107) mmol/L Carbon Dioxide 21 (21-32) mmol/L Anion Gap 7 (3-11) BUN 72 H (6-23) mg/dl Creatinine 2.87 H (0.6-1.2) mg/dl Est Cr Clr Drug Dosing 23.8 ml/min Est GFR ( Amer) 17.7 ml/min Est GFR (Non-Af Amer) 15.3 ml/min BUN/Creatinine Ratio 25.1 H (10-20) Glucose 148 H (70-99(Fasting)) mg/dl POC Glucose (70-99) mg/dl Estimat Average Glucose mg/dl Hemoglobin A1c (4.5-5.6) % Calcium 9.0 (8.5-10.1) mg/dl Magnesium 1.9 (1.7-2.4) mg/dl Total Bilirubin 0.3 (0.2-1.0) mg/dl Direct Bilirubin 0.0 (0-0.2) mg/dl AST 8 L (13-39) U/L ALT 7 (7-52) U/L Alkaline Phosphatase 87 (34-104) U/L Total Protein 5.8 L (6.0-8.3) gm/dl Albumin 2.9 L (3.4-5.0) gm/dl Ur Random Urea Nitrogn 598 mg/dL Hepatitis C Ab (EIA) (NON-REACTIVE) Hep C Ab Signal/Cutoff (<1.00) 11/06/22 11/06/22 11/05/22 Range/Units 20:00 16:34 22:14 WBC (4.8-10.8) K/ul RBC (3.93-5.22) M/uL Hgb (12.0-16.0) g/dl Hct (34.1-44.9) % MCV (80.0-100.0) fL MCH (25.0-34.0) pg MCHC (32.0-36.0) g/dL RDW Std Deviation (36.4-46.3) fL RDW Coeff of Marian (11.5-14.5) % Plt Count (130-400) K/uL MPV (9.4-12.3) fL Sodium (136-145) mmol/L Potassium (3.5-5.1) mmol/L Chloride (98-107) mmol/L Carbon Dioxide (21-32) mmol/L Anion Gap (3-11) BUN (6-23) mg/dl Creatinine (0.6-1.2) mg/dl Est Cr Clr Drug Dosing ml/min Est GFR ( Amer) ml/min Est GFR (Non-Af Amer) ml/min BUN/Creatinine Ratio (10-20) Glucose (70-99(Fasting)) mg/dl POC Glucose 256 H 161 H (70-99) mg/dl Estimat Average Glucose mg/dl Hemoglobin A1c (4.5-5.6) % Calcium (8.5-10.1) mg/dl Magnesium (1.7-2.4) mg/dl Total Bilirubin (0.2-1.0) mg/dl Direct Bilirubin (0-0.2) mg/dl AST (13-39) U/L ALT (7-52) U/L Alkaline Phosphatase (34-104) U/L Total Protein (6.0-8.3) gm/dl Albumin (3.4-5.0) gm/dl Ur Random Urea Nitrogn mg/dL Hepatitis C Ab (EIA) NON-REACTIVE (NON-REACTIVE) Hep C Ab Signal/Cutoff 0.04 (<1.00) Diagnostic Findings Gallbladder Ultrasound 11/06/22 09:53 ABDOMINAL ULTRASOUND, RIGHT UPPER QUADRANT HISTORY: R sided abdominal pain,JEANIE, weakness. COMPARISON: Abdomen and pelvis CT 07/17/2017. Outside hospital abdominal ultrasound 06/04/2019. FINDINGS: Pancreas: The pancreatic tail is obscured by overlying bowel gas. The remaining portions of the pancreas are within normal limits. Liver: Unremarkable. Gallbladder: There are few small echogenic foci within the gallbladder suggestive of small stones. No gallbladder wall thickening. CBD: 5 mm. Right kidney: No hydronephrosis. The right kidney is echogenic and not well visualized IMPRESSION: 1. A few small echogenic foci within the gallbladder likely representing small stones. No gallbladder wall thickening. 2. Normal caliber common bile duct. 3. Echogenic/atrophic right kidney again noted. No hydronephrosis. ACT 112: Negative or not required by law. Electronically signed by: Dioni Cowart M.D. 11/06/2022 3:06 PM PG Care Time/CCT Total # of Minutes Spent Total Time Spent with Patient: Total time spent is greater than 50% in coordination of care (as documented) at patient's floor/unit and/or counseling patient: Coding Level of Care Code 17500 SUB INP/OBS CARE 3/50MIN Diagnoses JEANIE (acute kidney injury) N17.9 Acute UTI (urinary tract infection) N39.0 Hyperglycemia R73.9 Hyperlipidemia E78.5 Hypertension I10 Hypomagnesemia E83.42 Hyperparathyroidism E21.3 Chronic kidney disease, stage 4 (severe) N18.4 Type 2 diabetes mellitus with diabetic neuropathy, with long-term current use of insulin E11.40; Z79.4 Hyperkalemia E87.5
[2022-11-07] MEDS ORDERED: SODIUM ZIRCONIUM CYCLOSILICATE 10 GM PACKET PO ONE (08:15)
[2022-11-07 08:33] LABS: Estimated Average Glucose 177 mg/dl; Hemoglobin A1C 7.8 % (4.5-5.6)
[2022-11-07] MEDS: allopurinoL 100 MG TAB PO SCH (08:36)
[2022-11-07] MEDS: PANTOprazole 40 MG TAB PO SCH (08:36)
[2022-11-07] MEDS: GABAPENTIN 100 MG CAP PO SCH ×3 (08:36→20:53)
[2022-11-07] MEDS: CYANOCOBALAMIN (B-12) 500 MCG TABLET PO SCH (08:37)
[2022-11-07] MEDS: FOLIC ACID 1 MG TAB PO SCH (08:37)
[2022-11-07] MEDS: carvediloL 25 MG TAB PO SCH ×2 (08:37→20:50)
[2022-11-07] MEDS: LANTUS PER UNIT CHARGE SQ SCH (08:43)
[2022-11-07] MEDS: LORazepam 0.5 MG TAB PO SCH ×2 (08:43→20:52)
[2022-11-07] MEDS: INSULIN ASPART PER UNIT SC SCH ×4 (08:44→21:12)
[2022-11-07] MEDS: SODIUM CHLORIDE 0.9% 500 ML IV SCH ×3 (08:48→20:52)
--- NOTE | 2022-11-07 09:04 | Nephrology Progress Note ---
Date of Service November 07, 2022 Assessment & Plan (1) JEANIE (acute kidney injury): Plan: * Kidney function is stable * Patient remains clinically volume contracted this am * Continue to hold Enalapril and Furosemide * Continue gentle hydration w/ 0.9NS * Monitor PRP, UO (2) Chronic kidney disease, stage 4 (severe): Plan: * CKD stage G4/A3 (advanced impairment) w/ baseline Cr 2.0. 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 Consider changing to oral PCN or quinolone (4) Hypertension: Plan: * Holding Enalapril and Furosemide due to dehydration/JEANIE * BP remains acceptable - will monitor Admission and Anticipated Discharge Date Admission Date: November 06, 2022 Subjective Ms. Alonso was evaluated in her hospital room this morning. She is tolerating IV hydration without dyspnea or worsening LE swelling. She voiced no new medical concerns. Review of Systems Constitutional: no fever Eyes: no problem reported Ear, Nose, Mouth, Throat: no problem reported Respiratory: no cough and no dyspnea Cardiovascular: no chest pain Gastrointestinal: no abdominal pain, no vomiting and no diarrhea/loose stools Genitourinary: no dysuria Physical Exam Constitutional: not in distress Eyes: PERRL, conjunctivae normal, anicteric sclerae ENMT: Mouth: + dry oral mucous membranes Neck: trachea midline, no thyromegaly Respiratory: normal respiratory effort, lungs clear to auscultation Cardiovascular: RRR, no murmur, no edema Gastrointestinal (Abdomen): normal bowel sounds, soft, nontender, no hepatosplenomegaly Skin: + turgor decreased Neurologic: awake Speech / Cognition: normal speech and normal cognition Results & Data ([facility]) Vital Signs (Past 12 Hours) Vital Signs Temp Pulse Pulse Pulse Resp BP BP 11/07/22 08:09 67 11/07/22 07:45 37 C 75 18 111/64 11/06/22 22:05 65 11/07/22 03:37 36.9 C 76 18 128/66 11/06/22 23:03 37 C 66 18 130/70 Pulse Ox O2 Del Method 11/07/22 08:09 11/07/22 07:45 95 Room Air 11/06/22 22:05 11/07/22 03:37 96 Room Air 11/06/22 23:03 97 Room Air Laboratory Results Laboratory Tests 11/05/22 11/07/22 11/07/22 23:50 06:24 06:24 WBC 6.81 Hgb 8.0 L Hct 24.1 L Plt Count 240 Sodium 142 Potassium 5.2 H Chloride 114 H Carbon Dioxide 21 BUN 72 H Creatinine 2.87 H Glucose 148 H SARS-CoV-2, RNA, NAAT NEGATIVE 11/05/22 Urine Culture: Urine Culture Preliminary 11/07/22-0655 Organism 1 Klebsiella pneumoniae Marcell Count >100,000 CFU/ml Sens Sensitivities to Follow Kleb pneum RX M.I.C. --- --------- Amox/Clav S <=8/4 Amp/Sul S <=8/4 Cefazolin S <=2 Cefepime S <=2 Ceftriaxone S <=1 Ciprofloxacin S <=0.25 Ertapenem S <=0.5 Gentamicin S <=4 Levofloxacin S <=0.5 Meropenem S <=1 Nitrofurantoin I 64 Tobramycin S <=4 Trimeth/Sulfa S <=2/38 Pip/Tazo S <=16 S = SENSITIVE I = INTERMEDIATE R = RESISTANT PG Care Time/CCT Total # of Minutes Spent Total Time Spent with Patient: Total time spent is greater than 50% in coordination of care (as documented) at patient's floor/unit and/or counseling patient: Coding Level of Care Code 92670 SUB INP/OBS CARE 3/50MIN Diagnoses JEANIE (acute kidney injury) N17.9 Chronic kidney disease, stage 4 (severe) N18.4 Acute UTI (urinary tract infection) N39.0 Hypertension I10
[2022-11-07 09:36] LABS: Urea Nitrogen, Random Urine 598 mg/dL
[2022-11-07] MEDS ORDERED: MICONAZOLE NITRATE POWDER 43 GM EXT PRN (15:49)
[2022-11-07] MEDS: cefTRIAXone SODIUM 2,000 MG in DEXTROSE 5% 50 ML IV SCH (20:51)
[2022-11-07] MEDS: ACETAMINOPHEN 500 MG TAB PO PRN (20:52)
[2022-11-07] MEDS: PRAVASTATIN SOD 40 MG TAB PO SCH (21:13)
[2022-11-08] MEDS: SODIUM CHLORIDE 0.9% 500 ML IV SCH ×2 (03:14→10:10)
[2022-11-08] MEDS: HEPARIN SOD 5,000 UNIT/0.5 ML VIAL SQ SCH ×2 (05:50→14:44)
[2022-11-08 06:05] LABS: Hematocrit (blood only) 23.7 % (34.1-44.9); Hemoglobin 7.8 g/dl (12.0-16.0); Mean Corpuscular Hemoglobin 32.9 pg (25.0-34.0); Mean Corpuscular Hgb Conc 32.9 g/dL (32.0-36.0); Mean Platelet Volume 11.2 fL (9.4-12.3); Platelet Count 225 K/uL (130-400); RDW Coefficient of Variation 14.9 % (11.5-14.5); RDW Standard Deviation 53.7 fL (36.4-46.3); Red Blood Count 2.37 M/uL (3.93-5.22); White Blood Count 6.22 K/ul (4.8-10.8)
[2022-11-08 06:28] LABS: BUN Creatinine Ratio 22.4 (10-20); Creatinine Clr Calc Pharmacy 23.2 ml/min; Est GFR (African American) 17.1 ml/min; Est GFR (Non-African American) 14.8 ml/min; Magnesium 1.8 mg/dl (1.7-2.4); Potassium 4.8 mmol/L (3.5-5.1)
--- NOTE | 2022-11-08 08:00 | Hospitalist Progress Note ---
Date of Service November 08, 2022 Assessment & Plan Admission and Anticipated Discharge Date Admission Date: November 06, 2022 Results & Data Results & Data ([place]) Vital Signs (Past 12 Hours) Vital Signs Temp Pulse Pulse Resp BP BP Pulse Ox 11/08/22 07:18 36.7 C 71 16 149/80 H 96 11/08/22 03:05 36.7 C 75 18 150/75 H 96 11/07/22 23:26 36.8 C 73 16 161/70 H 96 11/07/22 22:00 67 O2 Del Method 11/08/22 07:18 Room Air 11/08/22 03:05 Room Air 11/07/22 23:26 Room Air 11/07/22 22:00 Laboratory Results 11/08/22 11/08/22 11/08/22 Range/Units 07:46 05:42 05:42 WBC 6.22 (4.8-10.8) K/ul RBC 2.37 L (3.93-5.22) M/uL Hgb 7.8 L (12.0-16.0) g/dl Hct 23.7 L (34.1-44.9) % MCV 100.0 (80.0-100.0) fL MCH 32.9 (25.0-34.0) pg MCHC 32.9 (32.0-36.0) g/dL RDW Std Deviation 53.7 H (36.4-46.3) fL RDW Coeff of Marian 14.9 H (11.5-14.5) % Plt Count 225 (130-400) K/uL MPV 11.2 (9.4-12.3) fL Sodium 142 (136-145) mmol/L Potassium 4.8 (3.5-5.1) mmol/L Chloride 116 H (98-107) mmol/L Carbon Dioxide 21 (21-32) mmol/L Anion Gap 5 (3-11) BUN 66 H (6-23) mg/dl Creatinine 2.95 H (0.6-1.2) mg/dl Est Cr Clr Drug Dosing 23.2 ml/min Est GFR ( Amer) 17.1 ml/min Est GFR (Non-Af Amer) 14.8 ml/min BUN/Creatinine Ratio 22.4 H (10-20) Glucose 125 H (70-99(Fasting)) mg/dl POC Glucose 130 H (70-99) mg/dl Estimat Average Glucose mg/dl Hemoglobin A1c (4.5-5.6) % Calcium 9.0 (8.5-10.1) mg/dl Magnesium 1.8 (1.7-2.4) mg/dl Ur Random Urea Nitrogn mg/dL Hepatitis C Ab (EIA) (NON-REACTIVE) Hep C Ab Signal/Cutoff (<1.00) 11/07/22 11/07/22 11/07/22 Range/Units 20:13 16:19 11:22 WBC (4.8-10.8) K/ul RBC (3.93-5.22) M/uL Hgb (12.0-16.0) g/dl Hct (34.1-44.9) % MCV (80.0-100.0) fL MCH (25.0-34.0) pg MCHC (32.0-36.0) g/dL RDW Std Deviation (36.4-46.3) fL RDW Coeff of Marian (11.5-14.5) % Plt Count (130-400) K/uL MPV (9.4-12.3) fL Sodium (136-145) mmol/L Potassium (3.5-5.1) mmol/L Chloride (98-107) mmol/L Carbon Dioxide (21-32) mmol/L Anion Gap (3-11) BUN (6-23) mg/dl Creatinine (0.6-1.2) mg/dl Est Cr Clr Drug Dosing ml/min Est GFR ( Amer) ml/min Est GFR (Non-Af Amer) ml/min BUN/Creatinine Ratio (10-20) Glucose (70-99(Fasting)) mg/dl POC Glucose 123 H 129 H 179 H (70-99) mg/dl Estimat Average Glucose mg/dl Hemoglobin A1c (4.5-5.6) % Calcium (8.5-10.1) mg/dl Magnesium (1.7-2.4) mg/dl Ur Random Urea Nitrogn mg/dL Hepatitis C Ab (EIA) (NON-REACTIVE) Hep C Ab Signal/Cutoff (<1.00) 01/13/23 01/12/23 01/11/23 Range/Units 06:24 Unknown 22:14 WBC (4.8-10.8) K/ul RBC (3.93-5.22) M/uL Hgb (12.0-16.0) g/dl Hct (34.1-44.9) % MCV (80.0-100.0) fL MCH (25.0-34.0) pg MCHC (32.0-36.0) g/dL RDW Std Deviation (36.4-46.3) fL RDW Coeff of Marian (11.5-14.5) % Plt Count (130-400) K/uL MPV (9.4-12.3) fL Sodium (136-145) mmol/L Potassium (3.5-5.1) mmol/L Chloride (98-107) mmol/L Carbon Dioxide (21-32) mmol/L Anion Gap (3-11) BUN (6-23) mg/dl Creatinine (0.6-1.2) mg/dl Est Cr Clr Drug Dosing ml/min Est GFR ( Amer) ml/min Est GFR (Non-Af Amer) ml/min BUN/Creatinine Ratio (10-20) Glucose (70-99(Fasting)) mg/dl POC Glucose (70-99) mg/dl Estimat Average Glucose 177 mg/dl Hemoglobin A1c 7.8 H (4.5-5.6) % Calcium (8.5-10.1) mg/dl Magnesium (1.7-2.4) mg/dl Ur Random Urea Nitrogn 598 mg/dL Hepatitis C Ab (EIA) NON-REACTIVE (NON-REACTIVE) Hep C Ab Signal/Cutoff 0.04 (<1.00) PG Care Time/CCT Total # of Minutes Spent Total Time Spent with Patient: Total time spent is greater than 50% in coordination of care (as documented) at patient's floor/unit and/or counseling patient: Coding
[2022-11-08] MEDS: GABAPENTIN 100 MG CAP PO SCH ×2 (08:51→14:45)
[2022-11-08] MEDS: carvediloL 25 MG TAB PO SCH (08:51)
[2022-11-08] MEDS: FOLIC ACID 1 MG TAB PO SCH (08:52)
[2022-11-08] MEDS: CYANOCOBALAMIN (B-12) 500 MCG TABLET PO SCH (08:52)
[2022-11-08] MEDS: PANTOprazole 40 MG TAB PO SCH (08:52)
[2022-11-08] MEDS: allopurinoL 100 MG TAB PO SCH (08:52)
[2022-11-08] MEDS: INSULIN ASPART PER UNIT SC SCH ×2 (09:20→12:54)
[2022-11-08] MEDS: LANTUS PER UNIT CHARGE SQ SCH (09:21)
[2022-11-08] MEDS: LORazepam 0.5 MG TAB PO SCH (09:22)
[2022-11-08] MEDS: ACETAMINOPHEN 500 MG TAB PO PRN (09:32)
[2022-11-08 11:40] LABS: Lyme Ab IgM w/WB Rflx Negative (Negative)
[2022-11-08 12:39] LABS: Lyme Ab IgG w/WB Rflx Positive (Negative)
--- NOTE | 2022-11-08 12:56 | Discharge Summary ---
Date of Service November 08, 2022 Admission HPI Per Admitting Provider Charlene Alonso is a 77yo female with history of bullous pemphigoid, DM, HTN, HLP and prior clear cell RCC s/p partial nephrectomy presenting with worsening renal function. Patient had routine outpatient labs performed in the [facility] system which revealed worsening renal function, hyperkalemia and acute on chronic hyperkalemia (Cr 3.74, K=5.9 and HCO3=18, Pz=546, Abr=508). She was notified by Nephrology and instructed to come to the ER. Overall patient feels well. She denies fever, chills, chest pain, cough, SOB. She reports she is eating and drinking well at home and taking her medications. She does have a difficult time fully emptying her bladder and feels that she has had increased thirst and frequency of urination over the last several days. In the ER she is hypertensive, otherwise HD stable. ER Course: Ceftriaxone, Insulin 5u IV, 5u SQ, NSS Admission Exam Per Admitting Provider General: patient resting comfortably, NAD, non-toxic in appearance, AA&O x 4 Skin: warm, dry, intact, no rashes or lesions HEENT: NC/AT, PERRL, EOMI, anicteric sclera, conjunctiva without injection, external ear normal to inspection and nontender, nares patent, moist mucus membranes, dentition intact, no oropharyngeal lesions, neck supple, trachea midline, no LAD, no thyromegaly, no JVD Heart: +S1/S2, regular, no m/r/g Lungs: equal air entry bilaterally, no rales/rhonchi/wheezes Abd: +BS, soft, NT/ND, no masses/organomegaly/ascites Ext: warm, 2+ pulses in UE/LE bilaterally, no clubbing/cyanosis or edema Neuro: nonfocal, patient AA&O x 4, speech intact, no facial droop, moving all extremities on command with equal strength 5/5 Principal Diagnosis JEANIE, UTI Discharge Exam General: WN/WD obese female NAD, looking improved sitting up in recliner, asking about when she can go home HEENT: head normocephalic, atraumatic, mm slightly dry, trachea midline without deviation Resp: diminished in the bases, no w/c/r, on room air CV: RRR, no m/r/g, 1+ b/l LE pitting edema, calves nontender GI: +BS, obese, soft, slight suprapubic fullness resolved : no gamez MSK/Neuro: moves all extremities, no focal deficit Psych: AOX3, cooperative and pleasant Discharge Data Allergies Allergy/AdvReac Type Severity Reaction Status Date / Time adhesive Allergy Unknown RASH, Verified 11/06/22 00:15 BLISTERS. PAPER TAKE IS OK mupirocin Allergy Unknown OINTMENT Verified 11/06/22 00:15 CAUSED RASH, HIVES AND ITCHING YORDY CREAM Allergy Unknown n/v Uncoded 11/06/22 00:15 Consultations 11/06/22 00:15 ED Decision to Admit Stat 11/06/22 02:13 Consult Nephrology Routine Ordered Studies Renal Ultrasound 11/06/22 02:13 RENAL ULTRASOUND HISTORY: Acute on chronic kidney disease. COMPARISON: Abdomen and pelvis CT 07/17/2017. FINDINGS: Right kidney: 9.2 cm. No hydronephrosis. Moderate cortical thinning with increased cortical echogenicity. Left kidney: 11.7 cm. No hydronephrosis. Moderate cortical thinning with increased cortical echogenicity. Left kidney is partially obscured by overlying bowel gas. Bladder: Not identified. IMPRESSION: 1. No hydronephrosis. 2. Moderate bilateral cortical renal thinning with increased cortical echogenicity suggestive of medical renal disease. ACT 112: Negative or not required by law. Electronically signed by: Dioni Cowart M.D. 11/06/2022 7:22 AM Gallbladder Ultrasound 11/06/22 09:53 ABDOMINAL ULTRASOUND, RIGHT UPPER QUADRANT HISTORY: R sided abdominal pain,JEANIE, weakness. COMPARISON: Abdomen and pelvis CT 07/17/2017. Outside hospital abdominal ultrasound 06/04/2019. FINDINGS: Pancreas: The pancreatic tail is obscured by overlying bowel gas. The remaining portions of the pancreas are within normal limits. Liver: Unremarkable. Gallbladder: There are few small echogenic foci within the gallbladder suggestive of small stones. No gallbladder wall thickening. CBD: 5 mm. Right kidney: No hydronephrosis. The right kidney is echogenic and not well visualized IMPRESSION: 1. A few small echogenic foci within the gallbladder likely representing small stones. No gallbladder wall thickening. 2. Normal caliber common bile duct. 3. Echogenic/atrophic right kidney again noted. No hydronephrosis. ACT 112: Negative or not required by law. Electronically signed by: Dioni Cowart M.D. 11/06/2022 3:06 PM Hospital Course (1) JEANIE (acute kidney injury): 77yo female presents with JEANIE on CKD, possible UTI. Cr presently 3.28 (3.[address] [facility]) with baseline Cr ~ 2 previously. K =5.1, HCO3=21. Of note, patient with history of clear cell carcinoma s/p partial nephrectomy in June [address] Acevedo, maintained on enalapril typically (held given JEANIE) and had been having her Lasix increased to 80mg daily for R sided heart failure with LE edema Per Dr Acevedo, Ms Alonso had increased fluid retention in September and diuretic s increased/reported significant improvement/almost resolution of LE edema but then was only voiding small amounts (although frequently) JEANIE likely combination of increased diuretic use and UTI Renal US w/o obstruction IVF on admit x 1L, additional IVF provided, held further IVF AM 11/[address] 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 Tx UTI as below Hyperkalemia day prior, 2nd to bananas given w/ trays, changed to low K diet/dose of lokelma 10mg po x 1, repeat K 4.8 and to avoid high K diet as discussed Cr stable to 2.8-2.9 prior to d/c, making good amount of urine. Suspect patient w/ higher new baseline Cr from diuretic use from significant volume overload --> Discussed with Dr Acevedo and he notes her swelling compared to when seen in the office has SIGNIFICANTLY improved and decision to have patient continue to hold her enalapril and Lasix at discharge and have labs drawn next Thursday/Thursday and see him in the office on for close follow up Rx for repeat lasbs provided for patient, results to be forwarded to Dr Acevedo (2) Acute UTI (urinary tract infection): Urine cx w/ klebsiella, placed on Ceftriaxone on admit, dc on cephalexin to complete course for UTI, renally dosed (3) Hyperglycemia: With history of DM, fairly well controlled with last VcvP4Q=1.1 on 06/12/22. BSG elevated upon arrival to [facility], likely in setting of infection A1c 7.8 Pharmacy consulted, BSGs remained stable F/u PCP outpatient Also, Gabapentin reduced for neuropathy to 100mg TID -- reduced dose at d/c. (4) Hyperparathyroidism: ?CKD/VIt D deficiency PTH 328, Vit D 16 in May, to be on D2 supp - NOT TAKING SUPP Vit D <7, PTH now 616 Vit D replacement ordered, will need rx at d/c ??primary hyperparathyroidism as well given signficant elevation PTH to 616 -- messaged nephrology for further eval but will need outpt f/u -- per Dr Robledo, believed PTH elevation strictly from Vit D deficiency Would rec repeating labs once Vit D replaced Of note, suspect elevated ALP from bone/Vit D def, however did report some R flank pain intiially Renal US w/o evidence for hydronephrosis Checked RUQ for further eval -- stones, but no acute jarett. No further abdominal pain reported w/ tx UTI. ALP normalized on repeat and w/ Vit D replacement (5) Hypertension: Elevated on admit, IVF provided for dehydration, BP stable off diuretics Continue to hold diuretics/enalapril at discharge until repeat labs/seen by Dr Acevedo in follow up Remains on carvedilol Consider adding amlodipine in follow up if pressures elevated (6) Hyperlipidemia: Chronic. Stable Continued Pravastatin (7) Hypomagnesemia: 1.6, replacement ordered, stable on repeat x 2 (8) Chronic kidney disease, stage 4 (severe): as above, Cr improved from admit however about the same -- see above, may be new baseline. Close f/u Nephrology next week with repeat labs (9) Type 2 diabetes mellitus with diabetic neuropathy, with long-term current use of insulin: As above under hyperglycemia (10) Hyperkalemia: K 5.1, meds ordered , resovled on repeat had been getting bananas w/ trays, changed diet to LOW POTASSIUM. 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 arthritis pains, 1st degree AV block on monitor never treated, no rash IgG +, IgM negative, WB pending empiric doxy BID x 14 days and f/u outpt PCP for WB (12) B12 deficiency: B12 checked given anemia/borderline MCV and reported neuropathy at baseline on gabapentin Hgb stable on repeat on continuous IVF, no bleeding reported B12 level low normal at 216 -- 1000mcg daily ordered and continued at discharge PT/OT consulted -- rehab entertained at [facility], [facility] -- patient wanting to go home, son available to come and get her and CM arranged for HH therapy DVT proph- Heparin SQ while inpatient I certify that this patient is under my care and that I, or a physicians neurology physician assistant working with me, had a face to-face encounter that meets the home health [id number] encounter requirements with this patient. The encounter with the patient was in whole, or in part, for the following medical condition, which is the primary reason for home health care (list medical condition): JEANIE on CKD I certify that, based on my findings, the following services are medically necessary home health services: My clinical findings support the need for the above services because: OT Assess ADL Status and Restore Function w ADLs PT Assessment for Endurance / Balance / Strength PT Eval for Safety and Mobility PT Eval for Safety, Gait Training, Assistive Devices PT Gait and Balance Training, Strengthening and Safety Skilled Nsg Assessment Further, I certify that my clinical findings support that this patient is homebound (i.e. absences from home require considerable and taxing effort and are for medical reasons or adventism services or infrequently or of short duration when for other reasons) because: Supportive Aid - Walker Transportation Assistance/Unable to Leave Home Unassisted Certification for Home Health Services: Based on the above findings, I certify that this patient is confined to the home and needs intermittent half-way care, physical therapy and/or speech therapy or continues to need occupational therapy. The patient is under my care, and I have initiated the establishment of the plan of care. This patient will be followed by a physician who will periodically review the plan of care. Total Time Total Time Spent Total Time Spent (In Minutes): 50 Discharge Plan Discharge Items Patient Disposition: Home - Home Health Services Reason For Visit: JEANIE ON CKD Discharge Diagnosis: You have been hospitalized for an acute medical problem. During your stay at [facility], we have made an effort to correct the problem that brought you to the hospital while keeping you as comfortable as possible. Medications were used to bring your condition under control and your discharge instructions will include directions for any medications you should take after leaving the hospital. Please make sure you see your Primary Care Provider as part of your follow up plan. Activity: As commented below Non-emergency contact: Primary Care Provider and Poultry Hatchery Man Call non-emergency contact if: you have any medication questions, your symptoms worsen and your pain is concerning for you Follow-up/Referrals: Femi Acevedo DO [Physician] - (PLEASE CALL DR ACEVEDO'S OFFICE TO SCHEDULE A DISCHARGE FOLLOW-UP APPOINTMENT FOR NOVEMBER 13.) Glen Sparrow D.O. [Primary Care Provider] - (PLEASE CALL YOUR PRIMARY CARE PROVIDERTO SCHEDULE A DISCHARGE FOLLOW-UP APPOINTMENT WITHIN 7-10 DAYS) Diet: Carb Consistent or DM2 and Heart Healthy Ambulatory Orders: Basic Metabolic Panel (Routine) Timeframe: 20221105 Location: Determined by Patient Ordered By: Najma Velásquez Attending Provider Instructions: You have been hospitalized and found to have an acute kidney injury and urinary tract infection. Your diuretics were held and you were given IV fluids and your numbers have come down but remained stable. I discussed with Dr Acevedo, and he would like you to continue to HOLD your lasix and enalapril and have repeat labs on Thursday of next week and have follow up appointment with him on of next week for close monitoring. Your baseline kidney function may now be higher than it was, but is not as high as it was when you first came in. We have treated you with IV antibiotics for urinary tract infection and have sent a prescription for Augmentin to complete course at discharge. Your VITAMIN D level was LOW, you will be on weekly replacement and should follow up with Dr Acevedo regarding ongoing treatment. I also checked labs for anemia, and your B12 was low. You should also continue daily supplementation with such. Given your kidney function, your GABAPENTIN was REDUCED TO 100MG THREE TIMES DAILY. This should work as effective and dosing is based on how well your kidneys function out these things. Please picker box operator new prescription for this as I sent in and do not take your 300mg doses. We also checked for Lyme, and Doxycycline twice daily has been sent to cover empirically while western blot testing is pending. Please make sure to take with a glass of water. You were evaluated by therapy and given not going to [facility], we have arranged for home health after discharge to help work on getting your strength. Please follow up with your primary care in the next 7-10 days. Please follow up with Dr Acevedo as discussed. Please return to the ER with any worsening symptoms. It has been a pleasure being a part of the medical team providing for you while you have been in the hospital. Take care! Pending Studies at Discharge: Yes Studies:: Western Blot Stand-Alone Forms: My [facility] CicerOOs, Smoking Cessation Medications and DC Order Prescriptions: New gabapentin 100 mg Capsule 100 mg PO TID Qty: 90 0RF cyanocobalamin (vitamin B-12) 500 mcg Tablet 1,000 mcg PO QAM Qty: 30 0RF ergocalciferol (vitamin D2) 1,250 mcg (50,000 unit) Capsule 50,000 unit PO Q7D@1300 Qty: 8 0RF amoxicillin-pot clavulanate 500-125 mg tablet 1 tab PO BID 3 Days Qty: 6 0RF doxycycline hyclate 100 mg capsule 100 mg PO BID 14 Days Qty: 28 0RF Continued Humalog KwikPen Insulin 200 unit/mL (3 mL) insulin pen 50 unit subcut DAILY Qty: 24 3RF Rx Instructions: 6 units in the morning, 12u afternoon, 12u supper, plus sliding scale, tdd 50 units docusate sodium 100 mg tablet 100 mg PO BID PRN (Reason: Anxiety) lorazepam 0.5 mg tablet 0.5 mg PO BID Rx Instructions: ordered prn but pt takes every day bid pravastatin 40 mg tablet 40 mg PO HS (DME) lancets [BD Ultra Fine Lancets] 33 gauge misc See Rx Instructions .ROUTE .MEDSUPPLY Qty: 100 Rx Instructions: 3 X daily (DME) blood-glucose meter Kit See Rx Instructions .ROUTE .MEDSUPPLY Qty: 1 Rx Instructions: As directed (DME) pen needle, diabetic [Easy Comfort Pen [place]] 31 gauge x 5/16" needle See Rx Instructions .ROUTE .MEDSUPPLY Qty: 1200 Rx Instructions: Inject insulin four times daily folic acid 1 mg tablet 2 mg PO DAILY enalapril maleate 20 mg tablet 20 mg PO BID Rx Instructions: dr. acevedo suggests possibly holding med Victoza 2-Lazaro 0.6 mg/0.1 mL (18 mg/3 mL) pen injector See Rx Instructions subcut .COMPLEX Qty: 6 2RF Hold Instructions: in patient Rx Instructions: inject 0.6mg subcutaneously once daily x 7 days; then 1.2mg daily, not to exceed 1.8mg/day subcut allopurinol 100 mg tablet 100 mg PO QAM carvedilol 25 mg tablet 50 mg PO BID pantoprazole 40 mg tablet,delayed release (DR/EC) 40 mg PO QAM acetaminophen [Tylenol Extra Strength] 500 mg Tablet 500 mg PO QID PRN (Reason: Pain) acetaminophen 650 mg Tablet Extended Release 650 mg PO Q8H PRN (Reason: Pain) furosemide 40 mg tablet 80 mg PO QAM Discontinued gabapentin 300 mg capsule 300 mg PO TID Discharge Orders: Discharge Order (Routine); Ordered 11/08/22 Ordered By: Najma Drew Admission Data Admit Date/Time: 11/06/22 01:03 Attending Provider: Amanda Turner Admit Provider: Ana Lilia Tang Primary Care Provider: Glen Sparrow Other Providers: Ana Lilia Tang ; Mario Alberto Robledo Other Interventions: Discharge Summary Assessment (RN) Last Done: 11/08/22 15:02 Supervising Physician Co-Signing Physician Notes PA Supervision Note: I did not personally see or examine the patient today, but I verified all arechiga points of ROBIN Drew's assessment and plan with the following exceptions/additions: None Coding Level of Care Code HOSP INP/OBS DISCH >30 MIN Diagnoses JEANIE (acute kidney injury) N17.9 Acute UTI (urinary tract infection) N39.0 Hyperglycemia R73.9 Hyperparathyroidism E21.3 Hypertension I10 Hyperlipidemia E78.5 Hypomagnesemia E83.42 Chronic kidney disease, stage 4 (severe) N18.4 Type 2 diabetes mellitus with diabetic neuropathy, with long-term current use of insulin E11.40; Z79.4 Hyperkalemia E87.5 Lyme borreliosis A69.20 B12 deficiency E53.8
--- NOTE | 2022-11-08 13:32 | Nephrology Progress Note ---
Date of Service November 08, 2022 Assessment & Plan (1) JEANIE (acute kidney injury): Plan: * Kidney function is stable * Volume statu acceptable * Continue to hold Enalapril and Furosemide * Repeat a metabolic profile on Thursday or Thursday * Follow up in the nephrology clinic will be scheduled with me for next week on * Low potassium diet reviewed (2) Chronic kidney disease, stage 4 (severe): Plan: * CKD stage G4/A3 (advanced impairment) w/ baseline Cr 2.0. 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 * Transitioned to oral Keflex today. (4) Hypertension: Plan: * Holding Enalapril and Furosemide due to dehydration/JEANIE * BP remains acceptable - will monitor Admission and Anticipated Discharge Date Admission Date: November 06, 2022 Subjective No acute events overnight. Charlene feels well today. She would like to be discharged home and was agreeable to a plan for close outpatient follow up. Appetite is good. She denies any lightheadedness, dizziness. No dyspnea. No GI symptoms. BP reasonable. Review of Systems Review of Systems: All systems reviewed & are unremarkable except as noted in HPI & below Physical Exam Constitutional: not in distress Eyes: PERRL, conjunctivae normal, anicteric sclerae ENMT: Mouth: + dry oral mucous membranes Neck: trachea midline, no thyromegaly Respiratory: normal respiratory effort, lungs clear to auscultation Cardiovascular: RRR, no murmur, no edema Gastrointestinal (Abdomen): normal bowel sounds, soft, nontender, no hepatosplenomegaly Skin: + turgor decreased Neurologic: awake Speech / Cognition: normal speech and normal cognition Results & Data ([place]) Vital Signs (Past 12 Hours) Vital Signs Temp Pulse Resp BP Pulse Ox O2 Del Method 11/08/22 11:47 36.7 C 73 16 158/60 H 96 Room Air 11/08/22 07:18 36.7 C 71 16 149/80 H 96 Room Air 11/08/22 03:05 36.7 C 75 18 150/75 H 96 Room Air Laboratory Results Laboratory Results - last 24 hr 11/07/22 11/07/22 11/08/22 16:19 20:13 05:42 WBC 6.22 RBC 2.37 L Hgb 7.8 L Hct 23.7 L MCV 100.0 MCH 32.9 MCHC 32.9 RDW Std Deviation 53.7 H RDW Coeff of Marian 14.9 H Plt Count 225 MPV 11.2 Sodium Potassium Chloride Carbon Dioxide Anion Gap BUN Creatinine Est Cr Clr Drug Dosing Est GFR ( Amer) Est GFR (Non-Af Amer) BUN/Creatinine Ratio Glucose POC Glucose 129 H 123 H Calcium Magnesium Lyme Disease IgG Ab Lyme IgG (Western Blot) Lyme IgG 18 kDa Band Lyme IgG 23 kDa Band Lyme IgG 28 kDa Band Lyme IgG 30 kDa Band Lyme IgG 39 kDa Band Lyme IgG 41 kDa Band Lyme IgG 45 kDa Band Lyme IgG 58 kDa Band Lyme IgG 66 kDa Band Lyme IgG 93 kDa Band Lyme IgM Ab (WB) Lyme Disease IgM Ab Lyme IgM 23 kDa Band Lyme IgM 39 kDa Band Lyme IgM 41 kDa Band 11/08/22 11/08/22 11/08/22 05:42 07:46 10:21 WBC RBC Hgb Hct MCV MCH MCHC RDW Std Deviation RDW Coeff of Marian Plt Count MPV Sodium 142 Potassium 4.8 Chloride 116 H Carbon Dioxide 21 Anion Gap 5 BUN 66 H Creatinine 2.95 H Est Cr Clr Drug Dosing 23.2 Est GFR ( Amer) 17.1 Est GFR (Non-Af Amer) 14.8 BUN/Creatinine Ratio 22.4 H Glucose 125 H POC Glucose 130 H Calcium 9.0 Magnesium 1.8 Lyme Disease IgG Ab Positive A Lyme IgG (Western Blot) Lyme IgG 18 kDa Band Lyme IgG 23 kDa Band Lyme IgG 28 kDa Band Lyme IgG 30 kDa Band Lyme IgG 39 kDa Band Lyme IgG 41 kDa Band Lyme IgG 45 kDa Band Lyme IgG 58 kDa Band Lyme IgG 66 kDa Band Lyme IgG 93 kDa Band Lyme IgM Ab (WB) Lyme Disease IgM Ab Negative Lyme IgM 23 kDa Band Lyme IgM 39 kDa Band Lyme IgM 41 kDa Band 11/08/22 11/08/22 10:21 11:33 WBC RBC Hgb Hct MCV MCH MCHC RDW Std Deviation RDW Coeff of Marian Plt Count MPV Sodium Potassium Chloride Carbon Dioxide Anion Gap BUN Creatinine Est Cr Clr Drug Dosing Est GFR ( Amer) Est GFR (Non-Af Amer) BUN/Creatinine Ratio Glucose POC Glucose 176 H Calcium Magnesium Lyme Disease IgG Ab Lyme IgG (Western Blot) Pending Lyme IgG 18 kDa Band Pending Lyme IgG 23 kDa Band Pending Lyme IgG 28 kDa Band Pending Lyme IgG 30 kDa Band Pending Lyme IgG 39 kDa Band Pending Lyme IgG 41 kDa Band Pending Lyme IgG 45 kDa Band Pending Lyme IgG 58 kDa Band Pending Lyme IgG 66 kDa Band Pending Lyme IgG 93 kDa Band Pending Lyme IgM Ab (WB) Pending Lyme Disease IgM Ab Lyme IgM 23 kDa Band Pending Lyme IgM 39 kDa Band Pending Lyme IgM 41 kDa Band Pending PG Care Time/CCT Total # of Minutes Spent Total Time Spent with Patient: Total time spent is greater than 50% in coordination of care (as documented) at patient's floor/unit and/or counseling patient: Coding Level of Care Code 68762 SUB INP/OBS CARE 3/50MIN Diagnoses JEANIE (acute kidney injury) N17.9 Chronic kidney disease, stage 4 (severe) N18.4 Acute UTI (urinary tract infection) N39.0 Hypertension I10
[2022-11-08] MEDS ORDERED: cephALEXin 250 MG CAP PO SCH (21:00)
[2022-11-12 07:07] LABS: 18KDIGG Band NON-REACTIVE; 23KDIGG Band REACTIVE; 23KDIGM Band NON-REACTIVE; 28KDIGG Band REACTIVE; 30KDIGG Band NON-REACTIVE; 39KDIGG Band REACTIVE; 39KDIGM Band NON-REACTIVE; 41KDIGG Band REACTIVE; 41KDIGM Band NON-REACTIVE; 45KDIGG Band NON-REACTIVE; 58KDIGG Band REACTIVE; 66KDIGG Band NON-REACTIVE; 93KDIGG Band REACTIVE; Lyme Antibodies, WB IgG POSITIVE (NEGATIVE); Lyme Antibodies, WB IgM NEGATIVE (NEGATIVE)
== END 2022-11-08 15:43 | disposition home health service (06) ==
LOC: ED 21:35 → INTOOBSV 11-06 01:03 → 2N 11-06 01:03 → SUATTDRO 11-06 01:03 → 2N 11-06 01:44